=== PATIENT | male | born 1985 | race Caucasian/White ===

== ENCOUNTER → 2018-01-27 08:28 | Outpatient (CLI) | payer OTHER, MEDICAID, SELFPAY ==
[2018-01-27 10:26] LABS: Add Manual Diff / Slide Review NO; Basophils Percent Auto 0.7 % (0-2); Eosinophils Percent Auto 0.4 % (2-4); Hemoglobin 10.9 g/dL (13.5-17.5); Lymphocytes Percent Auto 7.6 % (25-40); Mean Corpuscular HGB Conc 32.2 % (30-36); Mean Corpuscular Hemoglobin 24.4 PG (26-34); Mean Corpuscular Volume 75.8 fL (80-100); Monocytes Percent Auto 12.9 % (3-14); Neutrophils Absolute Auto 9300 /uL (3000-5900); Neutrophils Percent Auto 78.4 % (50-75); Platelet Count 518 X10^3/uL (150-400); Red Blood Cell Count 4.48 X10^6/uL (4.5-5.9); Red Cell Distribution Width 17.2 % (11.6-14.8); White Blood Cell Count 11.8 X10^3/uL (4.5-11.0)
[2018-01-27 11:10] LABS: Alanine Aminotransferase 38 IU/L (21-72); Albumin 3.2 g/dL (3.5-5.0); Albumin Globulin Ratio 0.8 (1.0-2.8); Alkaline Phosphatase 138 U/L (38-126); Aspartate Aminotransferase 22 IU/L (17-59); Bilirubin Total 0.5 mg/dL (0.2-1.3); Bilirubin Unconjugated 0.2 mg/dL (0.0-1.1); Cholesterol 95 mg/dL (140-199); Globulin 3.8 g/dL (1.7-4.1); HDL Cholesterol 24 mg/dL (40-60); HEMOLYSIS < 15 (0-50); LDL Cholesterol Calculated 63 mg/dL (<100); Triglycerides 40 mg/dL (35-150)
[2018-01-27 11:19] LABS: Hemoglobin A1C% w Est Avg Glu 5.2 % (4.0-6.0)
[2018-01-27 11:27] LABS: TSH w/ Reflex to FT4 1.26 uIU/mL (0.47-4.68)
[2018-01-27 13:00] LABS: Free T3, Triiodothyronine Free 3.29 pg/mL (2.77-5.27); Free T4, Direct Thyroxine 1.69 ng/dL (0.78-2.19)
== END ==
PROVIDERS: PCP Nurse Practitioner Family; Visit Provider Nurse Practitioner Family
DX: R63.4 Abnormal weight loss (principal)
CPT/HCPCS: 36415; 80061; 80076; 83036; 84439; 84443; 84481; 85025

== ENCOUNTER → 2018-02-01 09:47 | Outpatient (CLI) | payer OTHER, MEDICAID, SELFPAY ==
--- NOTE | 2018-02-01 09:48 | DI.CT.S_ITS ---
PROCEDURE: CT SOFT TISSUE NECK WO CON INDICATIONS: enlarged lymph nodes - concerning labs. TECHNIQUE: Non-contrast 3.0 mm axial sections acquired from the sella to the aortic arch. Additional oblique axial 3.0 mm sections acquired through the pharynx. 3 mm thick coronal and sagittal reformats were generated. For radiation dose reduction, the following was used: automated exposure control. COMPARISON: None. FINDINGS: Image quality: Significantly limited by the absence of intravenous contrast. Lymph nodes: At the base of the right neck deep to the sternocleidomastoid muscle there is a large lymph node measuring up to 3.2 cm AP, 4.1 cm transverse and 6.2 cm craniocaudad. The exact boundaries of this mass are difficult to visualize given the absence of intravenous contrast, but this extends into the anterior aspect of the right supraclavicular fossa and does not appear to invade adjacent structures. A second smaller enlarged lymph node is seen at the junction of the base of the right neck and supraclavicular fossa on the right immediately deep to the skin surface measuring up to 2.1 x 2.4 x 2.5 cm. Additional smaller but enlarged lymph nodes are seen more laterally within the right supraclavicular fossa and extending into the right axilla superiorly where the largest lymph node present is rounded and measures up to 2 cm. Vessels: Non-opacified vessels appear normal in caliber. Neck spaces: The oropharynx, nasopharynx, and pharynx demonstrate no mucosal lesions. The vocal cords, false vocal cords, pyriform sinuses, epiglottis, vallecula, and tongue base all appear normal. Extramucosal spaces appear unremarkable. Glands: The parotid and submandibular glands appear normal, without stones are relatively poorly seen due to absence of intravenous contrast. Thyroid gland appears normal where well visualized. Miscellaneous: Visualized brain and orbits appear normal. Lung apices appear clear. Superficial soft tissues appear normal. The within the superior mediastinum bilaterally, right greater than left, additional enlarged nodes are seen, the largest which is present on the right compressing the trachea moderately measuring up to 6.9 x 5.5 cm, and extending inferiorly below the imaging margin further into the right mediastinum. The inferior margin of the trachea is significantly compressed as is the origin of the right mainstem bronchus, reduced to at least 50% of its normal diameter in the AP dimension. IMPRESSION: The study is significantly compromised by the absence of intravenous contrast. Malignant appearing adenopathy is present bilaterally within the upper mediastinum, and present at the right neck inferiorly and extending into the right supraclavicular fossa. This then extends into the right axilla to a mild degree. A small degree of adenopathy is also present at the inferior aspect of the left supraclavicular fossa contiguous with the definite left-sided adenopathy present within the mediastinum. Note is made of significant compression of the lower margin of the trachea and the visualized portion of the right mainstem bronchus. Surgical consultation is recommended, contrast enhanced CT scanning of the chest abdomen and pelvis is recommended. Presumed etiology is lymphoma. Findings were called to the office of the ordering health care provider with results provided to a bio medical technician who will convey the information directly to the ordering health care provider. Dictated by: Gallo Porter M.D. on 02/01/2018 at 11:50 Approved by: Gallo Porter M.D. on 02/01/2018 at 12:05
== END ==
PROVIDERS: PCP Nurse Practitioner Family; Visit Provider Nurse Practitioner Family
DX: R59.0 Localized enlarged lymph nodes (principal)
CPT/HCPCS: 70490

== ENCOUNTER → 2018-02-08 12:01 | Outpatient (CLI) | payer OTHER, MEDICAID, SELFPAY ==
--- NOTE | 2018-02-08 12:56 | DI.CT.S_ITS ---
PROCEDURE: CT CHEST ABD PEL W CON INDICATIONS: metastatic disease TECHNIQUE: After the administration of oral and intravenous contrast, 5 mm thick sections acquired from the lung apices to the symphysis. 5 mm coronal and sagittal reformats were performed, with additional 7 mm coronal MIP reformats through the lungs. For radiation dose reduction, the following was used: automated exposure control, adjustment of mA and/or kV according to patient size. COMPARISON: [facility], CT, CT SOFT TISSUE NECK WO CON, 02/01/2018, 9:47. FINDINGS: Image quality: Excellent. CHEST: Lungs and pleura: No acute airspace opacities. 4 mm nodule noted in the lateral segment of the right middle lobe (series 3, image 35). Trace right-sided pleural effusion. No pneumothorax. Central and peripheral airways appear patent and normal in caliber. Mediastinum: Heart size is normal. No pericardial effusion. Bulky mediastinal, right hilar and left hilar lymphadenopathy noted. No axillary lymphadenopathy. Thoracic aorta and central pulmonary arteries are normal in size. Esophagus is normal in caliber. No hiatal hernia. Chest wall: Bulky right bilateral level IV neck lymphadenopathy noted. Bulky right supraclavicular fossa lymphadenopathy is noted. Thyroid gland is within normal limits. ABDOMEN: Solid organs: Liver is normal in size and enhancement. 9 mm cyst noted in the right lobe of the liver. 4 mm hypoattenuating lesion noted in the lower right hepatic lobe and the lateral segment of the left hepatic lobe which may represent a small cysts, however lesions are too small to definitively characterize. Gallbladder is within normal limits. Biliary system is non dilated. Pancreas enhances normally. Spleen is normal in size and enhancement. No adrenal nodules. Kidneys demonstrate normal size and enhancement, without hydronephrosis. 2 mm nonobstructing stones noted in the lower pole of the left kidney. One of the 2 mm nonobstructing stone noted in the upper pole of the right kidney. Peritoneum and bowel: Bowel loops demonstrate normal wall thickness and caliber. No free fluid or air. Nodes and vessels: 1.1 cm aortocaval enlarged lymph node is noted in the upper retroperitoneum. No mesenteric adenopathy by size criteria. Aorta and inferior vena cava are normal in size. Miscellaneous: No ventral hernias. PELVIS: Genitourinary: Bladder wall thickness is normal. Miscellaneous: No inguinal hernias or adenopathy. Bones: No suspicious bony lesions. No vertebral body compression fractures. IMPRESSION: 1. Bulky bilateral neck base, right supraclavicular fossa, mediastinal and bilateral hilar lymphadenopathy concerning for lymphoma or metastatic disease. 2. 1.1 cm retrocaval upper retroperitoneal lymphadenopathy concerning for lymphoma versus metastatic disease. 3. 2 mm nonobstructing bilateral renal stones. 4. 4 mm right middle lobe nodule. Recommend followup imaging based on criteria outlined below. 5. Trace right-sided pleural effusion. Fleischner Society criteria for SOLID lung nodule followup. Nodule size (mm)Low-risk patientHigh-risk patient<6 (single or multiple)No routine followup.Optional CT at 12 months. 6-8 (single or multiple)CT at 6-12 months, then optional CT at 18-24 mo.CT at 6-12 months, then CT at 18-24 months. >8 (single)CT at 3 months, PET-CT, or biopsy. Same as for low-risk pts. >8 (multiple)CT at 3-6 months, then optional CT at 18-24 mo.CT at 3-6 months, then CT at 18-24 months. Recommendations do not apply to lung cancer screening, patients with immunosuppression, or patients with known primary cancer. Dictated by: Kasey Peck MD, PhD on 02/08/2018 at 14:00 Approved by: Kasey Peck MD, PhD on 02/08/2018 at 14:11
== END ==
PROVIDERS: PCP Nurse Practitioner Family; Visit Provider Nurse Practitioner Family
DX: C79.9 Secondary malignant neoplasm of unspecified site (principal); R59.1 Generalized enlarged lymph nodes; N20.0 Calculus of kidney; R91.1 Solitary pulmonary nodule
CPT/HCPCS: 71260; 74177; Q9967

== ENCOUNTER 2018-02-10 10:55 | Day surgery (SDC) | payer OTHER, MEDICAID, SELFPAY ==
[2018-02-10] VITALS (11 sets, daily range): BP systolic 97–128; BP diastolic 65–81; PULSE 115–133; RESP 8–18; TEMP 36.7–37.8; O2SAT 89–97; BMI 18.4
--- NOTE | 2018-02-10 | PATH_ITS ---
Note [facility] Accession Number: [id number] TESTS RESULT FLAG UNITS REF RANGE LAB Clinician Provided Cytology Information No. of containers..04 Previously Prepared Cytology Slide 01 CERVICAL LYMPH NODE DIAGNOSIS: [A] 01 CERVICAL LYMPH NODE, FINE NEEDLE ASPIRATION. SUSPICIOUS FOR LYMPHOMA, SEE COMMENT. COMMENT: EXAMINATION OF THE ASPIRATE SMEARS (TWO ALCOHOL-FIXED AND TWO AIR-DRIED, GIEMSA STAINED SLIDES) REVEALED SCATTERED ATYPICAL LYMPHOID CELLS WITH ENLARGED NUCLEUS, PROMINENT NUCLEOLUS, ABUNDANT CYTOPLASM, OCCASIONALLY BINUCLEATE/MULTINUCLEATED CELLS (HODGKIN-LIKE AND ANDREA-MESERET LIKE CELLS), IN A BACKGROUND OF PREDOMINANTLY SMALL LYMPHOCYTES AND NEUTROPHILS. ALTHOUGH THESE FEATURES ARE HIGHLY SUSPICIOUS FOR HODGKIN LYMPHOMA, THE POSSIBILITY OF A B- OR T-CELL NON-HODGKIN LYMPHOMA WITH HODGKIN-LIKE OR QHQA-DRIUMHHYF-PFNW CELLS CANNOT BE ENTIRELY EXCLUDED. FURTHER WORK-UP WITH EXCISIONAL BIOPSY IS RECOMMENDED TO ACCURATELY LABEL THOSE ATYPICAL LYMPHOCYTES AND OBTAIN A DEFINITE DIAGNOSIS. Pathologist ICD10: 01 R59.0 Deysi Borjas MD, Pathologist NPI- [id number] Raffy Key, Merchandise Pickup/Receiving Associate ([facility]) 01 0 /VDU FLAG LEGEND: L-Low Normal,H-High Normal,LL-Alert Low,HH-Alert High <-Panic Low,>-Panic High,A-Abnormal,AA-Critical Abnormal Performed at: 01 =Z [facility] [address] [place] [address] [address] [facility], [place] [address] Avelino Sandoval MD, Performed at: 01 [facility] [address], [place], [place] [id number] MD Avelino Sandoval MD Phone: [phone]
[2018-02-10] MEDS: LACTATED RINGERS 1,000 ML 100 ML IV (11:42)
--- NOTE | 2018-02-10 12:25 | PM.PREOP ---
Pre-operative Note Interval Note Pre-op Check: Yes History & Physical Reviewed by Physician Changes: No
[2018-02-10] MEDS: CEFAZOLIN 2 GM/100 ML FROZ.PIGGY IV (12:50)
--- NOTE | 2018-02-10 13:21 | SUR.OPER ---
Supine on padded OR bed, head on pillow, BILATERAL arms padded and tucked at side, legs uncrossed, safety belt at thigh, tape over blanket over lower legs .
[2018-02-10] MEDS: BUPIVACAINE 0.5% (PF) VIAL 30 ML INJ (13:38)
[2018-02-10] MEDS: LIDOCAINE 1% W/EPI INJ 20 ML INJ (13:39)
--- NOTE | 2018-02-10 13:51 | P.OP_ITS ---
Operative Date/Time/Diagnoses Date of procedure: 02/10/18 Time of procedure: 13:49 Pre-op diagnosis: Right neck mass Post-op diagnosis: same Procedure & Clinicians Procedure: Biopsy of Right Neck Mass Same procedure as scheduled: Yes Indications: Unexplained weight loss and enlarging right neck mass consistent with bulky adenopathy Surgeon: Marleny Calvo Click Yes if Unassisted: Yes Anesthesia Type: General (Kotlarczyk) Operative Notes Findings: White hypervascular mass with a lobular, glossy interior Closure Type: primary Implants & Drains: Portions of the mass sent for lymph node protocol Estimated Blood Loss (mL): 3 Procedure in detail: After obtaining informed consent, the patient was brought to the operating room and and placed in supine position on the operating table. Following successful induction of general endotracheal anesthesia, appropriate padding of all bony prominences and placement of appropriate monitors, the right neck was prepped and draped in the standard surgical fashion. A Time Out was held per SCOAP protocol. Following infiltration with local anesthetic to create a field block, an incision was created at the base of the neck directly over the lesion. This was carried to the platysma and the muscle over the lesion divided with cautery. The mass was exposed in the field. It was noted to be flanked and draped with distended veins. These were gently retracted. It was not possible to remove the entire mass. A 2 cm wedge was taken from the center of the lesion. The internal surface of the mass had a lobular, grayish and glossy appearance. The tissue was divided into 4 segments for pathological analysis. The wound was checked for hemostasis. The entire cut surface of the node was noted to ooze nearly constantly. I chose to place Surgicel over the open surface and pressure was held for 5 minutes. The wound was then noted to be hemostatic. The platysma was closed with vicryl suture and monocryl was placed in the skin. Exofin was applied to the skin. All sponge, needle, and instrument counts were correct at the conclusion of the case. The patient was allowed to awaken from anesthesia without difficulty and taken to the post anesthesia care unit in good condition. Complications: none Condition: stable Disposition: PACU Plan for aftercare: 1. Discharge to home after an appropriate interval of observation 2. Follow-up with me in 10 days. 3. The patient has already been referred to Oncology here at the [facility].
--- NOTE | 2018-02-10 14:40 | SUR.PHASEII ---
dr coronado to bedside to speak with pt and his dad.
--- NOTE | 2018-02-10 14:41 | SUR.PHASEII ---
pt on nasal cannula 1/l and continuous pulse ox. surgical site c/d/i.
--- NOTE | 2018-02-10 14:54 | SUR.PHASEII ---
DR KELLY IN TO SPEAK WITH PT AND HIS FATHER. PT RESTING QUIETLY WITH FATHER AT BEDSIDE, PT WITH NO C/O VOICED, ICE PACK TO NECK INCISION SITE, INCISION SITE CLEAN AND INTACT WITH NO REDNESS OR SWELLING NOTED. PT TOLERATING PO FLUIDS WELL, DENIES ANY NAUSEA OR VOMITING. WILL CONTINUE TO OBSERVE AND MONITOR.
[2018-02-10] MEDS: OXYCODONE IR 5 MG TABLET PO (16:00)
--- NOTE | 2018-02-10 16:34 | SUR.PHASEII ---
1625 pt tolerating po juice, incision site is clean and dry, medicated with po pain pill for mild discomfort, pt denies any nausea. instructions reviewed with pt and father with verbalized understanding.
--- NOTE | 2018-02-10 21:14 | PATH_ITS ---
[id number] Control ID: [id number] [facility] PATHOLOGY ONLY [id number] [address] [place] [address] Patient Details MATHIEU KOO : 1985 Age(y/m/d): Gender: M SSN: [id number] Specimen Details Date collected: 02/10/20182113 Local Date received: 02/10/2018 Date entered: 02/10/2018 Date reported: 02/17/2018 1305 ET Physician Details Ordering: Maddison Calvo Referring: ID: ESTEPHANIA NPI: Additional Information: Clinical Info: [id number] Pathology Report Tests Ordered: Clinician Provided ICD Code(s) & Clinical History: Material Submitted: () PART A: CERVICAL LYMPH NODE Microscopic Description: (01) H/E-stained sections of both Parts A and B reveal portions of an excisional biopsy of lymph node with similar histologic features. The luis architecture is essentially entirely effaced by an atypical infiltrate comprised of abundant large, atypical, discohesive cells in a mixed inflammatory background of smaller lymphocytes, histiocytes, and plasma cells, with fewer neutrophils and eosinophils. There is increased background fibrosis, and in some foci, thick fibrous bands surround nodules of the atypical infiltrate. The neoplastic cells include Hodgkin variant cells, Nam-Nguyễn cells, and scattered mummified and multinucleate cells. No discrete zones of geographic/coagulative necrosis are evident. Select immunohistochemical studies* and a chromogenic EBER1 in-situ hybridization study* were performed on block B1 for further evaluation of the neoplastic cells, with accompanying positive and negative controls. The neoplastic cells express uniform CD30, MUM1, and Pax5 (with weak to moderate intensity), at least variable CD15 (with either a Golgi-only or Golgi and membranous pattern), and variable Oct2 with very weak intensity. The neoplastic cells are negative for CD20, Bob1, CD3, CD43, and ALK1. The neoplastic cells are also negative for EBV by MIGUEL-1 in-situ hybridization. * Technical note: These tests and their performance characteristics have been determined by [facility]. They have not been cleared or approved by the U.S. Food and Drug Administration. The FDA has determined that such clearance or approval is not necessary. These tests are used for clinical purposes, and should not be regarded as investigational or for research. PART B: CERVICAL LYMPH NODE Diagnosis: (01) Parts A and B: CERVICAL LYMPH NODE, EXCISIONAL BIOPSIES: Classic Hodgkin Lymphoma (CHL; see Comments) 02/17/2018 Pathologist Provided ICD Code(s): () C81.11 CPT Codes: () 191005, 049390, T12489, M71528, J52031 Gross Description: (01) Received in formalin, labeled cervical lymph node, is a piece of marte-soriano rubbery tissue (1.3 x 1.0 x 0.5 cm). Bisected and entirely submitted in cassette A1. Received in B plus fix, labeled cervical lymph node, is a blue - stained piece of rubbery tissue (1.3 x 1.0 x 0.8 cm). Bisected and entirely submitted in cassette B1. Note: Per the requisition, tissue was also received in two tubes of RPMI to be sent to flow cytometry for analysis. Per the requisition, sterile slides in B fix and sterile slides-dry were also submitted. [id number]) [facility] Comments: (01) The architectural features of the lymphoma in these cervical lymph node biopsies favor a nodular sclerosis CHL histologic subtype. Flow cytometric evaluation was also performed on a separate sample of the patient's lymph node preserved in RPMI, which did not reveal any immunophenotypic evidence of a non- Hodgkin lymphoma ([id number]), although large Hodgkin-like cells were seen on a cytocentrifuge preparation of the specimen. Note that Hodgkin lymphoma is typically not able to be identified in routine flow cytometric analyses. ACC: [id number] PID: [id number] Electronically signed by () Mell Urbina MD, Pathologist NPI- [id number]
== END 2018-02-10 16:35 ==
LOC: OR 10:56
PROVIDERS: PCP Nurse Practitioner Family; Visit Provider Surgery
PROC: (CPT 21550; principal; 2018-02-10 14:00)
DX: R59.0 Localized enlarged lymph nodes (principal); R63.4 Abnormal weight loss
CPT/HCPCS: 21550; 88305; 88307; 88341; 88342; 88365; J0330; J0690; J1100; J2250; J2405; J2704; J3010

== ENCOUNTER → 2018-02-23 11:37 | Outpatient (CLI) | payer OTHER, MEDICAID, SELFPAY ==
--- NOTE | 2018-02-25 10:04 | PM.PFT.1 ---
Pulmonary Function Test Referral & Results Date Patient Seen: 02/23/18 Requesting provider: Dustin Conner Results: The spirometry demonstrates an FVC of 3.90 L which is 63% of predicted. The FEV1 was measured at 3.22 L which is 65% of predicted. The FEV1/FVC ratio was 83 which is 102% of predicted. Following the administration of bronchodilator there was no appreciable change. Lung volumes show an SVC of 3.8 L which is 66% of predicted. The diffusing capacity was measured at 25.2 to which is 66% of predicted. No hemoglobin value was provided, so no correction for potential anemia could be made, if appropriate. The maximum voluntary ventilation was normal Interpretation: This study demonstrates moderate obstructive lung disease based on reduction in FEV1 although patient's flow volume curve does not show the usual concave shape to suggest serious obstructive lung disease. There is also evidence of restrictive lung disease based on reduction in lung volumes. There is also a similar mild to moderate reduction in diffusing capacity suggesting element of disease at the capillary alveolar level. This is altogether consistent with a diagnosis of COPD. Clinical correlation suggested.
== END ==
PROVIDERS: Visit Provider Internal Medicine Hematology & Oncology
DX: C81.10 Nodular sclerosis Hodgkin lymphoma, unspecified site (principal)
CPT/HCPCS: 94010; 94060; 94726; 94729

== ENCOUNTER 2018-02-24 12:59 | Day surgery (SDC) | payer OTHER, MEDICAID, SELFPAY ==
[2018-02-22 08:50] VITALS: BMI 18.4
--- NOTE | 2018-02-24 | DI.RAD.S_ITS ---
PROCEDURE: XR CHEST 1V INDICATIONS: POST OP PORT A CATH INSERTION TECHNIQUE: One view of the chest was acquired. COMPARISON: [facility], CT, CT CHEST ABD PEL W CON, 02/08/2018, 13:27. [facility], CR, XR CHEST 1V, 02/24/2018, 15:09. FINDINGS: Surgical changes and devices: There is a new left chest wall subclavian Port-A-Cath with the tip projecting over the left innominate vein. Lungs and pleura: No pleural effusions or pneumothorax. No focal consolidation. Mediastinum: There is mediastinal widening and right hilar fullness consistent with lymphadenopathy seen on recent CT. Heart size is normal. Bones and chest wall: No suspicious bony lesions. Overlying soft tissues appear unremarkable. IMPRESSION: 1. No evidence of pneumothorax. 2. Mediastinal and right hilar lymphadenopathy redemonstrated. Dictated by: Avelino Vasquez M.D. on 02/24/2018 at 16:36 Approved by: Avelino Vasquez M.D. on 02/24/2018 at 16:37
--- NOTE | 2018-02-24 | DI.RAD.S_ITS ---
PROCEDURE: XR CHEST 1V INDICATIONS: PORT A CATH INSERTION TECHNIQUE: One view of the chest was acquired. COMPARISON: [facility], FRANCES, XR CHEST 1V, 02/24/2018, 15:36. [facility], , CHEST 2 VIEW, 11/13/2016, 12:18. FINDINGS: Single fluoroscopic view of the chest demonstrates a localization wire projecting over the left innominate vein extending into the superior vena cava. IMPRESSION: 1. Fluoroscopic image demonstrates localization wire extending into the expected region of the superior vena cava. Dictated by: Avelino Vasquez M.D. on 02/24/2018 at 16:33 Approved by: Avelino Vasquez M.D. on 02/24/2018 at 16:34
[2018-02-24 13:19] VITALS: BP 115/62; PULSE 130; RESP 28; TEMP 36.7; O2SAT 98; BMI 17.5
[2018-02-24] MEDS: LACTATED RINGERS 1,000 ML 42 ML IV (13:42)
[2018-02-24] MEDS: CEFAZOLIN 2 GM/100 ML FROZ.PIGGY IV (14:52)
--- NOTE | 2018-02-24 15:11 | SUR.OPER ---
Supine on padded OR bed, head on pillow, left arm padded and tucked at side, legs uncrossed, safety belt at thigh, tape over blanket over lower legs .
[2018-02-24] MEDS: BUPIVACAINE 0.5% (PF) VIAL 30 ML INJ (15:18)
[2018-02-24] MEDS: LIDOCAINE 1% W/EPI INJ 20 ML INJ (15:19)
[2018-02-24] MEDS: SODIUM CHLORIDE 0.9% FLUSH 10 ML IV (15:20)
--- NOTE | 2018-02-24 15:31 | P.OP_ITS ---
Operative Date/Time/Diagnoses Date of procedure: 02/24/18 Time of procedure: 15:29 Pre-op diagnosis: Hodgkin's lymphoma Post-op diagnosis: same Procedure & Clinicians Procedure: Left subclavian power port placement Same procedure as scheduled: Yes Indications: Facilitation of chemotherapy Surgeon: Marleny Calvo Click Yes if Unassisted: Yes Anesthesia Type: MAC +/- (Dr. Rosen) Operative Notes Findings: Power port in good position in the superior vena cava Closure Type: primary Specimen(s): none sent Implants & Drains: Low-profile PowerPort Estimated Blood Loss (mL): 5 Procedure in detail: After obtaining informed consent, the patient was brought to the operating room and placed in the supine position on the operating table. Following successful induction of general endotracheal anesthesia, appropriate padding of all bony prominences, and placement of appropriate monitors, the left chest was prepped and draped in a standard surgical fashion. A timeout was held per SCOAP protocol.A mixture of local anesthetics was infiltrated in the deltopectoral groove on the left side. The right subclavian vein was accessed via the Seldinger technique and a wire was gently placed into the vein. Fluoroscopy was used to verify position of the wire in the subclavian vein. We next created a pocket of approximately 2 cm inferior to the access site of the vein. This was checked for size and found to fit the port nicely. The included tunneling device was used to place the tubing and the pocket connecting it to the access site of the subclavian vein. The tubing was trimmed to an appropriate length and connected to the Port-A-Cath. The Port -A-Cath was sewn into place in the pocket using interrupted Prolene sutures. The pocket was closed in 2 layers. The dilator and introducer were then gently passed over the wire and into the subclavian vein. The wire and dilator were removed leaving only the introducer. The tubing was then placed in the introducer and the introducer removed per branch assistant's directions. The port was then flushed with saline solution and found to be functional and in good position. It was then hep-locked with 2000 units of heparin.The incision was closed in 2 layers with Vicryl and Monocryl sutures. Dermabond was applied to the skin. All sponge, needle, and instrument counts were correct at the conclusion of the case. Patient was allowed to awaken from anesthesia and taken to the post-anesthesia care unit in good condition. Complications: none Condition: stable Disposition: PACU Plan for aftercare: 1. Discharge to home 2. The port is ready for use
[2018-02-24 15:35] VITALS: BP 108/62; PULSE 139; RESP 18; TEMP 37.2; O2SAT 96
== END 2018-02-24 16:08 | disposition home or self-care (01) ==
PROVIDERS: PCP Nurse Practitioner Family; Visit Provider Surgery
PROC: (CPT 36561; principal; 2018-02-24 13:45)
DX: C81.90 Hodgkin lymphoma, unspecified, unspecified site (principal); Z45.2 Encounter for adjustment and management of vascular access device
CPT/HCPCS: 36561; 71045; 76000; C1788; J0690; J1644; J2250; J2704; J3010

== ENCOUNTER → 2018-03-10 09:38 | Outpatient (CLI) | payer OTHER, MEDICAID, SELFPAY ==
--- NOTE | 2018-03-10 09:41 | DI.NM.S_ITS ---
PROCEDURE: [facility] RADIOPHARM[facility]UTICAL: 24.8 mCi Tc-99m labeled autologous red cells IV. INDICATIONS: Nodular sclerosis Hodgkin lymphoma TECHNIQUE: After intravenous administration of autologous labeled WBC, [place] views of the chest were obtained. A region of interest was drawn around the left ventricle to calculate left ventricle ejection fraction. COMPARISON: None. FINDINGS: The heart and great vessels are of normal size and configuration. The left ventricle contracts normally, with left ventricle ejection fraction of 62.6%. Normal ejection fractions for this study are above 55%. A drop from baseline ejection fraction of greater than 10 percentage points or to below 45% on follow-up studies may be considered significant. IMPRESSION: Normal left ventricular ejection fraction (62.6%). Dictated by: Clarisa Duarte M.D. on 03/10/2018 at 12:02 Approved by: Clarisa Duarte M.D. on 03/10/2018 at 12:03
== END ==
PROVIDERS: PCP Nurse Practitioner Family; Visit Provider Internal Medicine Hematology & Oncology
DX: C81.10 Nodular sclerosis Hodgkin lymphoma, unspecified site (principal)
CPT/HCPCS: 78472; A9512; A9538

== ENCOUNTER → 2018-08-19 13:30 | Oncology outpatient (ONC) | payer OTHER, MEDICAID, SELFPAY ==
--- NOTE | 2018-02-19 10:06 | P.CONONC_ITS ---
History of Present Illness - Data of Consult Patient: new to practice Consult date: 02/19/18 Requesting Physician: Marleny Calvo MD Primary Care Provider: CHERELLE Breen - Consult Narrative Reason for consult: Newly diagnosed classical Hodgkin's lymphoma Narrative: [place] Shrestha II is a 32 year old male without any past medical or surgical history. Patient reported a ?massive? weight loss of about 20 lb over maybe the past 2-3 months. In addition, patient has been losing energy and feeling tired. Patient also endorsed an early fullness after eating even though feeling hungry. He denies fever or chills. Patient reports some mild night sweats. Patient thought it might be due to thyroid problems as suggested by his friends. He was also reporting some cough especially at certain positions for example leaning forward and he was not able to lie on the right side. He was initially evaluated by CHERELLE South on January 26, 2018. On physical examination, lymphadenopathy was noted to the right and supraclavicular region. CT soft tissue neck without contrast was obtained on February 01, 2018. The scan showed malignant appearing adenopathy bilaterally within the upper mediastinum, and the right neck inferiorly and extending into the right supraclavicular fossa; these then extends into the right axilla to a mild degree. A small degree of adenopathy is also present and the inferior aspect of the left supraclavicular fossa contiguous with the definite left- sided adenopathy present within the mediastinum. Note was made of significant compression of the lower margin of the trachea and the visualized portion of the right mainstream bronchus. February 08, 2018 CT scan of the chest abdomen and pelvis with contrast was performed. The results showed bilateral bulky neck base lymph nodes, right supraclavicular fossa, mediastinal and bilateral hilar lymphadenopathy concerning for lymphoma or metastatic disease, 1.1 cm retrocaval upper retroperitoneal lymphadenopathy concerning for lymphoma versus metastatic disease, 2 mm nonobstructing bilateral renal stones, 4 mm right middle lobe nodule and right sided trace pleural effusion chief. Patient thereafter was referred to Dr. Calvo for excisional biopsy. February 10, 2018, Dr. Calvo performed biopsy of right neck mass. The surgical pathology reported classic Hodgkin lymphoma. In the comment it says the architectural features of the lymphoma in these cervical lymph node biopsies favor a nodular sclerosis classical Hodgkin's lymphoma histologic subtype. Patient reports pain?: No Home Medications and Allergies Home Medications Medication Instructions Recorded Confirmed Type multivitamin tablet 1 tab PO DAILY 02/09/18 02/19/18 History ondansetron 4 mg PO QID PRN #10 tab 02/10/18 02/19/18 Rx oxycodone 5 mg PO Q4-6H PRN #20 tab 02/10/18 02/19/18 Rx Allergies Allergy/AdvReac Type Severity Reaction Status Date / Time No Known Drug Allergies Allergy Verified 02/09/18 08:58 Medical History - Medical, Surgical, Family History Medical History: Medical History (Last Updated 02/10/18 @ 07:28 by Kylee Chan RN) Cough Recent unexplained weight loss Family History: Family History (Last Reviewed 02/09/18 @ 09:30 by Marleny Calvo MD) Grandmother Diabetes mellitus Cancer - Social History Smoking Status: Never smoker Substance Use Type: former substance user (in college) Alcohol Intake Frequency: holidays/special occasions only Current Occupational Status: unemployed Review of Systems - Patient Self-Reported Symptoms SR Constitution: Weight loss/gain, Fatigue/Malaise, Night Sweats (some) SR respiratory issues: Cough (in certain posture, i.e. slumped over, can sleep on the right side) SR Gastrointestinal issues: Poor or no appetite All systems PM: reviewed and no additional remarkable complaints except as stated Exam Vital signs: Temp 99.8 F H 02/19/18 10:10 Pulse 146 H 02/19/18 10:10 Resp 20 02/19/18 10:10 BP 128/73 02/19/18 10:10 Pulse Ox 97 02/19/18 10:10 ECOG 1 Narrative: Constitutional: Well developed, thin, not in any acute respiratory distress, average body habitus, well groomed, pleasant and cooperative. Here by himself HEENT: Normocephalic atraumatic. Extraocular muscle movement intact. Pupils are round, equal and reactive to light and accommodations. Anicteric sclera. No hearing difficulty; Oral mucus membrane moist and without ulcers. Neck: Supple. A larger irregular mass noted on the right supraclavicular fossa , measuring at least 10 cm. Bx incision noted w/o erythema or swelling. Respiratory: No use of accessory muscles. Clear to auscultation, and no wheezes or rales or rubs. Cardiovascular: Regular rate and rhythm, S1 and S2 normal, no murmurs gallops or rubs. No JVD. No pitting edema of lower extremities. Abdomen: Soft, nontender, non-distended, bowel sounds normal, no palpable organomegaly, no hernia, no palpable masses. Lower extremities: No palpable pedal edema. Lymphatic: mass/lymph node of neck note (see above), no palpable lymph nodes in axillae or groins. Musculoskeletal: normal gait and station, no clubbing, no cyanosis, no pitting edema. Skin: no rashes, no ulcers, no petechiae Neurological: Awake and alert and oriented x3. CN II-XII grossly intact. No focal motor or sensory deficit. Psychiatric: Good judgment, good insight, normal affect, normal thought process , cooperative, no depression, no anxiety. Results - Labs Reviewed Assessment and Plan (1) Hodgkin lymphoma, nodular sclerosis 01/2018 presented with wt loss, anorexia, fatigue for 2-3 months; 02/10/2018 right supraclavicular lymphadenopathy biopsy confirmed nodular sclerosis Hodgkin's lymphoma; 02/08/2018 CT CAP bilateral bulky neck base lymph nodes, right supraclavicular fossa, mediastinal and bilateral hilar lymphadenopathy, 1.1 cm retrocaval upper retroperitoneal lymphadenopathy, right middle lobe nodule and right trace pleural effusion chief. Likely stage IIIB, pending complete staging study. I reviewed the history, the CT scans as well as the pathology with the patient. I explained to the patient that Hodgkin's lymphoma is a highly curable disease. The 1st step is to complete the staging. I talked with the patient that PET-CT usually is the recommended next scanning test. I would also proceed with port placement in preparation for planned chemotherapy. Plan: 1. CBC, CMP, LDH, ESR, B2M, 2. HBsAg, HBsAb,HBcAg, HepC Ab, HIV screening 3. MUGA scan 4. ECG 5. PFT 6. Port placement 7. RTC MD visit 03/04/2018, repeat CBC, CMP
[2018-02-19 10:10] VITALS: BP 128/73; PULSE 146; RESP 20; TEMP 37.7; O2SAT 97
--- NOTE | 2018-02-19 10:23 | ONC.NAV ---
Description: New Pt Intro Activity: Met with pt to introduce myself as the Pt Antonio/SCRUB NURSE, offer services card, and establish initial rapport. Pt was recently diagnosed with what is thought to be lymphoma, he is here today to establish care and have his initial consult with Dr. Conner. Pt recently moved back in with his parents as a result of this diagnosis, and states that he has a very close group of longtime friends that are supporting him at this time. SCRUB NURSE discussed the availability of resources, support, and the [facility] Medical Relief Fund. He does not identify any immediate needs at this time. Plan: Monitor for support/resource needs/assistance in adjusting to new diagnosis and impending treatment.
[2018-03-03 13:27] LABS: Add Manual Diff / Slide Review NO; Eosinophils Percent Auto 1.3 % (2-4); Hematocrit 31.9 % (41-53); Hemoglobin 10.2 g/dL (13.5-17.5); Lymphocytes Percent Auto 9.3 % (25-40); Mean Corpuscular Hemoglobin 23.7 PG (26-34); Mean Corpuscular Volume 74.2 fL (80-100); Monocytes Percent Auto 10.2 % (3-14); Neutrophils Absolute Auto 8300 /uL (3000-5900); Neutrophils Percent Auto 78.2 % (50-75); Platelet Count 530 X10^3/uL (150-400); Red Blood Cell Count 4.29 X10^6/uL (4.5-5.9); Red Cell Distribution Width 16.9 % (11.6-14.8); White Blood Cell Count 10.6 X10^3/uL (4.5-11.0)
[2018-03-03 13:55] LABS: Erythrocyte Sedimentation Rate 102 MM/HR (0-15)
[2018-03-03 14:41] LABS: Alanine Aminotransferase 44 IU/L (21-72); Albumin 3.5 g/dL (3.5-5.0); Albumin Globulin Ratio 0.8 (1.0-2.8); Alkaline Phosphatase 153 U/L (38-126); Aspartate Aminotransferase 37 IU/L (17-59); Bilirubin Total 0.3 mg/dL (0.2-1.3); Blood Urea Nitrogen 15 mg/dL (9-20); Carbon Dioxide 30 mmol/L (22-32); Chloride 99 mmol/L (98-107); Estimated Glomerular Filt Rate > 60.0 mL/min (>60); Globulin 4.3 g/dL (1.7-4.1); Glucose 88 mg/dL (70-100); HEMOLYSIS < 15 (0-50); Lactate Dehydrogenase 965 U/L (313-618); Potassium 4.1 mmol/L (3.4-5.1); Sodium 142 mmol/L (137-145); Total Protein 7.8 g/dL (6.3-8.2)
[2018-03-03 17:13] LABS: Hepatitis B Surface Antigen NEGATIVE s/c (NEGATIVE)
[2018-03-03 17:28] LABS: HIV 1 and 2 Antibody NEGATIVE (NEGATIVE); Hep C Virus Ab w/Reflex Quant NEGATIVE s/c (NEGATIVE)
[2018-03-04 15:27] LABS: Hepatitis B Core Antibody Nonreactive (Nonreactive); Hepatitis B Core IgM Nonreactive (Nonreactive)
[2018-03-04 20:08] LABS: Beta-2-Microglobulin 2.59 mg/L (< 2.52)
[2018-03-05 13:20] VITALS: BP 114/76; PULSE 121; RESP 19; TEMP 36.6; O2SAT 100
--- NOTE | 2018-03-05 13:43 | P.PNONC_ITS ---
PN -Subjective Interval history: He presents here today for scheduled follow-up. Patient said that clinically he has been doing well except that he is still losing weight. Today his weight is 62.8 kilos. His weight on February 19 was 64.5 kilos. No fever no chills. He has good appetite. No shortness of breath no chest pain. No abdominal pain no diarrhea and no constipation. Patient underwent PET scan on March 03, 2018. The PET scan showed bilateral supraclavicular, bulky mediastinal, bilateral hilar, and right axillary lymphadenopathy consistent with lymphoma. No evidence of luis disease below the diaphragm, trace right pleural effusion and pericardial effusion, right maxillary sinusitis, and some non obstructive renal calculi bilaterally. And testing for hepatitis B, hepatitis C, H IV were all nonreactive. Omer the scan is scheduled for March 10. Patient underwent port placement on February 24, [address] Calvo. Oncological History [place] Shrestha II is a 32 year old male without any past medical or surgical history. Patient reported a ?massive? weight loss of about 20 lb over maybe the past 2-3 months. In addition, patient has been losing energy and feeling tired. Patient also endorsed an early fullness after eating even though feeling hungry. He denies fever or chills. Patient reports some mild night sweats. Patient thought it might be due to thyroid problems as suggested by his friends. He was also reporting some cough especially at certain positions for example leaning forward and he was not able to lie on the right side. He was initially evaluated by [facility] on January 26, 2018. On physical examination, lymphadenopathy was noted to the right and supraclavicular region. CT soft tissue neck without contrast was obtained on February 01, 2018. The scan showed malignant appearing adenopathy bilaterally within the upper mediastinum, and the right neck inferiorly and extending into the right supraclavicular fossa; these then extends into the right axilla to a mild degree. A small degree of adenopathy is also present and the inferior aspect of the left supraclavicular fossa contiguous with the definite left- sided adenopathy present within the mediastinum. Note was made of significant compression of the lower margin of the trachea and the visualized portion of the right mainstream bronchus. February 08, 2018 CT scan of the chest abdomen and pelvis with contrast was performed. The results showed bilateral bulky neck base lymph nodes, right supraclavicular fossa, mediastinal and bilateral hilar lymphadenopathy concerning for lymphoma or metastatic disease, 1.1 cm retrocaval upper retroperitoneal lymphadenopathy concerning for lymphoma versus metastatic disease, 2 mm nonobstructing bilateral renal stones, 4 mm right middle lobe nodule and right sided trace pleural effusion chief. Patient thereafter was referred to Dr. Calvo for excisional biopsy. February 10, 2018, Dr. Calvo performed biopsy of right neck mass. The surgical pathology reported classic Hodgkin lymphoma. In the comment it says the architectural features of the lymphoma in these cervical lymph node biopsies favor a nodular sclerosis classical Hodgkin's lymphoma histologic subtype - Patient Self-Reported Symptoms SR Constitution: Weight loss/gain SR respiratory issues: Cough (in certain posture, i.e. slumped over, can sleep on the right side) SR Gastrointestinal issues: Poor or no appetite SR Hematologic issues: Swollen lymph nodes - Additional ROS All systems PM: reviewed and no additional remarkable complaints except as stated Home Medications and Allergies Home Medications Medication Instructions Recorded Confirmed Type multivitamin tablet 1 tab PO DAILY 02/09/18 03/05/18 History ondansetron 4 mg PO QID PRN #10 tab 02/10/18 03/05/18 Rx oxycodone 5 mg PO Q4-6H PRN #20 tab 02/10/18 03/05/18 Rx lidocaine-prilocaine See Label Instructions .ROUTE 02/24/18 03/05/18 Rx .COMPLEX #30 gram oxycodone 5 mg PO Q4-6H PRN #20 tab 02/24/18 03/05/18 Rx allopurinol [Zyloprim] 300 mg PO BID #60 tab 03/05/18 Rx Allergies Allergy/AdvReac Type Severity Reaction Status Date / Time No Known Drug Allergies Allergy Verified 02/26/18 08:22 Exam Vital signs: Temp 97.8 F 03/05/18 13:20 Pulse 121 H 03/05/18 13:20 Resp 19 03/05/18 13:20 BP 114/76 03/05/18 13:20 Pulse Ox 100 03/05/18 13:20 ECOG 1 Narrative: Constitutional: Well developed, thin, not in any acute respiratory distress, average body habitus, well groomed, pleasant and cooperative. Here by himself HEENT: Normocephalic atraumatic. Extraocular muscle movement intact. Pupils are round, equal and reactive to light and accommodations. Anicteric sclera. No hearing difficulty; Oral mucus membrane moist and without ulcers. Neck: Supple. A larger irregular mass noted on the right supraclavicular fossa , measuring at least 10 cm. Bx incision noted w/o erythema or swelling. Respiratory: No use of accessory muscles. Clear to auscultation, and no wheezes or rales or rubs. Cardiovascular: Regular rate and rhythm, S1 and S2 normal, no murmurs gallops or rubs. No JVD. No pitting edema of lower extremities. Abdomen: Soft, nontender, non-distended, bowel sounds normal, no palpable organomegaly, no hernia, no palpable masses. Lower extremities: No palpable pedal edema. Lymphatic: mass/lymph node of neck note (see above), no palpable lymph nodes in axillae or groins. Musculoskeletal: normal gait and station, no clubbing, no cyanosis, no pitting edema. Skin: no rashes, no ulcers, no petechiae Neurological: Awake and alert and oriented x3. CN II-XII grossly intact. No focal motor or sensory deficit. Psychiatric: Good judgment, good insight, normal affect, normal thought process , cooperative, no depression, no anxiety. Results - Labs Laboratory Last Values WBC 10.6 X10^3/uL (4.5-11.0) 03/03/18 12:29 RBC 4.29 X10^6/uL (4.5-5.9) L 03/03/18 12:29 Hgb 10.2 g/dL (13.5-17.5) L 03/03/18 12: Hct 31.9 % (41-53) L 03/03/18 12: MCV 74.2 fL (80-100) L 03/03/18 12: MCH 23.7 PG (26-34) L 03/03/18 12: MCHC 32.0 % (30-36) 03/03/18 12:29 RDW 16.9 % (11.6-14.8) H 03/03/18 12:29 Plt Count 530 X10^3/uL (150-400) H 03/03/18 12: Neut % (Auto) 78.2 % (50-75) H 03/03/18 12:29 Lymph % (Auto) 9.3 % (25-40) L 03/03/18 12:29 [place] % (Auto) 10.2 % (3-14) 03/03/18 12:29 Eos % (Auto) 1.3 % (2-4) L 03/03/18 12:29 Baso % (Auto) 1.0 % (0-2) 03/03/18 12:29 Neut # (Auto) 8300 /uL (6561-9549) H 03/03/18 12:29 ESR 102 MM/HR (0-15) H 03/03/18 12:29 Sodium 142 mmol/L (137-145) 03/03/18 12:29 Potassium 4.1 mmol/L (3.4-5.1) 03/03/18 12: Chloride 99 mmol/L (98-107) 03/03/18 12:29 Carbon Dioxide 30 mmol/L (22-32) 03/03/18 12:29 BUN 15 mg/dL (9-20) 03/03/18 12:29 Creatinine 0.50 mg/dL (0.66-1.25) L 03/03/18 12:29 Estimated GFR > 60.0 mL/min (>60) 03/03/18 12:29 BUN/Creatinine Ratio 30.0 (6-22) H 03/03/18 12:29 Glucose 88 mg/dL (70-100) 03/03/18 12:29 Calcium 9.0 mg/dL (8.4-10.2) 03/03/18 12:29 Total Bilirubin 0.3 mg/dL (0.2-1.3) 03/03/18 12:29 AST 37 IU/L (17-59) 03/03/18 12:29 ALT 44 IU/L (21-72) 03/03/18 12:29 Alkaline Phosphatase 153 U/L (38-126) H 03/03/18 12:29 Lactate Dehydrogenase 965 U/L (313-618) H 03/03/18 12:29 Total Protein 7.8 g/dL (6.3-8.2) 03/03/18 12:29 Albumin 3.5 g/dL (3.5-5.0) 03/03/18 12:29 Globulin 4.3 g/dL (1.7-4.1) H 03/03/18 12:29 Albumin/Globulin Ratio 0.8 (1.0-2.8) L 03/03/18 12:29 Rtac-4-Gierkesuiczar 2.59 mg/L (< 2.52) H 03/03/18 12:29 Hep Bs Antigen Negative s/c (NEGATIVE) 03/03/18 12:29 Hep B Core Total Ab Nonreactive (Nonreactive) 03/03/18 12:29 Hep B Core IgM Ab Nonreactive (Nonreactive) 03/03/18 12:29 Hepatitis C Antibody Negative s/c (NEGATIVE) 03/03/18 12:29 HIV 1&2 Antibody Negative (NEGATIVE) 03/03/18 12:29 - Imaging CT scan - abdomen: report reviewed, image reviewed CT scan - chest: report reviewed, image reviewed CT scan - pelvis: report reviewed, image reviewed Assessment and Plan (1) Hodgkin lymphoma, nodular sclerosis 01/2018 presented with wt loss, anorexia, fatigue for 2-3 months; 02/10/2018 right supraclavicular lymphadenopathy biopsy confirmed nodular sclerosis Hodgkin's lymphoma; 02/08/2018 CT CAP bilateral bulky neck base lymph nodes, right supraclavicular fossa, mediastinal and bilateral hilar lymphadenopathy, 1.1 cm retrocaval upper retroperitoneal lymphadenopathy, right middle lobe nodule and right trace pleural effusion chief. 03/03/[address]: hypermetabolic bilateral supraclavicular, bulky mediastinal, bilateral hilar, and right axillary lymphadenopathy consistent with lymphoma. No evidence of luis disease below the diaphragm, trace right pleural effusion and pericardial effusion. Plan: 1. ABVD C1D1 = 03/11/2018 2. Allopurinol 300 mg bid, 60# given today 3. Chemotherapy teaching with TRIP Turner next week 4. MUGA scan as scheduled on 03/10/2018 5. RTC MD visit 03/11/2018, repeat CBC, CMP, LDH, uric acid
[2018-03-06 08:49] LABS: Hepatitis B Surf Ab Qualitativ Reactive (Nonreactive)
--- NOTE | 2018-03-09 11:47 | PM.CHEMOCOU ---
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 he presents today for chemotherapy counseling. The patient had consult with Dr Conner and plan is to move forward with chemotherapy in the form of ABVD Q 14 days. - General New Chemotherapy Patient: Yes Treatment Plan Reviewed: yes - Chemotherapy Counseling Chemotherapy Counseling: Chemotherapy Education: [place] Washburn Fady ALVAREZ provided written information on all topics discussed. Written materials printed from www.[employer] and www.[employer].org. [place] was given an overview of cancer and mechanism of action of cancer cells, that cancer is caused by cells that are dividing rapidly, and out of control. Traditional chemotherapy works by targeting the fast dividing cells and killing them. Chemotherapy affecting healthy cells dividing quickly causes many of the side effects (hair follicles, bone marrow, mucus membranes). Overview of blood cell functions of white cells to fight infection, red cells to carry oxygen, and platelets to stop bleeding was discussed, and that when bone marrow is affected by chemo, there is a decrease in production of these cells. Home care of the patient following chemotherapy was discussed. Body fluids will be contaminated for 48 hours following treatment, and any body fluids handled by caregivers should be handled wearing gloves, surfaces need to be cleaned with soap and water, any soiled linens or clothing need to be washed separately in hot water, toilet lid should be closed when flushing, person cleaning the toilet should wear gloves. How chemotherapy is administered by the RN?s in the clinic, that orders are double checked by pharmacy and checked again by two RN?s prior to administration. Nurses wear protective gear to prevent exposure to them of the chemotherapy agents which can also cause cancer. Cancer center information discussed and written hand out provided listing on-call oncologist available weekends and after hours triage R.N. hours and infusion room guide. New patient binder given to [place], which includes clinic names, phone numbers, clinic information, calendar, cancer glossary, and list of resources. Handout on advanced directives Common side effects of chemotherapy were discussed with self care tips for prevention of complications. Information also provided in writing. These included: Low blood counts (anemia, thrombocytopenia, neutropenia) Hair loss (alopecia) Nausea and vomiting Decreased appetite Loss of fertility Diarrhea Mouth sores Constipation Peripheral neuropathy Chemo brain/cognitive changes Fatigue Instructions on when to call your healthcare team or on-call physician immediately: Fever of 100.4 or higher, chills, any signs of infection Shortness of breath, wheezing, difficulty breathing, closing of throat, swelling of face, hives (signs of possible allergic reaction) Chest pain, fast heart beat or feelings of a different heart rhythm Swelling of an extremity with or without pain signs of stroke Instructions on when to call your healthcare team within the next 24 hours Nausea that interferes with ability to eat and unrelieved with prescribed medication Diarrhea (4-6 episodes in 24 hour period). Unusual bleeding or bruising Black or tarry stools, or blood in your stools Blood in the urine pain or burning with urination Extreme fatigue (unable to perform self-care activities) Mouth sores or sore areas in your mouth Bad headache Dizziness or lightheadedness Large weight gain over a short period of time General self-care tips while undergoing treatment discussed were as follows. Written materials were provided covering in detail and additional self care tips. Drink at least 2-3 quarts (8-10 glasses) of no-caffeinated beverages daily unless you are instructed otherwise and empty your bladder frequently Report any concerning symptoms to your healthcare team Avoid crowds and sick people, wash your hands frequently Use a soft bristled toothbrush, rinse three times a day with 1 tsp baking soda or 1 tsp salt mixed with warm water Avoid any mouthwashes or oral and skin products containing alcohol or fragrances Use electric razors to avoid cutting yourself Avoid contact sports or activities that could cause head injury or bleeding Avoid sun exposure, wear SPF 15 or higher, wear protective clothing Get plenty of rest, meter your activities Maintain good nutrition Avoid alcoholic beverages Attend your scheduled appointments and lab draws Treatment regimen reviewed and medications were discussed with attention to specific side effects and self care for the pt?s treatment regimen which includes [ABVD]. [place] was provided with literature regarding [ABVD] and common side effects. Additionally, [place] was provided with literature regarding the diagnosis of [Hodgkin lymphoma]. [place] instructed to read literature at home. Keep a list of questions which we are happy to go over at future visits. For any urgent questions please feel free to call any time. - Response to Teaching Response to Teaching: Verbalizes Understanding - Referrals Referrals: Plumbing Installer (HUMAN RESOURCES EXECUTIVE per pt request. HUMAN RESOURCES EXECUTIVE informed)
--- NOTE | 2018-03-09 11:50 | P.CHEMO_ITS ---
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 he presents today for chemotherapy counseling. The patient had consult with Dr Conner and plan is to move forward with chemotherapy in the form of ABVD Q 14 days. - General New Chemotherapy Patient: Yes Treatment Plan Reviewed: yes - Chemotherapy Counseling Chemotherapy Counseling: Chemotherapy Education: [place] Washburn Fady ALVAREZ provided written information on all topics discussed. Written materials printed from [email or web address] and [email or web address]. [place] was given an overview of cancer and mechanism of action of cancer cells, that cancer is caused by cells that are dividing rapidly, and out of control. Traditional chemotherapy works by targeting the fast dividing cells and killing them. Chemotherapy affecting healthy cells dividing quickly causes many of the side effects (hair follicles, bone marrow, mucus membranes). Overview of blood cell functions of white cells to fight infection, red cells to carry oxygen, and platelets to stop bleeding was discussed, and that when bone marrow is affected by chemo, there is a decrease in production of these cells. Home care of the patient following chemotherapy was discussed. Body fluids will be contaminated for 48 hours following treatment, and any body fluids handled by caregivers should be handled wearing gloves, surfaces need to be cleaned with soap and water, any soiled linens or clothing need to be washed separately in hot water, toilet lid should be closed when flushing, person cleaning the toilet should wear gloves. How chemotherapy is administered by the RN?s in the clinic, that orders are double checked by pharmacy and checked again by two RN?s prior to administration. Nurses wear protective gear to prevent exposure to them of the chemotherapy agents which can also cause cancer. Cancer center information discussed and written hand out provided listing on- call oncologist available weekends and after hours triage R.N. hours and infusion room guide. New patient binder given to [place], which includes clinic names, phone numbers, clinic information, calendar, cancer glossary, and list of resources. Handout on advanced directives Common side effects of chemotherapy were discussed with self care tips for prevention of complications. Information also provided in writing. These included: Low blood counts (anemia, thrombocytopenia, neutropenia) Hair loss (alopecia) Nausea and vomiting Decreased appetite Loss of fertility Diarrhea Mouth sores Constipation Peripheral neuropathy Chemo brain/cognitive changes Fatigue Instructions on when to call your healthcare team or on-call physician immediately: Fever of 100.4 or higher, chills, any signs of infection Shortness of breath, wheezing, difficulty breathing, closing of throat, swelling of face, hives (signs of possible allergic reaction) Chest pain, fast heart beat or feelings of a different heart rhythm Swelling of an extremity with or without pain signs of stroke Instructions on when to call your healthcare team within the next 24 hours Nausea that interferes with ability to eat and unrelieved with prescribed medication Diarrhea (4-6 episodes in 24 hour period). Unusual bleeding or bruising Black or tarry stools, or blood in your stools Blood in the urine pain or burning with urination Extreme fatigue (unable to perform self-care activities) Mouth sores or sore areas in your mouth Bad headache Dizziness or lightheadedness Large weight gain over a short period of time General self-care tips while undergoing treatment discussed were as follows. Written materials were provided covering in detail and additional self care tips. Drink at least 2-3 quarts (8-10 glasses) of no-caffeinated beverages daily unless you are instructed otherwise and empty your bladder frequently Report any concerning symptoms to your healthcare team Avoid crowds and sick people, wash your hands frequently Use a soft bristled toothbrush, rinse three times a day with 1 tsp baking soda or 1 tsp salt mixed with warm water Avoid any mouthwashes or oral and skin products containing alcohol or fragrances Use electric razors to avoid cutting yourself Avoid contact sports or activities that could cause head injury or bleeding Avoid sun exposure, wear SPF 15 or higher, wear protective clothing Get plenty of rest, meter your activities Maintain good nutrition Avoid alcoholic beverages Attend your scheduled appointments and lab draws Treatment regimen reviewed and medications were discussed with attention to specific side effects and self care for the pt?s treatment regimen which includes [ABVD]. [place] was provided with literature regarding [ABVD] and common side effects. Additionally, [place] was provided with literature regarding the diagnosis of [ Hodgkin lymphoma]. [place] instructed to read literature at home. Keep a list of questions which we are happy to go over at future visits. For any urgent questions please feel free to call any time. - Response to Teaching Response to Teaching: Verbalizes Understanding - Referrals Referrals: Food Processing Plant Manager (ORTHOPEDIC TECHNICIAN per pt request. ORTHOPEDIC TECHNICIAN informed)
[2018-03-11 10:05] LABS: Add Manual Diff / Slide Review NO; Basophils Percent Auto 1.5 % (0-2); Eosinophils Percent Auto 1.6 % (2-4); Hematocrit 32.5 % (41-53); Hemoglobin 10.2 g/dL (13.5-17.5); Lymphocytes Percent Auto 9.3 % (25-40); Mean Corpuscular HGB Conc 31.4 % (30-36); Mean Corpuscular Hemoglobin 23.3 PG (26-34); Monocytes Percent Auto 12.8 % (3-14); Neutrophils Absolute Auto 6100 /uL (3000-5900); Neutrophils Percent Auto 74.8 % (50-75); Platelet Count 360 X10^3/uL (150-400); Red Cell Distribution Width 17.7 % (11.6-14.8); White Blood Cell Count 8.2 X10^3/uL (4.5-11.0)
[2018-03-11 10:23] LABS: Alanine Aminotransferase 21 IU/L (21-72); Albumin 3.2 g/dL (3.5-5.0); Albumin Globulin Ratio 0.9 (1.0-2.8); Alkaline Phosphatase 93 U/L (38-126); Aspartate Aminotransferase 18 IU/L (17-59); Bilirubin Total 0.3 mg/dL (0.2-1.3); Blood Urea Nitrogen 11 mg/dL (9-20); Carbon Dioxide 30 mmol/L (22-32); Estimated Glomerular Filt Rate > 60.0 mL/min (>60); Globulin 3.6 g/dL (1.7-4.1); Glucose 89 mg/dL (70-100); HEMOLYSIS < 15 (0-50); Total Protein 6.8 g/dL (6.3-8.2); Uric Acid 2.2 mg/dL (3.5-8.5)
--- NOTE | 2018-03-11 10:28 | P.PNONC_ITS ---
PN -Subjective Interval history: He presents here today for initiation of chemotherapy with ABVD cycle 1 day 1. Clinically patient has been doing well without any new complaints. Patient actually said that the right supraclavicular matted lymph nodes are decreasing in size for unknown reason. He denies any fever or chills. No nausea and no vomiting. Patient underwent MUGA scan which showed normal left ventricular function with ejection fraction of 62.6%. Oncological History [place] Shrestha II is a 32 year old male without any past medical or surgical history. Patient reported a ?massive? weight loss of about 20 lb over maybe the past 2-3 months. In addition, patient has been losing energy and feeling tired. Patient also endorsed an early fullness after eating even though feeling hungry. He denies fever or chills. Patient reports some mild night sweats. Patient thought it might be due to thyroid problems as suggested by his friends. He was also reporting some cough especially at certain positions for example leaning forward and he was not able to lie on the right side. He was initially evaluated by [facility] on January 26, 2018. On physical examination, lymphadenopathy was noted to the right and supraclavicular region. CT soft tissue neck without contrast was obtained on February 01, 2018. The scan showed malignant appearing adenopathy bilaterally within the upper mediastinum, and the right neck inferiorly and extending into the right supraclavicular fossa; these then extends into the right axilla to a mild degree. A small degree of adenopathy is also present and the inferior aspect of the left supraclavicular fossa contiguous with the definite left- sided adenopathy present within the mediastinum. Note was made of significant compression of the lower margin of the trachea and the visualized portion of the right mainstream bronchus. February 08, 2018 CT scan of the chest abdomen and pelvis with contrast was performed. The results showed bilateral bulky neck base lymph nodes, right supraclavicular fossa, mediastinal and bilateral hilar lymphadenopathy concerning for lymphoma or metastatic disease, 1.1 cm retrocaval upper retroperitoneal lymphadenopathy concerning for lymphoma versus metastatic disease, 2 mm nonobstructing bilateral renal stones, 4 mm right middle lobe nodule and right sided trace pleural effusion chief. Patient thereafter was referred to Dr. Calvo for excisional biopsy. February 10, 2018, Dr. Calvo performed biopsy of right neck mass. The surgical pathology reported classic Hodgkin lymphoma. In the comment it says the architectural features of the lymphoma in these cervical lymph node biopsies favor a nodular sclerosis classical Hodgkin's lymphoma histologic subtype Patient underwent PET scan on March 03, 2018. The PET scan showed bilateral supraclavicular, bulky mediastinal, bilateral hilar, and right axillary lymphadenopathy consistent with lymphoma. No evidence of luis disease below the diaphragm, trace right pleural effusion and pericardial effusion, right maxillary sinusitis, and some non obstructive renal calculi bilaterally. And testing for hepatitis B, hepatitis C, H IV were all nonreactive. Omer the scan is scheduled for March 10. Patient underwent port placement on February 24, [address] Calvo. - Patient Self-Reported Symptoms SR Constitution: Weight loss/gain SR respiratory issues: Cough (in certain posture, i.e. slumped over, can sleep on the right side) SR Gastrointestinal issues: Poor or no appetite SR Hematologic issues: Swollen lymph nodes - Additional ROS All systems PM: reviewed and no additional remarkable complaints except as stated Home Medications and Allergies Home Medications Medication Instructions Recorded Confirmed Type multivitamin tablet 1 tab PO DAILY 02/09/18 03/05/18 History ondansetron 4 mg PO QID PRN #10 tab 02/10/18 03/05/18 Rx lidocaine-prilocaine See Label Instructions .ROUTE 02/24/18 03/05/18 Rx .COMPLEX #30 gram allopurinol [Zyloprim] 300 mg PO BID #60 tab 03/05/18 Rx Allergies Allergy/AdvReac Type Severity Reaction Status Date / Time No Known Drug Allergies Allergy Verified 02/26/18 08:22 Exam Vital signs: Last Vital Signs Temp 97.8 F 03/05/18 13:20 Pulse 121 H 03/05/18 13:20 Resp 19 03/05/18 13:20 BP 114/76 03/05/18 13:20 Pulse Ox 100 03/05/18 13:20 ECOG 1 Narrative: Constitutional: Well developed, thin, not in any acute respiratory distress, average body habitus, well groomed, pleasant and cooperative. Here by himself HEENT: Normocephalic atraumatic. Extraocular muscle movement intact. Pupils are round, equal and reactive to light and accommodations. Anicteric sclera. No hearing difficulty; Oral mucus membrane moist and without ulcers. Neck: Supple. A larger irregular mass noted on the right supraclavicular fossa , measuring at least 10 cm. Bx incision noted w/o erythema or swelling. Respiratory: No use of accessory muscles. Clear to auscultation, and no wheezes or rales or rubs. Cardiovascular: Regular rate and rhythm, S1 and S2 normal, no murmurs gallops or rubs. No JVD. No pitting edema of lower extremities. Abdomen: Soft, nontender, non-distended, bowel sounds normal, no palpable organomegaly, no hernia, no palpable masses. Lower extremities: No palpable pedal edema. Lymphatic: mass/lymph node of neck note (see above), no palpable lymph nodes in axillae or groins. Musculoskeletal: normal gait and station, no clubbing, no cyanosis, no pitting edema. Skin: no rashes, no ulcers, no petechiae Neurological: Awake and alert and oriented x3. CN II-XII grossly intact. No focal motor or sensory deficit. Psychiatric: Good judgment, good insight, normal affect, normal thought process , cooperative, no depression, no anxiety. Results - Labs Laboratory Last Values WBC 8.2 X10^3/uL (4.5-11.0) 03/11/18 09:44 RBC 4.40 X10^6/uL (4.5-5.9) L 03/11/18 09:44 Hgb 10.2 g/dL (13.5-17.5) L 03/11/18 09:44 Hct 32.5 % (41-53) L 03/11/18 09:44 MCV 74.0 fL (80-100) L 03/11/18 09:44 MCH 23.3 PG (26-34) L 03/11/18 09:44 MCHC 31.4 % (30-36) 03/11/18 09:44 RDW 17.7 % (11.6-14.8) H 03/11/18 09:44 Plt Count 360 X10^3/uL (150-400) 03/11/18 09:44 Neut % (Auto) 74.8 % (50-75) 03/11/18 09:44 Lymph % (Auto) 9.3 % (25-40) L 03/11/18 09:44 [place] % (Auto) 12.8 % (3-14) 03/11/18 09:44 Eos % (Auto) 1.6 % (2-4) L 03/11/18 09:44 Baso % (Auto) 1.5 % (0-2) 03/11/18 09:44 Neut # (Auto) 6100 /uL (2139-3295) H 03/11/18 09:44 ESR 102 MM/HR (0-15) H 03/03/18 12:29 Sodium 142 mmol/L (137-145) 03/03/18 12:29 Potassium 4.1 mmol/L (3.4-5.1) 03/03/18 12:29 Chloride 99 mmol/L (98-107) 03/03/18 12:29 Carbon Dioxide 30 mmol/L (22-32) 03/03/18 12:29 BUN 15 mg/dL (9-20) 03/03/18 12:29 Creatinine 0.50 mg/dL (0.66-1.25) L 03/03/18 12:29 Estimated GFR > 60.0 mL/min (>60) 03/03/18 12:29 BUN/Creatinine Ratio 30.0 (6-22) H 03/03/18 12:29 Glucose 88 mg/dL (70-100) 03/03/18 12:29 Calcium 9.0 mg/dL (8.4-10.2) 03/03/18 12:29 Total Bilirubin 0.3 mg/dL (0.2-1.3) 03/03/18 12:29 AST 37 IU/L (17-59) 03/03/18 12:29 ALT 44 IU/L (21-72) 03/03/18 12:29 Alkaline Phosphatase 153 U/L (38-126) H 03/03/18 12:29 Lactate Dehydrogenase 965 U/L (313-618) H 03/03/18 12:29 Total Protein 7.8 g/dL (6.3-8.2) 03/03/18 12:29 Albumin 3.5 g/dL (3.5-5.0) 03/03/18 12:29 Globulin 4.3 g/dL (1.7-4.1) H 03/03/18 12:29 Albumin/Globulin Ratio 0.8 (1.0-2.8) L 03/03/18 12:29 Ludf-5-Ovswsexffxmbd 2.59 mg/L (< 2.52) H 03/03/18 12:29 Hep Bs Antigen Negative s/c (NEGATIVE) 03/03/18 12:29 Hep Bs Antibody Reactive (Nonreactive) A 03/03/18 12:29 Hep B Core Total Ab Nonreactive (Nonreactive) 03/03/18 12:29 Hep B Core IgM Ab Nonreactive (Nonreactive) 03/03/18 12:29 Hepatitis C Antibody Negative s/c (NEGATIVE) 03/03/18 12:29 HIV 1&2 Antibody Negative (NEGATIVE) 03/03/18 12:29 Assessment and Plan (1) Hodgkin lymphoma, nodular sclerosis Problem details: Presented with weight loss, weakness, and right neck and supraclavicular region enlarging masses. Biopsy of right neck mass 02/10/2018: nodular sclerosis classical Hodgkin's lymphoma. CT (02/01/2018, 02/08/2018) and PET/CT (03/03/2018 ) showed the disease confined to neck, chest above the diaphragm. Thus stage IIB with unfavorable risk factors (NCCN guideline: bulky >10cm, ESR >=50, # luis sites >3, B symptoms). MUGA 03/10/2018: EF 62.6% Assessment: Patient has a stage IIB Hodgkin's lymphoma with unfavorable risk factors. Based on NCCN guidelines, my overall plan is to proceed with chemotherapy ABVD for 2 cycles followed by restaging with PET/CT. Depending on the PET Deauville response, we will try to take the path to minimize the use of bleomycin. After completion of chemotherapy, we will discuss about the need for involved field radiation therapy. Plan: 1. Ok to proceed to ABVD C1D1 today (03/11/2018) 2. Continue Allopurinol 300 mg bid 3. CBC, CMP, uric acid weekly 4. RTC MD 2 weeks for follow up visit and C1D15 treatment
[2018-03-11 10:32] LABS: Chloride 100 mmol/L (98-107); Potassium 4.2 mmol/L (3.4-5.1); Sodium 139 mmol/L (137-145)
[2018-03-11] MEDS: ACETAMINOPHEN 325 MG TABLET 650 MG PO (10:36)
[2018-03-11] MEDS: LORazepam 0.5 MG TABLET PO (10:37)
[2018-03-11] MEDS: diphenhydrAMINE 25 MG TABLET PO (10:37)
[2018-03-11] MEDS: SODIUM CHLORIDE 0.9% 100 ML 21 ML IV (10:37)
[2018-03-11] MEDS: DEXAMETHASONE 12 MG in SODIUM CHLORIDE 0.9% 50 ML 212 ML IV (10:41)
[2018-03-11 11:00] LABS: Lactate Dehydrogenase 689 U/L (313-618)
[2018-03-11] MEDS: ONDANSETRON 16 MG in SODIUM CHLORIDE 0.9% 50 ML 232 ML IV (11:05)
[2018-03-11 11:12] VITALS: BP 117/72; PULSE 106; RESP 19; TEMP 36.7; O2SAT 100
[2018-03-11] MEDS: FOSAPREPITANT 150 MG in SODIUM CHLORIDE 0.9% 150 ML 300 ML IV (11:31)
[2018-03-11] MEDS: BLEOMYCIN IV ×2 (12:29→15:47)
[2018-03-11] MEDS: SODIUM CHLORIDE 0.9% IV ×3 (12:29→15:47)
[2018-03-11] MEDS: DOXORUBICIN HCL IV (15:08)
[2018-03-11] MEDS: ISOOSMOTIC VEHICLE IV (16:05)
[2018-03-11] MEDS: VINBLASTINE IV (16:05)
[2018-03-11] MEDS: DACARBAZINE IV (16:34)
[2018-03-11] MEDS: DEXTROSE 5% IV (16:34)
--- NOTE | 2018-03-16 13:14 | ONC.NAV ---
Description: Counseling Activity: Met with patient for counseling, per his request, in the context of adjustment to diagnosis/treatment, family coping concerns, and to discuss resource/support needs. Pt resides with his mother and father, both of whom have their own health issues. He presents as nervous, and quickly became tearful in sharing his own fears and sense of isolation in coping with his cancer diagnosis and treatment side-effects. He states that his mother is overwhelmed, and is not sharing her feelings/thoughts with him about his being in cancer treatment. His father has never been a person to share feelings, and has spent most of pt's life being distant and emotionally detached. Pt shares that he has a close group of friends, however he is finding an awkwardness around what he feels is their not knowing what to do or say. 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 VIBRATOR EQUIPMENT TESTER offered teaching re: the normalcy of his reactions to his diagnosis, and how many cancer patients struggle with how much to communicate/share with family and friends, how many people don't know what to say or do to help, even when they want to. Discussed his mother's coping as her way of managing her own fears and reactions to the fear of him having cancer, and grief in watching him go through this. Discussed some communication strategies to invite conversation and sharing between them. Offered coping and emotional support in terms of processing the complexity of feelings that he is experiencing, as well as some suggestions for moving forward. Pt requested assistance with obtaining a Medical Marijuana Authorization form, which this VIBRATOR EQUIPMENT TESTER will take care of tomorrow when Dr. Conner returns to the office. Plan: F/u with pt next week during his second infusion appt to assess coping/support needs.
[2018-03-25 08:57] LABS: Hemoglobin 11.9 g/dL (13.5-17.5); Mean Corpuscular HGB Conc 32.2 % (30-36); Mean Corpuscular Hemoglobin 24.5 PG (26-34); Mean Corpuscular Volume 76.3 fL (80-100); Platelet Count 223 X10^3/uL (150-400); Red Blood Cell Count 4.85 X10^6/uL (4.5-5.9); Red Cell Distribution Width 21.5 % (11.6-14.8); White Blood Cell Count 3.4 X10^3/uL (4.5-11.0)
--- NOTE | 2018-03-25 08:57 | P.PNONC_ITS ---
PN -Subjective Interval history: He was started on ABVD cycle 1 day 1 03/11/2018. Patient said that he has noticed that the supraclavicular lymph nodes especially on the right side have decreased in size. However he is not sure whether the decrease in size of the lymph nodes are due to the chemotherapy itself or due to normal fluctuation which he has noticed in the past. Patient also reported that the cough symptoms have resolved. Previously when he was sitting in a certain position, he was having some coughing spells. He denies any fever or chills. He denies vomiting. He does have mild 3/10 nausea on the day of the chemotherapy which quickly resolved. Patient has an improved appetite. He has gained about 5 lb. Patient has good energy. He is asking if his able to get exercise. Oncological History [place] Shrestha II is a 32 year old male without any past medical or surgical history. Patient reported a ?massive? weight loss of about 20 lb over maybe the past 2-3 months. In addition, patient has been losing energy and feeling tired. Patient also endorsed an early fullness after eating even though feeling hungry. He denies fever or chills. Patient reports some mild night sweats. Patient thought it might be due to thyroid problems as suggested by his friends. He was also reporting some cough especially at certain positions for example leaning forward and he was not able to lie on the right side. He was initially evaluated by [facility] on January 26, 2018. On physical examination, lymphadenopathy was noted to the right and supraclavicular region. CT soft tissue neck without contrast was obtained on February 01, 2018. The scan showed malignant appearing adenopathy bilaterally within the upper mediastinum, and the right neck inferiorly and extending into the right supraclavicular fossa; these then extends into the right axilla to a mild degree. A small degree of adenopathy is also present and the inferior aspect of the left supraclavicular fossa contiguous with the definite left- sided adenopathy present within the mediastinum. Note was made of significant compression of the lower margin of the trachea and the visualized portion of the right mainstream bronchus. February 08, 2018 CT scan of the chest abdomen and pelvis with contrast was performed. The results showed bilateral bulky neck base lymph nodes, right supraclavicular fossa, mediastinal and bilateral hilar lymphadenopathy concerning for lymphoma or metastatic disease, 1.1 cm retrocaval upper retroperitoneal lymphadenopathy concerning for lymphoma versus metastatic disease, 2 mm nonobstructing bilateral renal stones, 4 mm right middle lobe nodule and right sided trace pleural effusion chief. Patient thereafter was referred to Dr. Calvo for excisional biopsy. February 10, 2018, Dr. Calvo performed biopsy of right neck mass. The surgical pathology reported classic Hodgkin lymphoma. In the comment it says the architectural features of the lymphoma in these cervical lymph node biopsies favor a nodular sclerosis classical Hodgkin's lymphoma histologic subtype Patient underwent PET scan on March 03, 2018. The PET scan showed bilateral supraclavicular, bulky mediastinal, bilateral hilar, and right axillary lymphadenopathy consistent with lymphoma. No evidence of luis disease below the diaphragm, trace right pleural effusion and pericardial effusion, right maxillary sinusitis, and some non obstructive renal calculi bilaterally. And testing for hepatitis B, hepatitis C, HIV were all nonreactive. Moer the scan is scheduled for March 10. Patient underwent port placement on February 24, [address] Calvo. - Patient Self-Reported Symptoms SR ears, nose, mouth, throat issues: Swollen glands (improving) SR respiratory issues: Cough (resolved. ) SR Gastrointestinal issues: Poor or no appetite (improving.) SR Hematologic issues: Swollen lymph nodes (becoming samller) - Additional ROS All systems PM: reviewed and no additional remarkable complaints except as stated Home Medications and Allergies Home Medications Medication Instructions Recorded Confirmed Type multivitamin tablet 1 tab PO DAILY 02/09/18 03/05/18 History ondansetron 4 mg PO QID PRN #10 tab 02/10/18 03/05/18 Rx lidocaine-prilocaine See Label Instructions .ROUTE 02/24/18 03/05/18 Rx .COMPLEX #30 gram allopurinol [Zyloprim] 300 mg PO BID #60 tab 03/05/18 Rx Allergies Allergy/AdvReac Type Severity Reaction Status Date / Time No Known Drug Allergies Allergy Verified 02/26/18 08:22 Exam Vital signs: Last Vital Signs Temp 98.0 F 03/11/18 11:12 Pulse 106 H 03/11/18 11:12 Resp 19 03/11/18 11:12 BP 117/72 03/11/18 11:12 Pulse Ox 100 03/11/18 11:12 ECOG 1 - Constitutional positive no acute distress, positive average body habitus, positive cooperative - Routine HEENT Exam Head: Present: normocephalic, atraumatic Eye: Present: EOMI, PERRL, normal accommodation. Absent: conjunctival icterus ENT: Present: mucous membranes moist - Routine Neck Exam Present: supple, full ROM, lymphadenopathy Comments: Right-sided matted lymph nodes enlargement have absolutely improved compared to his previous visit. no tenderness. no erythema. - Routine Chest/Breast/Axilla Exam Chest wall exam standard: Absent: tenderness, mass Axillae: Absent: lymphadenopathy, mass - Routine Respiratory Exam Present: Clear to auscultation bilaterally. Absent: wheezes - Routine Cardiovascular Exam Present: RRR, S1, S2. Absent: murmur, gallop, rubs, S3 - Routine Abdominal Exam Present: soft, normoactive bowel sounds. Absent: tenderness, distended, organomegaly - Routine Extremities Exam Absent: edema - Routine Neurological Exam Present: alert, oriented X3, CN II-XII intact, normal reflexes, normal speech. Absent: sensory deficit, motor deficit - Routine Psychiatric Exam Present: normal affect, normal thought process, cooperative, good insight, good judgment Results - Labs Laboratory Last Values WBC 3.4 X10^3/uL (4.5-11.0) L 03/25/18 08:38 RBC 4.85 X10^6/uL (4.5-5.9) 03/25/18 08:38 Hgb 11.9 g/dL (13.5-17.5) L 03/25/18 08:38 Hct 37.0 % (41-53) L 03/25/18 08:38 MCV 76.3 fL (80-100) L 03/25/18 08:38 MCH 24.5 PG (26-34) L 03/25/18 08:38 MCHC 32.2 % (30-36) 03/25/18 08:38 RDW 21.5 % (11.6-14.8) H 03/25/18 08:38 Plt Count 223 X10^3/uL (150-400) 03/25/18 08:38 Neut % (Auto) Not Reportable 03/25/18 08:38 Lymph % (Auto) Not Reportable 03/25/18 08:38 [place] % (Auto) Not Reportable 03/25/18 08:38 Eos % (Auto) Not Reportable 03/25/18 08:38 Baso % (Auto) Not Reportable 03/25/18 08:38 Neut # (Auto) 6100 /uL (7950-4226) H 03/11/18 09:44 ESR 102 MM/HR (0-15) H 03/03/18 12:29 Sodium 141 mmol/L (137-145) 03/25/18 08:38 Potassium 3.9 mmol/L (3.4-5.1) 03/25/18 08:38 Chloride 102 mmol/L (98-107) 03/25/18 08:38 Carbon Dioxide 28 mmol/L (22-32) 03/25/18 08:38 BUN 8 mg/dL (9-20) L 03/25/18 08:38 Creatinine 0.60 mg/dL (0.66-1.25) L 03/25/18 08:38 Estimated GFR > 60.0 mL/min (>60) 03/25/18 08:38 BUN/Creatinine Ratio 13.3 (6-22) 03/25/18 08:38 Glucose 84 mg/dL (70-100) 03/25/18 08:38 Uric Acid 2.1 mg/dL (3.5-8.5) L 03/25/18 08:38 Calcium 9.1 mg/dL (8.4-10.2) 03/25/18 08:38 Total Bilirubin 0.2 mg/dL (0.2-1.3) 03/25/18 08:38 AST 23 IU/L (17-59) 03/25/18 08:38 ALT 28 IU/L (21-72) 03/25/18 08:38 Alkaline Phosphatase 80 U/L (38-126) 03/25/18 08:38 Lactate Dehydrogenase 689 U/L (313-618) H 03/11/18 09:44 Total Protein 7.5 g/dL (6.3-8.2) 03/25/18 08:38 Albumin 4.0 g/dL (3.5-5.0) 03/25/18 08:38 Globulin 3.5 g/dL (1.7-4.1) 03/25/18 08:38 Albumin/Globulin Ratio 1.1 (1.0-2.8) 03/25/18 08:38 Tjyn-5-Igchauiscxmhw 2.59 mg/L (< 2.52) H 03/03/18 12:29 Hep Bs Antigen Negative s/c (NEGATIVE) 03/03/18 12:29 Hep Bs Antibody Reactive (Nonreactive) A 03/03/18 12:29 Hep B Core Total Ab Nonreactive (Nonreactive) 03/03/18 12:29 Hep B Core IgM Ab Nonreactive (Nonreactive) 03/03/18 12:29 Hepatitis C Antibody Negative s/c (NEGATIVE) 03/03/18 12:29 HIV 1&2 Antibody Negative (NEGATIVE) 03/03/18 12:29 Assessment and Plan (1) Hodgkin lymphoma, nodular sclerosis Problem details: Presented with weight loss, weakness, and right neck and supraclavicular region enlarging masses. Biopsy of right neck mass 02/10/2018: nodular sclerosis classical Hodgkin's lymphoma. CT (02/01/2018, 02/08/2018) and PET/CT (03/03/2018 ) showed the disease confined to neck, chest above the diaphragm. Thus stage IIB with unfavorable risk factors (NCCN guideline: bulky >10cm, ESR >=50, # luis sites >3, B symptoms). MUGA 03/10/2018: EF 62.6% Assessment: Patient has a stage IIB Hodgkin's lymphoma with unfavorable risk factors. Based on NCCN guidelines, my overall plan is to proceed with chemotherapy ABVD for 2 cycles followed by restaging with PET/CT. Depending on the PET Deauville response, we will try to take the path to minimize the use of bleomycin. After completion of chemotherapy, we will discuss about the need for involved field radiation therapy. ABVD started 03/11/2018. He tolerated the first treatment of the chemotherapy extremely well. Patient clinically has been feeling better. Plan: 1. Ok to proceed to ABVD C1D15 today 2. Continue Allopurinol 300 mg bid 3. RTC MD 2 weeks for follow up visit and C2D1 treatment 4. CBC, CMP, uric acid next visit 5. Ok to do exercise as tolerable
[2018-03-25 08:59] LABS: Add Manual Diff / Slide Review YES
[2018-03-25 09:06] LABS: Alanine Aminotransferase 28 IU/L (21-72); Albumin Globulin Ratio 1.1 (1.0-2.8); Alkaline Phosphatase 80 U/L (38-126); Aspartate Aminotransferase 23 IU/L (17-59); BUN Creatinine Ratio 13.3 (6-22); Bilirubin Total 0.2 mg/dL (0.2-1.3); Blood Urea Nitrogen 8 mg/dL (9-20); Calcium 9.1 mg/dL (8.4-10.2); Carbon Dioxide 28 mmol/L (22-32); Chloride 102 mmol/L (98-107); Estimated Glomerular Filt Rate > 60.0 mL/min (>60); Globulin 3.5 g/dL (1.7-4.1); Glucose 84 mg/dL (70-100); HEMOLYSIS < 15 (0-50); Potassium 3.9 mmol/L (3.4-5.1); Sodium 141 mmol/L (137-145); Total Protein 7.5 g/dL (6.3-8.2); Uric Acid 2.1 mg/dL (3.5-8.5)
[2018-03-25] MEDS: DEXAMETHASONE 12 MG in SODIUM CHLORIDE 0.9% 50 ML 212 ML IV (09:09)
[2018-03-25] MEDS: diphenhydrAMINE 25 MG TABLET PO (09:15)
[2018-03-25] MEDS: ACETAMINOPHEN 325 MG TABLET 650 MG PO (09:15)
[2018-03-25] MEDS: LORazepam 0.5 MG TABLET PO (09:15)
[2018-03-25] MEDS: SODIUM CHLORIDE 0.9% 100 ML 21 ML IV (09:16)
[2018-03-25 09:45] LABS: Neutrophils Absolute Manual 1496 /uL (3000-5900); Total Cells Counted 100
[2018-03-25] MEDS: ONDANSETRON 16 MG in SODIUM CHLORIDE 0.9% 50 ML 232 ML IV (09:45)
[2018-03-25 09:48] LABS: Anisocytosis 2+; Hypochromasia 1+; Microcytosis 1+
[2018-03-25 10:03] VITALS: BP 120/81; PULSE 77; RESP 18; TEMP 36.7; O2SAT 100
[2018-03-25] MEDS: FOSAPREPITANT 150 MG in SODIUM CHLORIDE 0.9% 150 ML 300 ML IV (10:07)
[2018-03-25] MEDS: DOXORUBICIN HCL IV (10:50)
[2018-03-25] MEDS: SODIUM CHLORIDE 0.9% IV ×2 (10:50→11:50)
[2018-03-25] MEDS: BLEOMYCIN IV (11:50)
[2018-03-25] MEDS: VINBLASTINE IV (12:29)
[2018-03-25] MEDS: ISOOSMOTIC VEHICLE IV (12:29)
[2018-03-25] MEDS: DACARBAZINE IV (13:07)
[2018-03-25] MEDS: DEXTROSE 5% IV (13:07)
--- NOTE | 2018-04-02 12:51 | ONC.NAV ---
Description: Resources Activity: Returned pt's call re: wanting assistance with finding a counselor for day to day stuff. Provided pt the name and number of a counselor here in [place] that takes Medicaid. Requested for pt to call me back should this counselor not work out, and I will provide additional referrals.
[2018-04-08 09:16] LABS: Add Manual Diff / Slide Review NO; Basophils Percent Auto 4.4 % (0-2); Hematocrit 38.6 % (41-53); Hemoglobin 12.8 g/dL (13.5-17.5); Lymphocytes Percent Auto 37.6 % (25-40); Mean Corpuscular Hemoglobin 25.7 PG (26-34); Mean Corpuscular Volume 77.9 fL (80-100); Monocytes Percent Auto 13.3 % (3-14); Neutrophils Absolute Auto 1100 /uL (3000-5900); Neutrophils Percent Auto 40.7 % (50-75); Platelet Count 222 X10^3/uL (150-400); Red Blood Cell Count 4.96 X10^6/uL (4.5-5.9); Red Cell Distribution Width 23.8 % (11.6-14.8); White Blood Cell Count 2.8 X10^3/uL (4.5-11.0)
--- NOTE | 2018-04-08 09:17 | ONC.PN ---
PN -Subjective Interval history: 32-year-old male with newly diagnosed Hodgkin's lymphoma stage IIB. He was started on ABVD cycle 1 day 1 on 03/11/2018. He presents here today for cycle 2 day 1 treatment. Patient said that he has been feeling a whole lot better. He has better energy bed appetite. His weight continued to to increase. He denies any fever or chills. He denies any night sweats. He denies any shortness of breath or chest pain. He denies coughing symptoms. He denies any abdominal pain diarrhea or constipation. The right supraclavicular lymph nodes seem to be stable during the last 2 weeks. Nontender. However he said probably it is is still shrinking. Oncological History [place] Shrestha II is a 32 year old male without any past medical or surgical history. Patient reported a ?massive? weight loss of about 20 lb over maybe the past 2-3 months. In addition, patient has been losing energy and feeling tired. Patient also endorsed an early fullness after eating even though feeling hungry. He denies fever or chills. Patient reports some mild night sweats. Patient thought it might be due to thyroid problems as suggested by his friends. He was also reporting some cough especially at certain positions for example leaning forward and he was not able to lie on the right side. He was initially evaluated by [facility] on January 26, 2018. On physical examination, lymphadenopathy was noted to the right and supraclavicular region. CT soft tissue neck without contrast was obtained on February 01, 2018. The scan showed malignant appearing adenopathy bilaterally within the upper mediastinum, and the right neck inferiorly and extending into the right supraclavicular fossa; these then extends into the right axilla to a mild degree. A small degree of adenopathy is also present and the inferior aspect of the left supraclavicular fossa contiguous with the definite left-sided adenopathy present within the mediastinum. Note was made of significant compression of the lower margin of the trachea and the visualized portion of the right mainstream bronchus. February 08, 2018 CT scan of the chest abdomen and pelvis with contrast was performed. The results showed bilateral bulky neck base lymph nodes, right supraclavicular fossa, mediastinal and bilateral hilar lymphadenopathy concerning for lymphoma or metastatic disease, 1.1 cm retrocaval upper retroperitoneal lymphadenopathy concerning for lymphoma versus metastatic disease, 2 mm nonobstructing bilateral renal stones, 4 mm right middle lobe nodule and right sided trace pleural effusion chief. Patient thereafter was referred to Dr. Calvo for excisional biopsy. February 10, 2018, Dr. Calvo performed biopsy of right neck mass. The surgical pathology reported classic Hodgkin lymphoma. In the comment it says the architectural features of the lymphoma in these cervical lymph node biopsies favor a nodular sclerosis classical Hodgkin's lymphoma histologic subtype Patient underwent PET scan on March 03, 2018. The PET scan showed bilateral supraclavicular, bulky mediastinal, bilateral hilar, and right axillary lymphadenopathy consistent with lymphoma. No evidence of luis disease below the diaphragm, trace right pleural effusion and pericardial effusion, right maxillary sinusitis, and some non obstructive renal calculi bilaterally. And testing for hepatitis B, hepatitis C, HIV were all nonreactive. Omer the scan is scheduled for March 10. Patient underwent port placement on February 24, [address] Calvo. - Patient Self-Reported Symptoms SR Constitution: Weight loss/gain (weight gain.) SR ears, nose, mouth, throat issues: Swollen glands (shrinking right supraclavicular fossa) SR Gastrointestinal issues: Poor or no appetite (Almost normal appetite now.) SR Hematologic issues: Swollen lymph nodes (becoming samller) - Additional ROS All systems PM: reviewed and no additional remarkable complaints except as stated Home Medications and Allergies Home Medications Medication Instructions Recorded Confirmed Type multivitamin tablet 1 tab PO DAILY 02/09/18 03/05/18 History ondansetron 4 mg PO QID PRN #10 tab 02/10/18 03/05/18 Rx lidocaine-prilocaine See Label Instructions .ROUTE 02/24/18 03/05/18 Rx .COMPLEX #30 gram allopurinol [Zyloprim] 300 mg PO BID #60 tab 03/05/18 Rx Allergies Allergy/AdvReac Type Severity Reaction Status Date / Time No Known Drug Allergies Allergy Verified 02/26/18 08:22 Exam Vital signs: Last Vital Signs Temp 98.3 F 04/08/18 09:21 Pulse 69 04/08/18 09:21 Resp 18 04/08/18 09:21 BP 124/77 04/08/18 09:21 Pulse Ox 99 04/08/18 09:21 ECOG 1 Narrative: Constitutional: WDWN, NAD, average body habitus, well groomed, pleasant and cooperative. HEENT: NCAT, EOMI, PERRLA, anicteric sclera, no hearing difficulty; Oral mucus membrane moist and without ulcers. Neck: Supple, symmetrical, and tracheal midline; No palpable thyromegaly. There is a group of lymph nodes measuring about 1 cm in size each palpable in the right supraclavicular fossa. Respiratory: No use of accessory muscles. Clear to auscultation, and no wheezes or rales or rubs. Cardiovascular: Regular rate and rhythm, S1 and S2 normal, no murmurs gallops or rubs. No JVD. No pitting edema of lower extremities. Abdomen: Soft, nontender, non-distended, bowel sounds normal, no palpable organomegaly, no hernia, no palpable masses. Lower extremities: No palpable pedal edema. Lymphatic: no palpable lymph nodes in the neck, axillae, or groins. Musculoskeletal: normal gait and station, no clubbing, no cyanosis, no pitting edema. Skin: no rashes, no ulcers, no petechiae Neurological: Awake and alert and oriented x3. CN II-XII grossly intact. No focal motor or sensory deficit. Psychiatric: Good judgment, good insight, normal affect, normal thought process, cooperative, no depression, no anxiety. Results - Labs Laboratory Last Values WBC 2.8 X10^3/uL (4.5-11.0) L 04/08/18 09:00 RBC 4.96 X10^6/uL (4.5-5.9) 04/08/18 09:00 Hgb 12.8 g/dL (13.5-17.5) L 04/08/18 09:00 Hct 38.6 % (41-53) L 04/08/18 09:00 MCV 77.9 fL (80-100) L 04/08/18 09:00 MCH 25.7 PG (26-34) L 04/08/18 09:00 MCHC 33.0 % (30-36) 04/08/18 09:00 RDW 23.8 % (11.6-14.8) H 04/08/18 09:00 Plt Count 222 X10^3/uL (150-400) 04/08/18 09:00 Neut % (Auto) 40.7 % (50-75) L 04/08/18 09:00 Lymph % (Auto) 37.6 % (25-40) 04/08/18 09:00 [place] % (Auto) 13.3 % (3-14) 04/08/18 09:00 Eos % (Auto) 4.0 % (2-4) 04/08/18 09:00 Baso % (Auto) 4.4 % (0-2) H 04/08/18 09:00 Neut # (Auto) 1100 /uL (3457-8745) L 04/08/18 09:00 Total Counted 100 03/25/18 08:38 Seg Neutrophils % 43.0 % (38-70) 03/25/18 08:38 Band Neutrophils % 1.0 % (3-7) L 03/25/18 08:38 Lymphocytes % (Manual) 32.0 % (25-45) 03/25/18 08:38 Atypical Lymphs % 2.0 % (-0) H 03/25/18 08:38 Monocytes % (Manual) 12.0 % (2-11) H 03/25/18 08:38 Eosinophils % (Manual) 7.0 % (2-4) H 03/25/18 08:38 Basophils % (Manual) 3.0 % (0-1) H 03/25/18 08:38 Neutrophils # (Manual) 1496 /uL (3243-5653) L 03/25/18 08:38 RBC Morphology See below 03/25/18 08:38 Hypochromasia 1+ H 03/25/18 08:38 Anisocytosis 2+ H 03/25/18 08:38 Microcytosis 1+ H 03/25/18 08:38 ESR 102 MM/HR (0-15) H 03/03/18 12:29 Sodium 141 mmol/L (137-145) 03/25/18 08:38 Potassium 3.9 mmol/L (3.4-5.1) 03/25/18 08:38 Chloride 102 mmol/L (98-107) 03/25/18 08:38 Carbon Dioxide 28 mmol/L (22-32) 03/25/18 08:38 BUN 8 mg/dL (9-20) L 03/25/18 08:38 Creatinine 0.60 mg/dL (0.66-1.25) L 03/25/18 08:38 Estimated GFR > 60.0 mL/min (>60) 03/25/18 08:38 BUN/Creatinine Ratio 13.3 (6-22) 03/25/18 08:38 Glucose 84 mg/dL (70-100) 03/25/18 08:38 Uric Acid 2.1 mg/dL (3.5-8.5) L 03/25/18 08:38 Calcium 9.1 mg/dL (8.4-10.2) 03/25/18 08:38 Total Bilirubin 0.2 mg/dL (0.2-1.3) 03/25/18 08:38 AST 23 IU/L (17-59) 03/25/18 08:38 ALT 28 IU/L (21-72) 03/25/18 08:38 Alkaline Phosphatase 80 U/L (38-126) 03/25/18 08:38 Lactate Dehydrogenase 689 U/L (313-618) H 03/11/18 09:44 Total Protein 7.5 g/dL (6.3-8.2) 03/25/18 08:38 Albumin 4.0 g/dL (3.5-5.0) 03/25/18 08:38 Globulin 3.5 g/dL (1.7-4.1) 03/25/18 08:38 Albumin/Globulin Ratio 1.1 (1.0-2.8) 03/25/18 08:38 Fbui-2-Foruvcfsapckd 2.59 mg/L (< 2.52) H 03/03/18 12:29 Hep Bs Antigen Negative s/c (NEGATIVE) 03/03/18 12:29 Hep Bs Antibody Reactive (Nonreactive) A 03/03/18 12:29 Hep B Core Total Ab Nonreactive (Nonreactive) 03/03/18 12:29 Hep B Core IgM Ab Nonreactive (Nonreactive) 03/03/18 12:29 Hepatitis C Antibody Negative s/c (NEGATIVE) 03/03/18 12:29 HIV 1&2 Antibody Negative (NEGATIVE) 03/03/18 12:29 Assessment and Plan (1) Hodgkin lymphoma, nodular sclerosis Problem details: Presented with weight loss, weakness, and right neck and supraclavicular region enlarging masses. Biopsy of right neck mass 02/10/2018: nodular sclerosis classical Hodgkin's lymphoma. CT (02/01/2018, 02/08/2018) and PET/CT (03/03/2018) showed the disease confined to neck, chest above the diaphragm. Thus stage IIB with unfavorable risk factors (NCCN guideline: bulky >10cm, ESR >=50, #luis sites >3, B symptoms). MUGA 03/10/2018: EF 62.6% Assessment: Patient has a stage IIB Hodgkin's lymphoma with unfavorable risk factors. Based on NCCN guidelines, my overall plan was to proceed with chemotherapy ABVD for 2 cycles followed by restaging with PET/CT. Depending on the PET Deauville response, we will try to take the path to minimize the use of bleomycin. After completion of chemotherapy, we will discuss about the need for involved field radiation therapy. ABVD started 03/11/2018. He tolerated the first treatment of the chemotherapy extremely well. Patient clinically has been feeling better. Plan: 1. Ok to proceed to ABVD C2D1 today 2. Continue Allopurinol 300 mg bid 3. RTC MD 2 weeks for follow up visit and C2D15 treatment 4. CBC, CMP, uric acid next visit 5. Ok to do exercise as tolerable
[2018-04-08 09:21] VITALS: BP 124/77; PULSE 69; RESP 18; TEMP 36.8; O2SAT 99
[2018-04-08 09:24] LABS: Alanine Aminotransferase 23 IU/L (21-72); Albumin 4.3 g/dL (3.5-5.0); Albumin Globulin Ratio 1.4 (1.0-2.8); Alkaline Phosphatase 72 U/L (38-126); Aspartate Aminotransferase 22 IU/L (17-59); BUN Creatinine Ratio 18.3 (6-22); Bilirubin Total 0.3 mg/dL (0.2-1.3); Blood Urea Nitrogen 11 mg/dL (9-20); Calcium 9.2 mg/dL (8.4-10.2); Carbon Dioxide 28 mmol/L (22-32); Chloride 102 mmol/L (98-107); Estimated Glomerular Filt Rate > 60.0 mL/min (>60); Glucose 86 mg/dL (70-100); HEMOLYSIS 17 (0-50); Potassium 4.1 mmol/L (3.4-5.1); Sodium 143 mmol/L (137-145); Total Protein 7.3 g/dL (6.3-8.2)
[2018-04-08 09:34] LABS: Anisocytosis 2+; Hypochromasia 1+
[2018-04-08 09:50] LABS: Uric Acid 1.7 mg/dL (3.5-8.5)
[2018-04-08] MEDS: DEXAMETHASONE 12 MG in SODIUM CHLORIDE 0.9% 50 ML 212 ML IV (09:56)
[2018-04-08] MEDS: ACETAMINOPHEN 325 MG TABLET 650 MG PO (10:06)
[2018-04-08] MEDS: LORazepam 0.5 MG TABLET PO (10:06)
[2018-04-08] MEDS: diphenhydrAMINE 25 MG TABLET PO (10:06)
[2018-04-08] MEDS: ONDANSETRON 16 MG in SODIUM CHLORIDE 0.9% 50 ML 232 ML IV (10:21)
[2018-04-08] MEDS: SODIUM CHLORIDE 0.9% 100 ML 21 ML IV (10:21)
[2018-04-08] MEDS: FOSAPREPITANT 150 MG in SODIUM CHLORIDE 0.9% 150 ML 300 ML IV (10:55)
[2018-04-08] MEDS: DOXORUBICIN HCL IV (11:48)
[2018-04-08] MEDS: SODIUM CHLORIDE 0.9% IV ×2 (11:48→12:32)
[2018-04-08] MEDS: BLEOMYCIN IV (12:32)
[2018-04-08] MEDS: VINBLASTINE IV (12:56)
[2018-04-08] MEDS: ISOOSMOTIC VEHICLE IV (12:56)
[2018-04-08] MEDS: DEXTROSE 5% IV (13:32)
[2018-04-08] MEDS: DACARBAZINE IV (13:32)
--- NOTE | 2018-04-12 14:41 | PC.NURSE ---
Addendum entered by Airam Nix R.N. 04/13/18 12:40: Dr Conner suggest trying an over the counter antacid. If pt has fever/chills he needs to call us or go to ER. This information was communicated to pt. Verbalized understanding. Original Note: Pt called to report that he received treatment last and experienced some new abdominal pain that started this weekend on Thu, Thursday and today (to a lesser degree today). States its upper abdomen just above his umbilicus. Describes it as a dull ache and rates it currently as a 3/10 on the pain scale. States pain got up as high as a 7 on Thursday. States that it's intermittent and notices that he has it after he eats. Denies nausea. States last bowel movement was last night. [place] constipated so took laxative. Describes last bowel movement as not quite diarrhea but definitely looser than normal. Denies fever or chills associated with the pain. Will report to Dr Conner and call pt back with his input. Pt states the only medication he is currently taking is allopurinol.
--- NOTE | 2018-04-16 17:00 | PC.NURSE ---
Addendum entered by Airam Nix R.N. 05/10/18 10:25: Pt called to request a refill on his alprazolam 0.25 mg tablets. He states Dr Conner told him he can take as many as 3-4 tablets to = 1 mg at a time. He states he has been taking 2 0.25 mg tabs but this hasn't been effective. He'd like to go up to 3-4 tablets at a time. Will check with Dr Conner to see if there is a higher dosage tablet of alprazolam that he can prescribe. Will call pt back once script sent in to let him know if dosage changed. Original Note: Pt called, tearfully stating that he's feeling anxious and depressed and can't sleep. He is in [place] right now for the holidays. Asked if he was feeling like he wanted to harm himself and he denied having these thoughts. Stated I'm just feeling anxious and depressed, but not suicidal. Spoke with Dr Conner about this and per his orders, called in alprazolam 0.25 mg PO Q 8 hrs prn anxiety #30 tablets. Pt has appt with Yue on 04/22 with labs and treatment. Discussed with TJ that maybe he can talk with Yue about feeling depressed and maybe she can prescribe something for him. He was agreeable to this. Note will be placed in Yue's box.
[2018-04-22 09:24] LABS: Add Manual Diff / Slide Review NO; Eosinophils Percent Auto 1.8 % (2-4); Hematocrit 41.3 % (41-53); Hemoglobin 13.9 g/dL (13.5-17.5); Lymphocytes Percent Auto 31.8 % (25-40); Mean Corpuscular HGB Conc 33.7 % (30-36); Mean Corpuscular Hemoglobin 26.7 PG (26-34); Mean Corpuscular Volume 79.2 fL (80-100); Monocytes Percent Auto 13.2 % (3-14); Neutrophils Absolute Auto 1600 /uL (1500-7000); Neutrophils Percent Auto 52.2 % (50-75); Platelet Count 223 X10^3/uL (150-400); Red Blood Cell Count 5.22 X10^6/uL (4.5-5.9); Red Cell Distribution Width 23.7 % (11.6-14.8)
[2018-04-22 09:34] LABS: Alanine Aminotransferase 25 IU/L (21-72); Albumin 4.5 g/dL (3.5-5.0); Albumin Globulin Ratio 1.5 (1.0-2.8); Alkaline Phosphatase 66 U/L (38-126); Aspartate Aminotransferase 22 IU/L (17-59); Bilirubin Total 0.2 mg/dL (0.2-1.3); Blood Urea Nitrogen 12 mg/dL (9-20); Calcium 9.3 mg/dL (8.4-10.2); Carbon Dioxide 29 mmol/L (22-32); Chloride 102 mmol/L (98-107); Estimated Glomerular Filt Rate > 60.0 mL/min (>60); Globulin 3.1 g/dL (1.7-4.1); Glucose 83 mg/dL (70-100); HEMOLYSIS < 15 (0-50); Potassium 4.3 mmol/L (3.4-5.1); Sodium 143 mmol/L (137-145); Total Protein 7.6 g/dL (6.3-8.2); Uric Acid 1.5 mg/dL (3.5-8.5)
[2018-04-22 09:36] VITALS: BP 113/88; PULSE 82; RESP 18; TEMP 36.6; O2SAT 99
[2018-04-22 09:43] LABS: Anisocytosis 3+; Hypochromasia 1+
--- NOTE | 2018-04-22 10:14 | ONC.APRN.PN ---
PN -Subjective Interval history: 32-year-old male with newly diagnosed Hodgkin's lymphoma stage IIB. He was started on ABVD cycle 1 day 1 on 03/11/2018. He presents here today for cycle 2 day 15 treatment. Patient reports he had a ?anxiety attack? for which he was evaluated at [facility]. He was prescribed seroquel to take at night for sleep. Pt reports this has not been effective. he also has tried xanax 0.25 also with no improvement in symptoms. He does report at times feeling anxious also reports at times feeling depressed however he states at this point this all seems most related to insomnia. Patient states for the last couple of weeks he has only been getting 1-4 hours of sleep each night. He feels if he could get some good sleep he could better manage his mood. Otherwise feeling well. No cough, fever, chills. No new lumps or bumps he does think the supraclavicular mass continues to shrink. No new pain. Very mild intermittent nausea not affecting his ability to eat. Weight is stable. Activity tolerance is stable. No issue with bladder or bowels. No unexplained bleeding or bruising. he is seing a counselor in [place], he has also met with our THORACIC MEDICINE PHYSICIAN Carlee Simpson. Oncological History [place] Shrestha II is a 32 year old male without any past medical or surgical history. Patient reported a ?massive? weight loss of about 20 lb over maybe the past 2-3 months. In addition, patient has been losing energy and feeling tired. Patient also endorsed an early fullness after eating even though feeling hungry. He denies fever or chills. Patient reports some mild night sweats. Patient thought it might be due to thyroid problems as suggested by his friends. He was also reporting some cough especially at certain positions for example leaning forward and he was not able to lie on the right side. He was initially evaluated by [facility] on January 26, 2018. On physical examination, lymphadenopathy was noted to the right and supraclavicular region. CT soft tissue neck without contrast was obtained on February 01, 2018. The scan showed malignant appearing adenopathy bilaterally within the upper mediastinum, and the right neck inferiorly and extending into the right supraclavicular fossa; these then extends into the right axilla to a mild degree. A small degree of adenopathy is also present and the inferior aspect of the left supraclavicular fossa contiguous with the definite left-sided adenopathy present within the mediastinum. Note was made of significant compression of the lower margin of the trachea and the visualized portion of the right mainstream bronchus. February 08, 2018 CT scan of the chest abdomen and pelvis with contrast was performed. The results showed bilateral bulky neck base lymph nodes, right supraclavicular fossa, mediastinal and bilateral hilar lymphadenopathy concerning for lymphoma or metastatic disease, 1.1 cm retrocaval upper retroperitoneal lymphadenopathy concerning for lymphoma versus metastatic disease, 2 mm nonobstructing bilateral renal stones, 4 mm right middle lobe nodule and right sided trace pleural effusion chief. Patient thereafter was referred to Dr. Calvo for excisional biopsy. February 10, 2018, Dr. Calvo performed biopsy of right neck mass. The surgical pathology reported classic Hodgkin lymphoma. In the comment it says the architectural features of the lymphoma in these cervical lymph node biopsies favor a nodular sclerosis classical Hodgkin's lymphoma histologic subtype Patient underwent PET scan on March 03, 2018. The PET scan showed bilateral supraclavicular, bulky mediastinal, bilateral hilar, and right axillary lymphadenopathy consistent with lymphoma. No evidence of luis disease below the diaphragm, trace right pleural effusion and pericardial effusion, right maxillary sinusitis, and some non obstructive renal calculi bilaterally. And testing for hepatitis B, hepatitis C, HIV were all nonreactive. Omer the scan is scheduled for March 10. Patient underwent port placement on February 24, [address] Calvo. - Patient Self-Reported Symptoms SR Constitution: Weight loss/gain (weight gain.) SR ears, nose, mouth, throat issues: Swollen glands (shrinking right supraclavicular fossa) SR respiratory issues: Cough (resolved. ) SR Gastrointestinal issues: Poor or no appetite (Almost normal appetite now.) SR Hematologic issues: Swollen lymph nodes (becoming samller) Home Medications and Allergies Home Medications Medication Instructions Recorded Confirmed Type multivitamin tablet 1 tab PO DAILY 02/09/18 03/05/18 History ondansetron 4 mg PO QID PRN #10 tab 02/10/18 03/05/18 Rx lidocaine-prilocaine See Label Instructions .ROUTE 02/24/18 03/05/18 Rx .COMPLEX #30 gram allopurinol [Zyloprim] 300 mg PO BID #60 tab 03/05/18 04/08/18 Rx lorazepam [Ativan] 1 mg PO BEDTIME PRN #60 tab 04/22/18 Rx Allergies Allergy/AdvReac Type Severity Reaction Status Date / Time No Known Drug Allergies Allergy Verified 02/26/18 08:22 Exam - Constitutional positive no acute distress, positive thin - Routine HEENT Exam Eye: Present: conjunctivae pink. Absent: conjunctival icterus, scleral injection ENT: Present: mucous membranes moist, oropharynx clear - Routine Neck Exam Present: supple. Absent: lymphadenopathy - Routine Chest/Breast/Axilla Exam Axillae: Absent: lymphadenopathy, mass, tenderness - Routine Respiratory Exam Present: Clear to auscultation bilaterally. Absent: rales, rhonchi, wheezes - Routine Cardiovascular Exam Present: RRR, S1, S2. Absent: murmur, gallop, rubs, JVD - Routine Abdominal Exam Present: soft, normoactive bowel sounds. Absent: tenderness, distended, organomegaly - Routine Extremities Exam Absent: edema, calf tenderness - Routine Skin Exam Present: intact, normal turgor. Absent: petechiae, rash - Routine Neurological Exam Present: alert, oriented X3 - Routine Psychiatric Exam Present: normal affect. Absent: suicidal ideation, good insight, good judgment, depressed, anxious, agitated Results - Labs Laboratory Last Values WBC 3.0 X10^3/uL (4.5-11.0) L 04/22/18 09:07 RBC 5.22 X10^6/uL (4.5-5.9) 04/22/18 09:07 Hgb 13.9 g/dL (13.5-17.5) 04/22/18 09:07 Hct 41.3 % (41-53) 04/22/18 09:07 MCV 79.2 fL (80-100) L 04/22/18 09:07 MCH 26.7 PG (26-34) 04/22/18 09:07 MCHC 33.7 % (30-36) 04/22/18 09:07 RDW 23.7 % (11.6-14.8) H 04/22/18 09:07 Plt Count 223 X10^3/uL (150-400) 04/22/18 09:07 Neut % (Auto) 52.2 % (50-75) 04/22/18 09:07 Lymph % (Auto) 31.8 % (25-40) 04/22/18 09:07 [place] % (Auto) 13.2 % (3-14) 04/22/18 09:07 Eos % (Auto) 1.8 % (2-4) L 04/22/18 09:07 Baso % (Auto) 1.0 % (0-2) 04/22/18 09:07 Neut # (Auto) 1600 /uL (3117-1432) 04/22/18 09:07 Total Counted 100 03/25/18 08:38 Seg Neutrophils % 43.0 % (38-70) 03/25/18 08:38 Band Neutrophils % 1.0 % (3-7) L 03/25/18 08:38 Lymphocytes % (Manual) 32.0 % (25-45) 03/25/18 08:38 Atypical Lymphs % 2.0 % (-0) H 03/25/18 08:38 Monocytes % (Manual) 12.0 % (2-11) H 03/25/18 08:38 Eosinophils % (Manual) 7.0 % (2-4) H 03/25/18 08:38 Basophils % (Manual) 3.0 % (0-1) H 03/25/18 08:38 Neutrophils # (Manual) 1496 /uL (4044-4555) L 03/25/18 08:38 RBC Morphology Not Reportable 04/22/18 09:07 Hypochromasia 1+ H 04/22/18 09:07 Anisocytosis 3+ H 04/22/18 09:07 Microcytosis 1+ H 03/25/18 08:38 ESR 102 MM/HR (0-15) H 03/03/18 12:29 Sodium 143 mmol/L (137-145) 04/22/18 09:07 Potassium 4.3 mmol/L (3.4-5.1) 04/22/18 09:07 Chloride 102 mmol/L (98-107) 04/22/18 09:07 Carbon Dioxide 29 mmol/L (22-32) 04/22/18 09:07 BUN 12 mg/dL (9-20) 04/22/18 09:07 Creatinine 0.60 mg/dL (0.66-1.25) L 04/22/18 09:07 Estimated GFR > 60.0 mL/min (>60) 04/22/18 09:07 BUN/Creatinine Ratio 20.0 (6-22) 04/22/18 09:07 Glucose 83 mg/dL (70-100) 04/22/18 09:07 Uric Acid 1.5 mg/dL (3.5-8.5) L 04/22/18 09:07 Calcium 9.3 mg/dL (8.4-10.2) 04/22/18 09:07 Total Bilirubin 0.2 mg/dL (0.2-1.3) 04/22/18 09:07 AST 22 IU/L (17-59) 04/22/18 09:07 ALT 25 IU/L (21-72) 04/22/18 09:07 Alkaline Phosphatase 66 U/L (38-126) 04/22/18 09:07 Lactate Dehydrogenase 689 U/L (313-618) H 03/11/18 09:44 Total Protein 7.6 g/dL (6.3-8.2) 04/22/18 09:07 Albumin 4.5 g/dL (3.5-5.0) 04/22/18 09:07 Globulin 3.1 g/dL (1.7-4.1) 04/22/18 09:07 Albumin/Globulin Ratio 1.5 (1.0-2.8) 04/22/18 09:07 Gawu-8-Lhalrpeeevoss 2.59 mg/L (< 2.52) H 03/03/18 12:29 Hep Bs Antigen Negative s/c (NEGATIVE) 03/03/18 12:29 Hep Bs Antibody Reactive (Nonreactive) A 03/03/18 12:29 Hep B Core Total Ab Nonreactive (Nonreactive) 03/03/18 12:29 Hep B Core IgM Ab Nonreactive (Nonreactive) 03/03/18 12:29 Hepatitis C Antibody Negative s/c (NEGATIVE) 03/03/18 12:29 HIV 1&2 Antibody Negative (NEGATIVE) 03/03/18 12:29 Assessment and Plan (1) Hodgkin lymphoma, nodular sclerosis Problem details: Presented with weight loss, weakness, and right neck and supraclavicular region enlarging masses. Biopsy of right neck mass 02/10/2018: nodular sclerosis classical Hodgkin's lymphoma. CT (02/01/2018, 02/08/2018) and PET/CT (03/03/2018) showed the disease confined to neck, chest above the diaphragm. Thus stage IIB with unfavorable risk factors (NCCN guideline: bulky >10cm, ESR >=50, #luis sites >3, B symptoms). MUGA 03/10/2018: EF 62.6% Assessment: Patient has a stage IIB Hodgkin's lymphoma with unfavorable risk factors. Plan per Dr Conner was to proceed with chemotherapy ABVD for 2 cycles followed by restaging with PET/CT. Depending on the PET Deauville response, we will try to take the path to minimize the use of bleomycin. After completion of chemotherapy, we will discuss about the need for involved field radiation therapy. PET/CT scheduled for Apr 28 2018. CBC, CMP largely unremarkable today. White count is a bit low at 3.0 however ANC is a are within normal limits at 4:00 p.m.. CMP unremarkable aside from a low uric acid at 1.5. Renal function is completely normal. Additionally, patient has no clinical manifestations of PRES such as headache, altered consciousness, vision changes, seizures. ABVD started 03/11/2018. Plan: 1. Ok to proceed to ABVD [id number] today 2. Continue Allopurinol 300 mg bid 3. RTC MD 2 weeks for follow up visit and C3 D1 treatment 4. CBC, CMP, uric acid next visit 5. Ok to do exercise as tolerable (2) Depression Current visit: Yes Status: Acute with associated anxiety, pt was evaluated in the ER pt feels this is strongly related to insomnia. At this point in time after discussing with the pt he has elected to treat insomnia which he feels will help his mood. I agree with this aproach. (3) Insomnia Current visit: Yes Status: Acute No improvement with Seroquel. Patient has not been able to get more than 1-4 hours of sleep the last few weeks. After discussing with the patient I will prescribe lorazepam 1 mg HS. If 1 mg not affective okay to take 2 mg the next night. If 2 mg not affective patient is to call the clinic for further evaluation. Expected outcome is that patient gets at least 6 hr of quality sleep. Cont with counseling.
[2018-04-22] MEDS: LORazepam 0.5 MG TABLET PO (11:08)
[2018-04-22] MEDS: ACETAMINOPHEN 325 MG TABLET 650 MG PO (11:08)
[2018-04-22] MEDS: diphenhydrAMINE 25 MG TABLET PO (11:08)
[2018-04-22] MEDS: DEXAMETHASONE 12 MG in SODIUM CHLORIDE 0.9% 50 ML 212 ML IV (11:24)
[2018-04-22] MEDS: ONDANSETRON 16 MG in SODIUM CHLORIDE 0.9% 50 ML 232 ML IV (11:47)
[2018-04-22] MEDS: FOSAPREPITANT 150 MG in SODIUM CHLORIDE 0.9% 150 ML 300 ML IV (12:17)
[2018-04-22] MEDS: DOXORUBICIN HCL IV (13:01)
[2018-04-22] MEDS: SODIUM CHLORIDE 0.9% IV ×2 (13:01→13:42)
[2018-04-22] MEDS: BLEOMYCIN IV (13:42)
[2018-04-22] MEDS: VINBLASTINE IV (14:02)
[2018-04-22] MEDS: ISOOSMOTIC VEHICLE IV (14:02)
[2018-04-22] MEDS: DACARBAZINE IV (14:30)
[2018-04-22] MEDS: SODIUM CHLORIDE 0.9% 100 ML 21 ML IV (14:30)
[2018-04-22] MEDS: DEXTROSE 5% IV (14:30)
[2018-05-06 09:38] LABS: Alanine Aminotransferase 21 IU/L (21-72); Albumin 4.4 g/dL (3.5-5.0); Albumin Globulin Ratio 1.5 (1.0-2.8); Alkaline Phosphatase 61 U/L (38-126); Aspartate Aminotransferase 20 IU/L (17-59); BUN Creatinine Ratio 17.1 (6-22); Bilirubin Total 0.3 mg/dL (0.2-1.3); Blood Urea Nitrogen 12 mg/dL (9-20); Calcium 9.2 mg/dL (8.4-10.2); Carbon Dioxide 27 mmol/L (22-32); Chloride 102 mmol/L (98-107); Estimated Glomerular Filt Rate > 60.0 mL/min (>60); Glucose 120 mg/dL (70-100); HEMOLYSIS < 15 (0-50); Potassium 3.9 mmol/L (3.4-5.1); Sodium 139 mmol/L (137-145); Total Protein 7.4 g/dL (6.3-8.2)
[2018-05-06 09:42] VITALS: BP 115/70; PULSE 87; RESP 18; TEMP 36.8; O2SAT 99
[2018-05-06 09:45] LABS: Add Manual Diff / Slide Review NO; Basophils Percent Auto 3.4 % (0-2); Eosinophils Percent Auto 1.6 % (2-4); Hemoglobin 14.1 g/dL (13.5-17.5); Lymphocytes Percent Auto 38.1 % (25-40); Mean Corpuscular HGB Conc 33.5 % (30-36); Mean Corpuscular Hemoglobin 27.1 PG (26-34); Mean Corpuscular Volume 80.9 fL (80-100); Monocytes Percent Auto 15.2 % (3-14); Neutrophils Absolute Auto 900 /uL (1500-7000); Neutrophils Percent Auto 41.7 % (50-75); Platelet Count 217 X10^3/uL (150-400); Red Blood Cell Count 5.19 X10^6/uL (4.5-5.9); Red Cell Distribution Width 23.7 % (11.6-14.8); White Blood Cell Count 2.3 X10^3/uL (4.5-11.0)
[2018-05-06 10:03] LABS: Anisocytosis 2+
--- NOTE | 2018-05-06 10:24 | P.PNONC_ITS ---
PN -Subjective Interval history: 32-year-old male with newly diagnosed Hodgkin's lymphoma stage IIB. He was started on ABVD cycle 1 day 1 on 03/11/2018. He presents here today for cycle 2 day 15 treatment. Patient reports he had a ?anxiety attack? for which he was evaluated at [facility]. He was prescribed seroquel to take at night for sleep. Pt reports this has not been effective. he also has tried xanax 0.25 also with no improvement in symptoms. He does report at times feeling anxious also reports at times feeling depressed however he states at this point this all seems most related to insomnia. Patient states for the last couple of weeks he has only been getting 1-4 hours of sleep each night. He feels if he could get some good sleep he could better manage his mood. Otherwise feeling well. No cough, fever, chills. No new lumps or bumps he does think the supraclavicular mass continues to shrink. No new pain. Very mild intermittent nausea not affecting his ability to eat. Weight is stable. Activity tolerance is stable. No issue with bladder or bowels. No unexplained bleeding or bruising. he is seing a counselor in [place], he has also met with our S[employer]OL SPECIALIST Carlee Simpson. Patient completed 2 cycles of treatment with ABVD. Patient underwent PET scan on 04/28/2018. And the results showed marked response to treatment with mildly enlarged residual lymph nodes demonstrating FDG uptake below or similar to background activity (Deauville 1-2). Patient reports no fever no chills. No sore throat. No nausea no vomiting. No chest pain. No cough. No abdominal pain. No diarrhea and no constipation. However, patient reports significant depression during the day. And also having problems going to sleep. Patient currently is only taking Ativan 1.5 mg before going to bed. He said that the medication is not strong enough. He woke up at night between 1-2 o'clock sometimes he is able to go back to speak sleep and sometimes he could not. Previously, when he called reporting depression, we prescribed Xanax. However patient used only for couple of days and the dosage was 0.25 mg 3 times a day. Patient said that it was not working and he has stopped taking the medication. Oncological History [place] Shrestha II is a 32 year old male without any past medical or surgical history. Patient reported a ?massive? weight loss of about 20 lb over maybe the past 2-3 months. In addition, patient has been losing energy and feeling tired. Patient also endorsed an early fullness after eating even though feeling hungry. He denies fever or chills. Patient reports some mild night sweats. Patient thought it might be due to thyroid problems as suggested by his friends. He was also reporting some cough especially at certain positions for example leaning forward and he was not able to lie on the right side. He was initially evaluated by [facility] on January 26, 2018. On physical examination, lymphadenopathy was noted to the right and supraclavicular region. CT soft tissue neck without contrast was obtained on February 01, 2018. The scan showed malignant appearing adenopathy bilaterally within the upper mediastinum, and the right neck inferiorly and extending into the right supraclavicular fossa; these then extends into the right axilla to a mild degree. A small degree of adenopathy is also present and the inferior aspect of the left supraclavicular fossa contiguous with the definite left- sided adenopathy present within the mediastinum. Note was made of significant compression of the lower margin of the trachea and the visualized portion of the right mainstream bronchus. February 08, 2018 CT scan of the chest abdomen and pelvis with contrast was performed. The results showed bilateral bulky neck base lymph nodes, right supraclavicular fossa, mediastinal and bilateral hilar lymphadenopathy concerning for lymphoma or metastatic disease, 1.1 cm retrocaval upper retroperitoneal lymphadenopathy concerning for lymphoma versus metastatic disease, 2 mm nonobstructing bilateral renal stones, 4 mm right middle lobe nodule and right sided trace pleural effusion chief. Patient thereafter was referred to Dr. Calvo for excisional biopsy. February 10, 2018, Dr. Calvo performed biopsy of right neck mass. The surgical pathology reported classic Hodgkin lymphoma. In the comment it says the architectural features of the lymphoma in these cervical lymph node biopsies favor a nodular sclerosis classical Hodgkin's lymphoma histologic subtype Patient underwent PET scan on March 03, 2018. The PET scan showed bilateral supraclavicular, bulky mediastinal, bilateral hilar, and right axillary lymphadenopathy consistent with lymphoma. No evidence of luis disease below the diaphragm, trace right pleural effusion and pericardial effusion, right maxillary sinusitis, and some non obstructive renal calculi bilaterally. And testing for hepatitis B, hepatitis C, HIV were all nonreactive. Omer the scan is scheduled for March 10. Patient underwent port placement on February 24, [address] Calvo. - Patient Self-Reported Symptoms SR Constitution: Weight loss/gain (weight gain.) SR ears, nose, mouth, throat issues: Swollen glands (shrinking right supraclavicular fossa) SR respiratory issues: Cough (resolved. ) SR Gastrointestinal issues: Poor or no appetite (Almost normal appetite now.) SR Hematologic issues: Swollen lymph nodes (becoming samller) Home Medications and Allergies Home Medications Medication Instructions Recorded Confirmed Type multivitamin tablet 1 tab PO DAILY 02/09/18 05/06/18 History ondansetron 4 mg PO QID PRN #10 tab 02/10/18 05/06/18 Rx lidocaine-prilocaine See Label Instructions .ROUTE 02/24/18 05/06/18 Rx .COMPLEX #30 gram lorazepam [Ativan] 1 mg PO BEDTIME PRN #60 tab 04/22/18 05/06/18 Rx allopurinol [Zyloprim] 300 mg PO BID #60 tab 04/30/18 05/06/18 Rx Allergies Allergy/AdvReac Type Severity Reaction Status Date / Time No Known Drug Allergies Allergy Verified 02/26/18 08:22 Exam Vital signs: Last Vital Signs Temp 98.3 F 05/06/18 09:42 Pulse 87 05/06/18 09:42 Resp 18 05/06/18 09:42 BP 115/70 05/06/18 09:42 Pulse Ox 99 05/06/18 09:42 ECOG 1 Narrative: Constitutional: WDWN, NAD, average body habitus, well groomed, pleasant and cooperative. HEENT: NCAT, EOMI, PERRLA, anicteric sclera, no hearing difficulty; Oral mucus membrane moist and without ulcers. Neck: Supple, symmetrical, and tracheal midline; No palpable thyromegaly. There is NO palpable lymph nodes in the neck anymore. Respiratory: No use of accessory muscles. Clear to auscultation, and no wheezes or rales or rubs. Cardiovascular: Regular rate and rhythm, S1 and S2 normal, no murmurs gallops or rubs. No JVD. No pitting edema of lower extremities. Abdomen: Soft, nontender, non-distended, bowel sounds normal, no palpable organomegaly, no hernia, no palpable masses. Lower extremities: No palpable pedal edema. Lymphatic: no palpable lymph nodes in the neck, axillae, or groins. Musculoskeletal: normal gait and station, no clubbing, no cyanosis, no pitting edema. Skin: no rashes, no ulcers, no petechiae Neurological: Awake and alert and oriented x3. CN II-XII grossly intact. No focal motor or sensory deficit. Psychiatric: Good judgment, good insight, normal affect, normal thought process , cooperative, no depression, no anxiety. Results - Labs Laboratory Last Values WBC 2.3 X10^3/uL (4.5-11.0) L 05/06/18 09:10 RBC 5.19 X10^6/uL (4.5-5.9) 05/06/18 09:10 Hgb 14.1 g/dL (13.5-17.5) 05/06/18 09:10 Hct 42.0 % (41-53) 05/06/18 09:10 MCV 80.9 fL (80-100) 05/06/18 09:10 MCH 27.1 PG (26-34) 05/06/18 09:10 MCHC 33.5 % (30-36) 05/06/18 09:10 RDW 23.7 % (11.6-14.8) H 05/06/18 09:10 Plt Count 217 X10^3/uL (150-400) 05/06/18 09:10 Neut % (Auto) 41.7 % (50-75) L 05/06/18 09:10 Lymph % (Auto) 38.1 % (25-40) 05/06/18 09:10 [place] % (Auto) 15.2 % (3-14) H 05/06/18 09:10 Eos % (Auto) 1.6 % (2-4) L 05/06/18 09:10 Baso % (Auto) 3.4 % (0-2) H 05/06/18 09:10 Neut # (Auto) 900 /uL (4669-4289) L 05/06/18 09:10 Total Counted 100 03/25/18 08:38 Seg Neutrophils % 43.0 % (38-70) 03/25/18 08:38 Band Neutrophils % 1.0 % (3-7) L 03/25/18 08:38 Lymphocytes % (Manual) 32.0 % (25-45) 03/25/18 08:38 Atypical Lymphs % 2.0 % (-0) H 03/25/18 08:38 Monocytes % (Manual) 12.0 % (2-11) H 03/25/18 08:38 Eosinophils % (Manual) 7.0 % (2-4) H 03/25/18 08:38 Basophils % (Manual) 3.0 % (0-1) H 03/25/18 08:38 Metamyelocytes % Cancelled 05/06/18 09:10 Myelocytes % Cancelled 05/06/18 09:10 Promyelocytes % Cancelled 05/06/18 09:10 Blast Cells % Cancelled 05/06/18 09:10 Neutrophils # (Manual) 1496 /uL (0312-0053) L 03/25/18 08:38 Nucleated RBCs Cancelled 05/06/18 09:10 Differential Comment Cancelled 05/06/18 09:10 Hypersegmented Neuts Cancelled 05/06/18 09:10 Hypogranular Neuts Cancelled 05/06/18 09:10 Reactive Lymphocytes Cancelled 05/06/18 09:10 Plasma Cells Cancelled 05/06/18 09:10 Smudge Cells Cancelled 05/06/18 09:10 Other Cell Type Cancelled 05/06/18 09:10 Toxic Granulation Cancelled 05/06/18 09:10 Toxic Vacuolation Cancelled 05/06/18 09:10 Dohle Bodies Cancelled 05/06/18 09:10 Cyrus Rods Cancelled 05/06/18 09:10 WBC Morphology Comment Cancelled 05/06/18 09:10 Platelet Estimate Cancelled 05/06/18 09:10 Clumped Platelets Cancelled 05/06/18 09:10 Plt Morphology Comment Cancelled 05/06/18 09:10 RBC Morphology Not Reportable 05/06/18 09:10 Dimorphic RBCs Cancelled 05/06/18 09:10 Polychromasia Cancelled 05/06/18 09:10 Hypochromasia 1+ H 04/22/18 09:07 Poikilocytosis Cancelled 05/06/18 09:10 Basophilic Stippling Cancelled 05/06/18 09:10 Anisocytosis 2+ H 05/06/18 09:10 Microcytosis 1+ H 03/25/18 08:38 Macrocytosis Cancelled 05/06/18 09:10 Spherocytes Cancelled 05/06/18 09:10 Pappenheimer Bodies Cancelled 05/06/18 09:10 Sickle Cells Cancelled 05/06/18 09:10 Target Cells Cancelled 05/06/18 09:10 Tear Drop Cells Cancelled 05/06/18 09:10 Ovalocytes Cancelled 05/06/18 09:10 Stomatocytes Cancelled 05/06/18 09:10 Helmet Cells Cancelled 05/06/18 09:10 [place] Bodies Cancelled 05/06/18 09:10 [place] Rings Cancelled 05/06/18 09:10 Ramone Cells Cancelled 05/06/18 09:10 Acanthocytes (Spur) Cancelled 05/06/18 09:10 Rouleaux Cancelled 05/06/18 09:10 Schistocytes Cancelled 05/06/18 09:10 ESR 102 MM/HR (0-15) H 03/03/18 12:29 Sodium 139 mmol/L (137-145) 05/06/18 09:10 Potassium 3.9 mmol/L (3.4-5.1) 05/06/18 09:10 Chloride 102 mmol/L (98-107) 05/06/18 09:10 Carbon Dioxide 27 mmol/L (22-32) 05/06/18 09:10 BUN 12 mg/dL (9-20) 05/06/18 09:10 Creatinine 0.70 mg/dL (0.66-1.25) 05/06/18 09:10 Estimated GFR > 60.0 mL/min (>60) 05/06/18 09:10 BUN/Creatinine Ratio 17.1 (6-22) 05/06/18 09:10 Glucose 120 mg/dL (70-100) H 05/06/18 09:10 Uric Acid 2.0 mg/dL (3.5-8.5) L 05/06/18 09:10 Calcium 9.2 mg/dL (8.4-10.2) 05/06/18 09:10 Total Bilirubin 0.3 mg/dL (0.2-1.3) 05/06/18 09:10 AST 20 IU/L (17-59) 05/06/18 09:10 ALT 21 IU/L (21-72) 05/06/18 09:10 Alkaline Phosphatase 61 U/L (38-126) 05/06/18 09:10 Lactate Dehydrogenase 689 U/L (313-618) H 03/11/18 09:44 Total Protein 7.4 g/dL (6.3-8.2) 05/06/18 09:10 Albumin 4.4 g/dL (3.5-5.0) 05/06/18 09:10 Globulin 3.0 g/dL (1.7-4.1) 05/06/18 09:10 Albumin/Globulin Ratio 1.5 (1.0-2.8) 05/06/18 09:10 Rarf-8-[id number] 2.59 mg/L (< 2.52) H 03/03/18 12:29 Hep Bs Antigen Negative s/c (NEGATIVE) 03/03/18 12:29 Hep Bs Antibody Reactive (Nonreactive) A 03/03/18 12:29 Hep B Core Total Ab Nonreactive (Nonreactive) 03/03/18 12:29 Hep B Core IgM Ab Nonreactive (Nonreactive) 03/03/18 12:29 Hepatitis C Antibody Negative s/c (NEGATIVE) 03/03/18 12:29 HIV 1&2 Antibody Negative (NEGATIVE) 03/03/18 12:29 Assessment and Plan (1) Hodgkin lymphoma, nodular sclerosis Problem details: Presented with weight loss, weakness, and right neck and supraclavicular region enlarging masses. Biopsy of right neck mass 02/10/2018: nodular sclerosis classical Hodgkin's lymphoma. CT (02/01/2018, 02/08/2018) and PET/CT (03/03/2018) showed the disease confined to neck, chest above the diaphragm. Thus stage IIB with unfavorable risk factors (NCCN guideline: bulky > 10cm, ESR >=50, #luis sites >3, B symptoms). MUGA 03/10/2018: EF 62.6% Assessment: Patient has a stage IIB Hodgkin's lymphoma with unfavorable risk factors. Plan per Dr Conner was to proceed with chemotherapy ABVD for 2 cycles followed by restaging with PET/CT. Depending on the PET Deauville response, we will try to take the path to minimize the use of bleomycin. After completion of chemotherapy, we will discuss about the need for involved field radiation therapy. PET/CT scheduled for Apr 28 2018. CBC, CMP largely unremarkable today. White count is a bit low at 3.0 however ANC is a are within normal limits at 4:00 p.m.. CMP unremarkable aside from a low uric acid at 1.5. Renal function is completely normal. Additionally, patient has no clinical manifestations of PRES such as headache, altered consciousness, vision changes, seizures. ABVD started 03/11/2018. Today, I reviewed the laboratory tests with the patient. I also reviewed the PET scan with the patient. Apparently patient has a negative PET scan after 2 rounds of chemotherapy. Based on Rathle regimen, I will stop the bleomycin and continue the remaining treatment. Plan: 1. Stop Bleomycin 2. Ok to proceed to AVD C3 today 2. Continue Allopurinol 300 mg bid 3. RTC MD 2 weeks for follow up visit and C3 D15 treatment 4. CBC, CMP, LDH, B2M next visit (2) Depression The depression most likely is related to the chemotherapy. However it is difficult to pinpoint which chemotherapy component is responsible. I talked with the patient that the dosage of the Xanax can be increased to 0.5 mg 3 times a day. In addition I would recommend continue the Ativan 1.5-2 mg before going to bed. Patient said that he is willing to try and see if it can be of some help in terms of depression and sleeplessness.. (3) Insomnia No improvement with Seroquel. Patient has not been able to get more than 1-4 hours of sleep the last few weeks. After discussing with the patient I will prescribe lorazepam 1 mg HS. If 1 mg not affective okay to take 2 mg the next night. If 2 mg not affective patient is to call the clinic for further evaluation. Expected outcome is that patient gets at least 6 hr of quality sleep. Cont with counseling.
[2018-05-06] MEDS: DEXAMETHASONE 12 MG in SODIUM CHLORIDE 0.9% 50 ML 212 ML IV (10:44)
[2018-05-06] MEDS: SODIUM CHLORIDE 0.9% 100 ML 21 ML IV (10:46)
[2018-05-06] MEDS: ACETAMINOPHEN 325 MG TABLET 650 MG PO (10:48)
[2018-05-06] MEDS: LORazepam 0.5 MG TABLET PO (10:48)
[2018-05-06] MEDS: diphenhydrAMINE 25 MG TABLET PO (10:48)
[2018-05-06] MEDS: FOSAPREPITANT 150 MG in SODIUM CHLORIDE 0.9% 150 ML 300 ML IV (11:04)
[2018-05-06] MEDS: ONDANSETRON 16 MG in SODIUM CHLORIDE 0.9% 50 ML 232 ML IV (11:49)
[2018-05-06] MEDS: DOXORUBICIN HCL IV (12:41)
[2018-05-06] MEDS: SODIUM CHLORIDE 0.9% IV (12:41)
[2018-05-06] MEDS: ISOOSMOTIC VEHICLE IV (13:25)
[2018-05-06] MEDS: VINBLASTINE IV (13:25)
[2018-05-06] MEDS: DACARBAZINE IV (14:06)
[2018-05-06] MEDS: DEXTROSE 5% IV (14:06)
[2018-05-13 13:06] VITALS: BP 101/75; PULSE 81; RESP 18; TEMP 36.7; O2SAT 100
--- NOTE | 2018-05-13 13:51 | P.PNONC_ITS ---
PN -Subjective Interval history: 33-year-old male with newly diagnosed Hodgkin's lymphoma stage IIB. He was started on ABVD cycle 1 day 1 on 03/11/2018. April 28, 2018 patient underwent nuclear medicine PET CT scan for restaging. Overall impression market response to treatment with significant regression of disease throughout. Patient then moved on, 05/06/2018 he completed C3D1. Patient presents today for urgent visit to evaluate ongoing anxiety and depression. Patient is seeing a therapist weekly through [facility] which patient reports is quite helpful. Patient is taking lorazepam sounds like approximately 1-2 mg at night for sleep taking alprazolam during the day. Generally only taking 1 alprazolam at 0.5 mg during the day. He has significant life stressors including this cancer diagnosis, relationship issues , issues at home with parents. Patient demonstrates excellent insight excellent judgment. He has appropriate plans in place. However he still feels as though he is not getting adequate sleep and understandably this is contributing to ongoing issues during the day. Otherwise feeling well. No reports of cough, fever, chills. No nausea. Appetite is stable. Activity tolerance is stable. No issues with bladder or bowels. Patient gets out daily for walks. He will do some exercise in his home. He has also met with our [employer] Carlee Simpson. Oncological History [place] Shrestha II is a 32 year old male without any past medical or surgical history. Patient reported a ?massive? weight loss of about 20 lb over maybe the past 2-3 months. In addition, patient has been losing energy and feeling tired. Patient also endorsed an early fullness after eating even though feeling hungry. He denies fever or chills. Patient reports some mild night sweats. Patient thought it might be due to thyroid problems as suggested by his friends. He was also reporting some cough especially at certain positions for example leaning forward and he was not able to lie on the right side. He was initially evaluated by [facility] on January 26, 2018. On physical examination, lymphadenopathy was noted to the right and supraclavicular region. CT soft tissue neck without contrast was obtained on February 01, 2018. The scan showed malignant appearing adenopathy bilaterally within the upper mediastinum, and the right neck inferiorly and extending into the right supraclavicular fossa; these then extends into the right axilla to a mild degree. A small degree of adenopathy is also present and the inferior aspect of the left supraclavicular fossa contiguous with the definite left- sided adenopathy present within the mediastinum. Note was made of significant compression of the lower margin of the trachea and the visualized portion of the right mainstream bronchus. February 08, 2018 CT scan of the chest abdomen and pelvis with contrast was performed. The results showed bilateral bulky neck base lymph nodes, right supraclavicular fossa, mediastinal and bilateral hilar lymphadenopathy concerning for lymphoma or metastatic disease, 1.1 cm retrocaval upper retroperitoneal lymphadenopathy concerning for lymphoma versus metastatic disease, 2 mm nonobstructing bilateral renal stones, 4 mm right middle lobe nodule and right sided trace pleural effusion chief. Patient thereafter was referred to Dr. Calvo for excisional biopsy. February 10, 2018, Dr. Calvo performed biopsy of right neck mass. The surgical pathology reported classic Hodgkin lymphoma. In the comment it says the architectural features of the lymphoma in these cervical lymph node biopsies favor a nodular sclerosis classical Hodgkin's lymphoma histologic subtype Patient underwent PET scan on March 03, 2018. The PET scan showed bilateral supraclavicular, bulky mediastinal, bilateral hilar, and right axillary lymphadenopathy consistent with lymphoma. No evidence of luis disease below the diaphragm, trace right pleural effusion and pericardial effusion, right maxillary sinusitis, and some non obstructive renal calculi bilaterally. And testing for hepatitis B, hepatitis C, HIV were all nonreactive. Omer the scan is scheduled for March 10. Patient underwent port placement on February 24, [address] Calvo. - Patient Self-Reported Symptoms SR Constitution: Weight loss/gain (weight gain.) SR ears, nose, mouth, throat issues: Swollen glands (shrinking right supraclavicular fossa) SR respiratory issues: Cough (resolved. ) SR Gastrointestinal issues: Poor or no appetite (Almost normal appetite now.) SR Hematologic issues: Swollen lymph nodes (becoming samller) Home Medications and Allergies Home Medications Medication Instructions Recorded Confirmed Type multivitamin tablet 1 tab PO DAILY 02/09/18 05/06/18 History ondansetron 4 mg PO QID PRN #10 tab 02/10/18 05/06/18 Rx lidocaine-prilocaine See Label Instructions .ROUTE 02/24/18 05/06/18 Rx .COMPLEX #30 gram lorazepam [Ativan] 1 mg PO BEDTIME PRN #60 tab 04/22/18 05/06/18 Rx allopurinol [Zyloprim] 300 mg PO BID #60 tab 04/30/18 05/06/18 Rx alprazolam 1 mg PO BID-TID PRN #60 tab 05/10/18 Rx Allergies Allergy/AdvReac Type Severity Reaction Status Date / Time No Known Drug Allergies Allergy Verified 02/26/18 08:22 Exam - Constitutional positive no acute distress, positive thin - Routine Neurological Exam Present: alert, oriented X3 - Routine Psychiatric Exam Present: normal affect, normal thought process, cooperative, good insight, good judgment. Absent: suicidal ideation, homicidal ideation Results - Labs Laboratory Last Values WBC 2.3 X10^3/uL (4.5-11.0) L 05/06/18 09:10 RBC 5.19 X10^6/uL (4.5-5.9) 05/06/18 09:10 Hgb 14.1 g/dL (13.5-17.5) 05/06/18 09:10 Hct 42.0 % (41-53) 05/06/18 09:10 MCV 80.9 fL (80-100) 05/06/18 09:10 MCH 27.1 PG (26-34) 05/06/18 09:10 MCHC 33.5 % (30-36) 05/06/18 09:10 RDW 23.7 % (11.6-14.8) H 05/06/18 09:10 Plt Count 217 X10^3/uL (150-400) 05/06/18 09:10 Neut % (Auto) 41.7 % (50-75) L 05/06/18 09:10 Lymph % (Auto) 38.1 % (25-40) 05/06/18 09:10 [place] % (Auto) 15.2 % (3-14) H 05/06/18 09:10 Eos % (Auto) 1.6 % (2-4) L 05/06/18 09:10 Baso % (Auto) 3.4 % (0-2) H 05/06/18 09:10 Neut # (Auto) 900 /uL (4281-1074) L 05/06/18 09:10 Total Counted 100 03/25/18 08:38 Seg Neutrophils % 43.0 % (38-70) 03/25/18 08:38 Band Neutrophils % 1.0 % (3-7) L 03/25/18 08:38 Lymphocytes % (Manual) 32.0 % (25-45) 03/25/18 08:38 Atypical Lymphs % 2.0 % (-0) H 03/25/18 08:38 Monocytes % (Manual) 12.0 % (2-11) H 03/25/18 08:38 Eosinophils % (Manual) 7.0 % (2-4) H 03/25/18 08:38 Basophils % (Manual) 3.0 % (0-1) H 03/25/18 08:38 Metamyelocytes % Cancelled 05/06/18 09:10 Myelocytes % Cancelled 05/06/18 09:10 Promyelocytes % Cancelled 05/06/18 09:10 Blast Cells % Cancelled 05/06/18 09:10 Neutrophils # (Manual) 1496 /uL (4862-6439) L 03/25/18 08:38 Nucleated RBCs Cancelled 05/06/18 09:10 Differential Comment Cancelled 05/06/18 09:10 Hypersegmented Neuts Cancelled 05/06/18 09:10 Hypogranular Neuts Cancelled 05/06/18 09:10 Reactive Lymphocytes Cancelled 05/06/18 09:10 Plasma Cells Cancelled 05/06/18 09:10 Smudge Cells Cancelled 05/06/18 09:10 Other Cell Type Cancelled 05/06/18 09:10 Toxic Granulation Cancelled 05/06/18 09:10 Toxic Vacuolation Cancelled 05/06/18 09:10 Dohle Bodies Cancelled 05/06/18 09:10 Cyrus Rods Cancelled 05/06/18 09:10 WBC Morphology Comment Cancelled 05/06/18 09:10 Platelet Estimate Cancelled 05/06/18 09:10 Clumped Platelets Cancelled 05/06/18 09:10 Plt Morphology Comment Cancelled 05/06/18 09:10 RBC Morphology Not Reportable 05/06/18 09:10 Dimorphic RBCs Cancelled 05/06/18 09:10 Polychromasia Cancelled 05/06/18 09:10 Hypochromasia 1+ H 04/22/18 09:07 Poikilocytosis Cancelled 05/06/18 09:10 Basophilic Stippling Cancelled 05/06/18 09:10 Anisocytosis 2+ H 05/06/18 09:10 Microcytosis 1+ H 03/25/18 08:38 Macrocytosis Cancelled 05/06/18 09:10 Spherocytes Cancelled 05/06/18 09:10 Pappenheimer Bodies Cancelled 05/06/18 09:10 Sickle Cells Cancelled 05/06/18 09:10 Target Cells Cancelled 05/06/18 09:10 Tear Drop Cells Cancelled 05/06/18 09:10 Ovalocytes Cancelled 05/06/18 09:10 Stomatocytes Cancelled 05/06/18 09:10 Helmet Cells Cancelled 05/06/18 09:10 [place] Bodies Cancelled 05/06/18 09:10 Busby Rings Cancelled 05/06/18 09:10 [place] Cells Cancelled 05/06/18 09:10 Acanthocytes (Spur) Cancelled 05/06/18 09:10 Rouleaux Cancelled 05/06/18 09:10 Schistocytes Cancelled 05/06/18 09:10 ESR 102 MM/HR (0-15) H 03/03/18 12:29 Sodium 139 mmol/L (137-145) 05/06/18 09:10 Potassium 3.9 mmol/L (3.4-5.1) 05/06/18 09:10 Chloride 102 mmol/L (98-107) 05/06/18 09:10 Carbon Dioxide 27 mmol/L (22-32) 05/06/18 09:10 BUN 12 mg/dL (9-20) 05/06/18 09:10 Creatinine 0.70 mg/dL (0.66-1.25) 05/06/18 09:10 Estimated GFR > 60.0 mL/min (>60) 05/06/18 09:10 BUN/Creatinine Ratio 17.1 (6-22) 05/06/18 09:10 Glucose 120 mg/dL (70-100) H 05/06/18 09:10 Uric Acid 2.0 mg/dL (3.5-8.5) L 05/06/18 09:10 Calcium 9.2 mg/dL (8.4-10.2) 05/06/18 09:10 Total Bilirubin 0.3 mg/dL (0.2-1.3) 05/06/18 09:10 AST 20 IU/L (17-59) 05/06/18 09:10 ALT 21 IU/L (21-72) 05/06/18 09:10 Alkaline Phosphatase 61 U/L (38-126) 05/06/18 09:10 Lactate Dehydrogenase 689 U/L (313-618) H 03/11/18 09:44 Total Protein 7.4 g/dL (6.3-8.2) 05/06/18 09:10 Albumin 4.4 g/dL (3.5-5.0) 05/06/18 09:10 Globulin 3.0 g/dL (1.7-4.1) 05/06/18 09:10 Albumin/Globulin Ratio 1.5 (1.0-2.8) 05/06/18 09:10 [id number] 2.59 mg/L (< 2.52) H 03/03/18 12:29 Hep Bs Antigen Negative s/c (NEGATIVE) 03/03/18 12:29 Hep Bs Antibody Reactive (Nonreactive) A 03/03/18 12:29 Hep B Core Total Ab Nonreactive (Nonreactive) 03/03/18 12:29 Hep B Core IgM Ab Nonreactive (Nonreactive) 03/03/18 12:29 Hepatitis C Antibody Negative s/c (NEGATIVE) 03/03/18 12:29 HIV 1&2 Antibody Negative (NEGATIVE) 03/03/18 12:29 Assessment and Plan (1) Hodgkin lymphoma, nodular sclerosis Problem details: Presented with weight loss, weakness, and right neck and supraclavicular region enlarging masses. Biopsy of right neck mass 02/10/2018: nodular sclerosis classical Hodgkin's lymphoma. CT (02/01/2018, 02/08/2018) and PET/CT (03/03/2018) showed the disease confined to neck, chest above the diaphragm. Thus stage IIB with unfavorable risk factors (NCCN guideline: bulky > 10cm, ESR >=50, #luis sites >3, B symptoms). MUGA 03/10/2018: EF 62.6% Assessment: Patient has a stage IIB Hodgkin's lymphoma with unfavorable risk factors. ABVD treatment initiated March 11, 2018. Nuclear medicine PET-CT scan April 28 demonstrated excellent response thus far to treatment with significant regression of disease. Patient has appointment next week May 20 to continue with therapy. Plan: 1. Bleomycin has been discontinued. 2. Keep appointment May 20 as previously scheduled for cycle 4. 3. Continue Allopurinol 300 mg bid 4. CBC, CMP, LDH, B2M next visit (2) Depression Current visit: Yes Status: Acute Depression also generalized anxiety disorder. The depression most likely is related to the chemotherapy. However patient also reports outside factors which are contributing. He is seeing a counselor weekly. He is taking lorazepam at night for sleep alprazolam occasionally during the day however he is taking most days. Patient today demonstrates excellent judgement, excellent insight. He has a good plan moving forward. I discussed with the patient I would very much prefer for him to start a long-term medication such as an SSRI (sertraline noting low side effect profile also fewest contraindications with chemotherapy) noting the benzodiazepines are temporary in for acute issues only. Patient verbalizes today he would rather wait and see how he is doing next week. He will be meeting with his counselor next week. He is concerned about the side effects of longer term medication I described to the patient the goal of longer term medication such as daily SSRI is to decrease the frequency and severity of labile moods also add some mood stability. Benzodiazepines are indicated only for short-term use in her known to be habit forming and patients can quite quickly build a tolerance requiring more medication. Patient verbalizes understanding. Again, he has very good insight and judgment. (3) Insomnia Current visit: Yes Status: Acute Cont lorazepam. Pt asked specifically about sleep medications I would prefer he continue lorazepam as opposed to hypnotics noting increased risk of labile moods and dependency with these medications. A more safe route would definitely be SSRI such as sertraline. - Time Spent with Patient 45 mins direct face to face counseling and discussion.
[2018-05-20 09:36] LABS: Add Manual Diff / Slide Review NO; Basophils Absolute Auto 0 /uL (0-100); Basophils Percent Auto 1.8 % (0-2); Eosinophils Absolute Auto 0 /uL (0-450); Eosinophils Percent Auto 1.5 % (2-4); Hematocrit 41.5 % (41-53); Hemoglobin 13.8 g/dL (13.5-17.5); Lymphocytes Absolute Auto 800 /uL (1100-4500); Lymphocytes Percent Auto 37.5 % (25-40); Mean Corpuscular HGB Conc 33.3 % (30-36); Mean Corpuscular Hemoglobin 27.7 PG (26-34); Mean Corpuscular Volume 83.4 fL (80-100); Monocytes Absolute Auto 300 /uL (0-900); Monocytes Percent Auto 16.4 % (3-14); Neutrophils Absolute Auto 900 /uL (1500-7000); Neutrophils Percent Auto 42.8 % (50-75); Platelet Count 236 X10^3/uL (150-400); Red Blood Cell Count 4.98 X10^6/uL (4.5-5.9); Red Cell Distribution Width 22.7 % (11.6-14.8)
[2018-05-20 09:48] LABS: Alanine Aminotransferase 22 IU/L (21-72); Albumin 4.4 g/dL (3.5-5.0); Albumin Globulin Ratio 1.5 (1.0-2.8); Alkaline Phosphatase 61 U/L (38-126); Aspartate Aminotransferase 21 IU/L (17-59); BUN Creatinine Ratio 15.7 (6-22); Bilirubin Total 0.2 mg/dL (0.2-1.3); Blood Urea Nitrogen 11 mg/dL (9-20); Calcium 9.4 mg/dL (8.4-10.2); Carbon Dioxide 30 mmol/L (22-32); Chloride 101 mmol/L (98-107); Estimated Glomerular Filt Rate > 60.0 mL/min (>60); Globulin 2.9 g/dL (1.7-4.1); Glucose 90 mg/dL (70-100); HEMOLYSIS < 15 (0-50); Lactate Dehydrogenase 289 U/L (313-618); Potassium 4.4 mmol/L (3.4-5.1); Sodium 141 mmol/L (137-145); Total Protein 7.3 g/dL (6.3-8.2)
[2018-05-20 09:52] LABS: Anisocytosis 2+
--- NOTE | 2018-05-20 10:09 | ONC.PN ---
PN -Subjective Interval history: Today (05/20/2018), he presents for C3D15 therapy including dacarbazine, doxorubicin, and vinblastine. Bleomycin has been stopped starting from cycle 3. His major clinical complaint has been depression and anxiety. Our [employer]SULTANT Carlee has been working very closely with him. Patient is also getting counselor visit every week. The patient himself reported that lorazepam 2 mg Lorazempam 2 mg taken at night has been helpful initiating sleep but not helpful in maintaining sleep. He usually woke up at 4-5 am. He admits that he is more depressed than anxious. He admits to issue with relationship. He said he is going to have a talk this weekend likely regarding break-off. He said the closer the Thursday gets, the more anxiety he feels. He is now also taking alprazolam 4 mg 1-2 times a day Oncological History [place] Shrestha II is a 32 year old male without any past medical or surgical history. Patient reported a ?massive? weight loss of about 20 lb over maybe the past 2-3 months. In addition, patient has been losing energy and feeling tired. Patient also endorsed an early fullness after eating even though feeling hungry. He denies fever or chills. Patient reports some mild night sweats. Patient thought it might be due to thyroid problems as suggested by his friends. He was also reporting some cough especially at certain positions for example leaning forward and he was not able to lie on the right side. He was initially evaluated by [facility] on January 26, 2018. On physical examination, lymphadenopathy was noted to the right and supraclavicular region. CT soft tissue neck without contrast was obtained on February 01, 2018. The scan showed malignant appearing adenopathy bilaterally within the upper mediastinum, and the right neck inferiorly and extending into the right supraclavicular fossa; these then extends into the right axilla to a mild degree. A small degree of adenopathy is also present and the inferior aspect of the left supraclavicular fossa contiguous with the definite left-sided adenopathy present within the mediastinum. Note was made of significant compression of the lower margin of the trachea and the visualized portion of the right mainstream bronchus. February 08, 2018 CT scan of the chest abdomen and pelvis with contrast was performed. The results showed bilateral bulky neck base lymph nodes, right supraclavicular fossa, mediastinal and bilateral hilar lymphadenopathy concerning for lymphoma or metastatic disease, 1.1 cm retrocaval upper retroperitoneal lymphadenopathy concerning for lymphoma versus metastatic disease, 2 mm nonobstructing bilateral renal stones, 4 mm right middle lobe nodule and right sided trace pleural effusion chief. Patient thereafter was referred to Dr. Calvo for excisional biopsy. February 10, 2018, Dr. Calvo performed biopsy of right neck mass. The surgical pathology reported classic Hodgkin lymphoma. In the comment it says the architectural features of the lymphoma in these cervical lymph node biopsies favor a nodular sclerosis classical Hodgkin's lymphoma histologic subtype Patient underwent PET scan on March 03, 2018. The PET scan showed bilateral supraclavicular, bulky mediastinal, bilateral hilar, and right axillary lymphadenopathy consistent with lymphoma. No evidence of luis disease below the diaphragm, trace right pleural effusion and pericardial effusion, right maxillary sinusitis, and some non obstructive renal calculi bilaterally. And testing for hepatitis B, hepatitis C, HIV were all nonreactive. Omer the scan is scheduled for March 10. Patient underwent port placement on February 24, [address] Calvo. He was started on ABVD cycle 1 day 1 on 03/11/2018. April 28, 2018 patient underwent nuclear medicine PET CT scan for restaging. Overall impression market response to treatment with significant regression of disease throughout. From cycle 3 (05/06/2018), bleomycin was stopped. He continued on AVD. - Patient Self-Reported Symptoms SR Constitution: Weight loss/gain (weight gain.) SR ears, nose, mouth, throat issues: Swollen glands (shrinking right supraclavicular fossa) SR respiratory issues: Cough (resolved. ) SR Gastrointestinal issues: Poor or no appetite (Almost normal appetite now.) SR Hematologic issues: Swollen lymph nodes (becoming samller) - Additional ROS All systems PM: reviewed and no additional remarkable complaints except as stated Home Medications and Allergies Home Medications Medication Instructions Recorded Confirmed Type multivitamin tablet 1 tab PO DAILY 02/09/18 05/20/18 History ondansetron 4 mg PO QID PRN #10 tab 02/10/18 05/20/18 Rx lidocaine-prilocaine See Label Instructions .ROUTE 02/24/18 05/20/18 Rx .COMPLEX #30 gram allopurinol [Zyloprim] 300 mg PO BID #60 tab 04/30/18 05/20/18 Rx alprazolam 1 mg PO BID-TID PRN #60 tab 05/10/18 05/20/18 Rx lorazepam [Ativan] 1 mg PO BEDTIME PRN #60 tab 05/13/18 05/20/18 Rx levofloxacin [Levaquin] 500 mg PO DAILY #10 tab 05/20/18 05/20/18 Rx venlafaxine [Effexor XR] 37.5 mg PO DAILY #14 cap 05/20/18 Rx Allergies Allergy/AdvReac Type Severity Reaction Status Date / Time No Known Drug Allergies Allergy Verified 02/26/18 08:22 Exam Vital signs: Last Vital Signs Temp 98.6 F 05/20/18 10:29 Pulse 74 05/20/18 10:29 Resp 18 05/20/18 10:29 BP 108/64 05/20/18 10:29 Pulse Ox 100 05/20/18 10:29 ECOG 1 Narrative: Constitutional: WDWN, NAD, average body habitus, well groomed, pleasant and cooperative. HEENT: NCAT, EOMI, PERRLA, anicteric sclera, no hearing difficulty; Oral mucus membrane moist and without ulcers. Neck: Supple, symmetrical, and tracheal midline; No palpable thyromegaly. There is NO palpable lymph nodes in the neck anymore. Respiratory: No use of accessory muscles. Clear to auscultation, and no wheezes or rales or rubs. Cardiovascular: Regular rate and rhythm, S1 and S2 normal, no murmurs gallops or rubs. No JVD. No pitting edema of lower extremities. Abdomen: Soft, nontender, non-distended, bowel sounds normal, no palpable organomegaly, no hernia, no palpable masses. Lower extremities: No palpable pedal edema. Lymphatic: no palpable lymph nodes in the neck, axillae, or groins. Musculoskeletal: normal gait and station, no clubbing, no cyanosis, no pitting edema. Skin: no rashes, no ulcers, no petechiae Neurological: Awake and alert and oriented x3. CN II-XII grossly intact. No focal motor or sensory deficit. Psychiatric: Good judgment, good insight, normal affect, normal thought process, cooperative, no depression, no anxiety. Results - Labs Laboratory Last Values WBC 2.0 X10^3/uL (4.5-11.0) L 05/20/18 09:16 RBC 4.98 X10^6/uL (4.5-5.9) 05/20/18 09:16 Hgb 13.8 g/dL (13.5-17.5) 05/20/18 09:16 Hct 41.5 % (41-53) 05/20/18 09:16 MCV 83.4 fL (80-100) 05/20/18 09:16 MCH 27.7 PG (26-34) 05/20/18 09:16 MCHC 33.3 % (30-36) 05/20/18 09:16 RDW 22.7 % (11.6-14.8) H 05/20/18 09:16 Plt Count 236 X10^3/uL (150-400) 05/20/18 09:16 Neut % (Auto) 42.8 % (50-75) L 05/20/18 09:16 Lymph % (Auto) 37.5 % (25-40) 05/20/18 09:16 Hayes % (Auto) 16.4 % (3-14) H 05/20/18 09:16 Eos % (Auto) 1.5 % (2-4) L 05/20/18 09:16 Baso % (Auto) 1.8 % (0-2) 05/20/18 09:16 Neut # (Auto) 900 /uL (7713-8961) L 05/20/18 09:16 Lymph # (Auto) 800 /uL (7609-0841) L 05/20/18 09:16 Hayes # (Auto) 300 /uL (0-900) 05/20/18 09:16 Eos # (Auto) 0 /uL (0-450) 05/20/18 09:16 Baso # (Auto) 0 /uL (0-100) 05/20/18 09:16 Total Counted 100 03/25/18 08:38 Seg Neutrophils % 43.0 % (38-70) 03/25/18 08:38 Band Neutrophils % 1.0 % (3-7) L 03/25/18 08:38 Lymphocytes % (Manual) 32.0 % (25-45) 03/25/18 08:38 Atypical Lymphs % 2.0 % (-0) H 03/25/18 08:38 Monocytes % (Manual) 12.0 % (2-11) H 03/25/18 08:38 Eosinophils % (Manual) 7.0 % (2-4) H 03/25/18 08:38 Basophils % (Manual) 3.0 % (0-1) H 03/25/18 08:38 Metamyelocytes % Cancelled 05/06/18 09:10 Myelocytes % Cancelled 05/06/18 09:10 Promyelocytes % Cancelled 05/06/18 09:10 Blast Cells % Cancelled 05/06/18 09:10 Neutrophils # (Manual) 1496 /uL (3960-8997) L 03/25/18 08:38 Nucleated RBCs Cancelled 05/06/18 09:10 Differential Comment Cancelled 05/06/18 09:10 Hypersegmented Neuts Cancelled 05/06/18 09:10 Hypogranular Neuts Cancelled 05/06/18 09:10 Reactive Lymphocytes Cancelled 05/06/18 09:10 Plasma Cells Cancelled 05/06/18 09:10 Smudge Cells Cancelled 05/06/18 09:10 Other Cell Type Cancelled 05/06/18 09:10 Toxic Granulation Cancelled 05/06/18 09:10 Toxic Vacuolation Cancelled 05/06/18 09:10 Dohle Bodies Cancelled 05/06/18 09:10 Cyrus Rods Cancelled 05/06/18 09:10 WBC Morphology Comment Cancelled 05/06/18 09:10 Platelet Estimate Cancelled 05/06/18 09:10 Clumped Platelets Cancelled 05/06/18 09:10 Plt Morphology Comment Cancelled 05/06/18 09:10 RBC Morphology Not Reportable 05/20/18 09:16 Dimorphic RBCs Cancelled 05/06/18 09:10 Polychromasia Cancelled 05/06/18 09:10 Hypochromasia 1+ H 04/22/18 09:07 Poikilocytosis Cancelled 05/06/18 09:10 Basophilic Stippling Cancelled 05/06/18 09:10 Anisocytosis 2+ H 05/20/18 09:16 Microcytosis 1+ H 03/25/18 08:38 Macrocytosis Cancelled 05/06/18 09:10 Spherocytes Cancelled 05/06/18 09:10 Pappenheimer Bodies Cancelled 05/06/18 09:10 Sickle Cells Cancelled 05/06/18 09:10 Target Cells Cancelled 05/06/18 09:10 Tear Drop Cells Cancelled 05/06/18 09:10 Ovalocytes Cancelled 05/06/18 09:10 Stomatocytes Cancelled 05/06/18 09:10 Helmet Cells Cancelled 05/06/18 09:10 [place] Bodies Cancelled 05/06/18 09:10 [place] Rings Cancelled 05/06/18 09:10 [place] Cells Cancelled 05/06/18 09:10 Acanthocytes (Spur) Cancelled 05/06/18 09:10 Rouleaux Cancelled 05/06/18 09:10 Schistocytes Cancelled 05/06/18 09:10 ESR 102 MM/HR (0-15) H 03/03/18 12:29 Sodium 141 mmol/L (137-145) 05/20/18 09:16 Potassium 4.4 mmol/L (3.4-5.1) 05/20/18 09:16 Chloride 101 mmol/L (98-107) 05/20/18 09:16 Carbon Dioxide 30 mmol/L (22-32) 05/20/18 09:16 BUN 11 mg/dL (9-20) 05/20/18 09:16 Creatinine 0.70 mg/dL (0.66-1.25) 05/20/18 09:16 Estimated GFR > 60.0 mL/min (>60) 05/20/18 09:16 BUN/Creatinine Ratio 15.7 (6-22) 05/20/18 09:16 Glucose 90 mg/dL (70-100) 05/20/18 09:16 Uric Acid 2.0 mg/dL (3.5-8.5) L 05/06/18 09:10 Calcium 9.4 mg/dL (8.4-10.2) 05/20/18 09:16 Total Bilirubin 0.2 mg/dL (0.2-1.3) 05/20/18 09:16 AST 21 IU/L (17-59) 05/20/18 09:16 ALT 22 IU/L (21-72) 05/20/18 09:16 Alkaline Phosphatase 61 U/L (38-126) 05/20/18 09:16 Lactate Dehydrogenase 289 U/L (313-618) L 05/20/18 09:16 Total Protein 7.3 g/dL (6.3-8.2) 05/20/18 09:16 Albumin 4.4 g/dL (3.5-5.0) 05/20/18 09:16 Globulin 2.9 g/dL (1.7-4.1) 05/20/18 09:16 Albumin/Globulin Ratio 1.5 (1.0-2.8) 05/20/18 09:16 [id number] 2.59 mg/L (< 2.52) H 03/03/18 12:29 Hep Bs Antigen Negative s/c (NEGATIVE) 03/03/18 12:29 Hep Bs Antibody Reactive (Nonreactive) A 03/03/18 12:29 Hep B Core Total Ab Nonreactive (Nonreactive) 03/03/18 12:29 Hep B Core IgM Ab Nonreactive (Nonreactive) 03/03/18 12:29 Hepatitis C Antibody Negative s/c (NEGATIVE) 03/03/18 12:29 HIV 1&2 Antibody Negative (NEGATIVE) 03/03/18 12:29 Assessment and Plan (1) Hodgkin lymphoma, nodular sclerosis Problem details: Presented with weight loss, weakness, and right neck and supraclavicular region enlarging masses. Biopsy of right neck mass 02/10/2018: nodular sclerosis classical Hodgkin's lymphoma. CT (02/01/2018, 02/08/2018) and PET/CT (03/03/2018) showed the disease confined to neck, chest above the diaphragm. Thus stage IIB with unfavorable risk factors (NCCN guideline: bulky >10cm, ESR >=50, #luis sites >3, B symptoms). MUGA 03/10/2018: EF 62.6% Assessment: Patient has a stage IIB Hodgkin's lymphoma with unfavorable risk factors. ABVD treatment initiated March 11, 2018. PET-CT scan 04/28/2018 showed negative scan indicative of excellent response. Therefore, bleomycin has been discontinued starting from cycle 3. His ANC is 900 and is trending down. I will start prophylactic levaquin. Plan: 1. Ok to proceed to cycle 3 day 15 2. Continue Allopurinol 300 mg bid 3. Levaquin 500 mg x 10#, 1# daily 4. RTC in 2 weeks for C4D1 treatment, CBC, CMP, LDH (2) Depression Depression also generalized anxiety disorder. The depression most likely is related to the chemotherapy. However patient also reports outside factors which are contributing. He is seeing a counselor weekly. He is taking lorazepam at night for sleep alprazolam occasionally during the day however he is taking most days. Patient is very much concerned about the possible addiction to benzos or Xanax. As a result patient is taking Xanax only once a day. But he reports that Xanax is clearly helpful in terms of depression and anxiety. Plan: Patient is now with therapist every week Add effexor ER 37.5 mg daily Continue Xanax 4 mg daily Continue Ativan before going to bed. (3) Insomnia Cont lorazepam. I added Efexor ER today. Hopefully, it will be of some help. I have encourage him to talk with our [employer]ANT Carlee.
--- NOTE | 2018-05-20 10:15 | P.PNONC_ITS ---
PN -Subjective Interval history: Today (05/20/2018), he presents for C3D15 therapy including dacarbazine, doxorubicin, and vinblastine. Bleomycin has been stopped starting from cycle 3. His major clinical complaint has been depression and anxiety. Our [facility] has been working very closely with him. Patient is also getting counselor visit every week. The patient himself reported that lorazepam 2 mg Lorazempam 2 mg taken at night has been helpful initiating sleep but not helpful in maintaining sleep. He usually woke up at 4-5 am. He admits that he is more depressed than anxious. He admits to issue with relationship. He said he is going to have a talk this weekend likely regarding break-off. He said the closer the Thursday gets , the more anxiety he feels. He is now also taking alprazolam 4 mg 1-2 times a day Oncological History [place] Shrestha II is a 32 year old male without any past medical or surgical history. Patient reported a ?massive? weight loss of about 20 lb over maybe the past 2-3 months. In addition, patient has been losing energy and feeling tired. Patient also endorsed an early fullness after eating even though feeling hungry. He denies fever or chills. Patient reports some mild night sweats. Patient thought it might be due to thyroid problems as suggested by his friends. He was also reporting some cough especially at certain positions for example leaning forward and he was not able to lie on the right side. He was initially evaluated by [facility] on January 26, 2018. On physical examination, lymphadenopathy was noted to the right and supraclavicular region. CT soft tissue neck without contrast was obtained on February 01, 2018. The scan showed malignant appearing adenopathy bilaterally within the upper mediastinum, and the right neck inferiorly and extending into the right supraclavicular fossa; these then extends into the right axilla to a mild degree. A small degree of adenopathy is also present and the inferior aspect of the left supraclavicular fossa contiguous with the definite left- sided adenopathy present within the mediastinum. Note was made of significant compression of the lower margin of the trachea and the visualized portion of the right mainstream bronchus. February 08, 2018 CT scan of the chest abdomen and pelvis with contrast was performed. The results showed bilateral bulky neck base lymph nodes, right supraclavicular fossa, mediastinal and bilateral hilar lymphadenopathy concerning for lymphoma or metastatic disease, 1.1 cm retrocaval upper retroperitoneal lymphadenopathy concerning for lymphoma versus metastatic disease, 2 mm nonobstructing bilateral renal stones, 4 mm right middle lobe nodule and right sided trace pleural effusion chief. Patient thereafter was referred to Dr. Calvo for excisional biopsy. February 10, 2018, Dr. Calvo performed biopsy of right neck mass. The surgical pathology reported classic Hodgkin lymphoma. In the comment it says the architectural features of the lymphoma in these cervical lymph node biopsies favor a nodular sclerosis classical Hodgkin's lymphoma histologic subtype Patient underwent PET scan on March 03, 2018. The PET scan showed bilateral supraclavicular, bulky mediastinal, bilateral hilar, and right axillary lymphadenopathy consistent with lymphoma. No evidence of luis disease below the diaphragm, trace right pleural effusion and pericardial effusion, right maxillary sinusitis, and some non obstructive renal calculi bilaterally. And testing for hepatitis B, hepatitis C, HIV were all nonreactive. Omer the scan is scheduled for March 10. Patient underwent port placement on February 24, [address] Calvo. He was started on ABVD cycle 1 day 1 on 03/11/2018. April 28, 2018 patient underwent nuclear medicine PET CT scan for restaging. Overall impression market response to treatment with significant regression of disease throughout. From cycle 3 (05/06/2018), bleomycin was stopped. He continued on AVD. - Patient Self-Reported Symptoms SR Constitution: Weight loss/gain (weight gain.) SR ears, nose, mouth, throat issues: Swollen glands (shrinking right supraclavicular fossa) SR respiratory issues: Cough (resolved. ) SR Gastrointestinal issues: Poor or no appetite (Almost normal appetite now.) SR Hematologic issues: Swollen lymph nodes (becoming samller) - Additional ROS All systems PM: reviewed and no additional remarkable complaints except as stated Home Medications and Allergies Home Medications Medication Instructions Recorded Confirmed Type multivitamin tablet 1 tab PO DAILY 02/09/18 05/20/18 History ondansetron 4 mg PO QID PRN #10 tab 02/10/18 05/20/18 Rx lidocaine-prilocaine See Label Instructions .ROUTE 02/24/18 05/20/18 Rx .COMPLEX #30 gram allopurinol [Zyloprim] 300 mg PO BID #60 tab 04/30/18 05/20/18 Rx alprazolam 1 mg PO BID-TID PRN #60 tab 05/10/18 05/20/18 Rx lorazepam [Ativan] 1 mg PO BEDTIME PRN #60 tab 05/13/18 05/20/18 Rx levofloxacin [Levaquin] 500 mg PO DAILY #10 tab 05/20/18 05/20/18 Rx venlafaxine [Effexor XR] 37.5 mg PO DAILY #14 cap 05/20/18 Rx Allergies Allergy/AdvReac Type Severity Reaction Status Date / Time No Known Drug Allergies Allergy Verified 02/26/18 08:22 Exam Vital signs: Last Vital Signs Temp 98.6 F 05/20/18 10:29 Pulse 74 05/20/18 10:29 Resp 18 05/20/18 10:29 BP 108/64 05/20/18 10:29 Pulse Ox 100 05/20/18 10:29 ECOG 1 Narrative: Constitutional: WDWN, NAD, average body habitus, well groomed, pleasant and cooperative. HEENT: NCAT, EOMI, PERRLA, anicteric sclera, no hearing difficulty; Oral mucus membrane moist and without ulcers. Neck: Supple, symmetrical, and tracheal midline; No palpable thyromegaly. There is NO palpable lymph nodes in the neck anymore. Respiratory: No use of accessory muscles. Clear to auscultation, and no wheezes or rales or rubs. Cardiovascular: Regular rate and rhythm, S1 and S2 normal, no murmurs gallops or rubs. No JVD. No pitting edema of lower extremities. Abdomen: Soft, nontender, non-distended, bowel sounds normal, no palpable organomegaly, no hernia, no palpable masses. Lower extremities: No palpable pedal edema. Lymphatic: no palpable lymph nodes in the neck, axillae, or groins. Musculoskeletal: normal gait and station, no clubbing, no cyanosis, no pitting edema. Skin: no rashes, no ulcers, no petechiae Neurological: Awake and alert and oriented x3. CN II-XII grossly intact. No focal motor or sensory deficit. Psychiatric: Good judgment, good insight, normal affect, normal thought process , cooperative, no depression, no anxiety. Results - Labs Laboratory Last Values WBC 2.0 X10^3/uL (4.5-11.0) L 05/20/18 09:16 RBC 4.98 X10^6/uL (4.5-5.9) 05/20/18 09:16 Hgb 13.8 g/dL (13.5-17.5) 05/20/18 09:16 Hct 41.5 % (41-53) 05/20/18 09:16 MCV 83.4 fL (80-100) 05/20/18 09:16 MCH 27.7 PG (26-34) 05/20/18 09:16 MCHC 33.3 % (30-36) 05/20/18 09:16 RDW 22.7 % (11.6-14.8) H 05/20/18 09:16 Plt Count 236 X10^3/uL (150-400) 05/20/18 09:16 Neut % (Auto) 42.8 % (50-75) L 05/20/18 09:16 Lymph % (Auto) 37.5 % (25-40) 05/20/18 09:16 [place] % (Auto) 16.4 % (3-14) H 05/20/18 09:16 Eos % (Auto) 1.5 % (2-4) L 05/20/18 09:16 Baso % (Auto) 1.8 % (0-2) 05/20/18 09:16 Neut # (Auto) 900 /uL (2412-8010) L 05/20/18 09:16 Lymph # (Auto) 800 /uL (8402-3641) L 05/20/18 09:16 [place]son # (Auto) 300 /uL (0-900) 05/20/18 09:16 Eos # (Auto) 0 /uL (0-450) 05/20/18 09:16 Baso # (Auto) 0 /uL (0-100) 05/20/18 09:16 Total Counted 100 03/25/18 08:38 Seg Neutrophils % 43.0 % (38-70) 03/25/18 08:38 Band Neutrophils % 1.0 % (3-7) L 03/25/18 08:38 Lymphocytes % (Manual) 32.0 % (25-45) 03/25/18 08:38 Atypical Lymphs % 2.0 % (-0) H 03/25/18 08:38 Monocytes % (Manual) 12.0 % (2-11) H 03/25/18 08:38 Eosinophils % (Manual) 7.0 % (2-4) H 03/25/18 08:38 Basophils % (Manual) 3.0 % (0-1) H 03/25/18 08:38 Metamyelocytes % Cancelled 05/06/18 09:10 Myelocytes % Cancelled 05/06/18 09:10 Promyelocytes % Cancelled 05/06/18 09:10 Blast Cells % Cancelled 05/06/18 09:10 Neutrophils # (Manual) 1496 /uL (8736-9689) L 03/25/18 08:38 Nucleated RBCs Cancelled 05/06/18 09:10 Differential Comment Cancelled 05/06/18 09:10 Hypersegmented Neuts Cancelled 05/06/18 09:10 Hypogranular Neuts Cancelled 05/06/18 09:10 Reactive Lymphocytes Cancelled 05/06/18 09:10 Plasma Cells Cancelled 05/06/18 09:10 Smudge Cells Cancelled 05/06/18 09:10 Other Cell Type Cancelled 05/06/18 09:10 Toxic Granulation Cancelled 05/06/18 09:10 Toxic Vacuolation Cancelled 05/06/18 09:10 Dohle Bodies Cancelled 05/06/18 09:10 Cyrus Rods Cancelled 05/06/18 09:10 WBC Morphology Comment Cancelled 05/06/18 09:10 Platelet Estimate Cancelled 05/06/18 09:10 Clumped Platelets Cancelled 05/06/18 09:10 Plt Morphology Comment Cancelled 05/06/18 09:10 RBC Morphology Not Reportable 05/20/18 09:16 Dimorphic RBCs Cancelled 05/06/18 09:10 Polychromasia Cancelled 05/06/18 09:10 Hypochromasia 1+ H 04/22/18 09:07 Poikilocytosis Cancelled 05/06/18 09:10 Basophilic Stippling Cancelled 05/06/18 09:10 Anisocytosis 2+ H 05/20/18 09:16 Microcytosis 1+ H 03/25/18 08:38 Macrocytosis Cancelled 05/06/18 09:10 Spherocytes Cancelled 05/06/18 09:10 Pappenheimer Bodies Cancelled 05/06/18 09:10 Sickle Cells Cancelled 05/06/18 09:10 Target Cells Cancelled 05/06/18 09:10 Tear Drop Cells Cancelled 05/06/18 09:10 Ovalocytes Cancelled 05/06/18 09:10 Stomatocytes Cancelled 05/06/18 09:10 Helmet Cells Cancelled 05/06/18 09:10 [place] Bodies Cancelled 05/06/18 09:10 [place] Rings Cancelled 05/06/18 09:10 [place] Cells Cancelled 05/06/18 09:10 Acanthocytes (Spur) Cancelled 05/06/18 09:10 Rouleaux Cancelled 05/06/18 09:10 Schistocytes Cancelled 05/06/18 09:10 ESR 102 MM/HR (0-15) H 03/03/18 12:29 Sodium 141 mmol/L (137-145) 05/20/18 09:16 Potassium 4.4 mmol/L (3.4-5.1) 05/20/18 09:16 Chloride 101 mmol/L (98-107) 05/20/18 09:16 Carbon Dioxide 30 mmol/L (22-32) 05/20/18 09:16 BUN 11 mg/dL (9-20) 05/20/18 09:16 Creatinine 0.70 mg/dL (0.66-1.25) 05/20/18 09:16 Estimated GFR > 60.0 mL/min (>60) 05/20/18 09:16 BUN/Creatinine Ratio 15.7 (6-22) 05/20/18 09:16 Glucose 90 mg/dL (70-100) 05/20/18 09:16 Uric Acid 2.0 mg/dL (3.5-8.5) L 05/06/18 09:10 Calcium 9.4 mg/dL (8.4-10.2) 05/20/18 09:16 Total Bilirubin 0.2 mg/dL (0.2-1.3) 05/20/18 09:16 AST 21 IU/L (17-59) 05/20/18 09:16 ALT 22 IU/L (21-72) 05/20/18 09:16 Alkaline Phosphatase 61 U/L (38-126) 05/20/18 09:16 Lactate Dehydrogenase 289 U/L (313-618) L 05/20/18 09:16 Total Protein 7.3 g/dL (6.3-8.2) 05/20/18 09:16 Albumin 4.4 g/dL (3.5-5.0) 05/20/18 09:16 Globulin 2.9 g/dL (1.7-4.1) 05/20/18 09:16 Albumin/Globulin Ratio 1.5 (1.0-2.8) 05/20/18 09:16 Qqxi-3-Vjjzkpleseklx 2.59 mg/L (< 2.52) H 03/03/18 12:29 Hep Bs Antigen Negative s/c (NEGATIVE) 03/03/18 12:29 Hep Bs Antibody Reactive (Nonreactive) A 03/03/18 12:29 Hep B Core Total Ab Nonreactive (Nonreactive) 03/03/18 12:29 Hep B Core IgM Ab Nonreactive (Nonreactive) 03/03/18 12:29 Hepatitis C Antibody Negative s/c (NEGATIVE) 03/03/18 12:29 HIV 1&2 Antibody Negative (NEGATIVE) 03/03/18 12:29 Assessment and Plan (1) Hodgkin lymphoma, nodular sclerosis Problem details: Presented with weight loss, weakness, and right neck and supraclavicular region enlarging masses. Biopsy of right neck mass 02/10/2018: nodular sclerosis classical Hodgkin's lymphoma. CT (02/01/2018, 02/08/2018) and PET/CT (03/03/2018) showed the disease confined to neck, chest above the diaphragm. Thus stage IIB with unfavorable risk factors (NCCN guideline: bulky > 10cm, ESR >=50, #luis sites >3, B symptoms). MUGA 03/10/2018: EF 62.6% Assessment: Patient has a stage IIB Hodgkin's lymphoma with unfavorable risk factors. ABVD treatment initiated March 11, 2018. PET-CT scan 04/28/2018 showed negative scan indicative of excellent response. Therefore, bleomycin has been discontinued starting from cycle 3. His ANC is 900 and is trending down. I will start prophylactic levaquin. Plan: 1. Ok to proceed to cycle 3 day 15 2. Continue Allopurinol 300 mg bid 3. Levaquin 500 mg x 10#, 1# daily 4. RTC in 2 weeks for C4D1 treatment, CBC, CMP, LDH (2) Depression Depression also generalized anxiety disorder. The depression most likely is related to the chemotherapy. However patient also reports outside factors which are contributing. He is seeing a counselor weekly. He is taking lorazepam at night for sleep alprazolam occasionally during the day however he is taking most days. Patient is very much concerned about the possible addiction to benzos or Xanax. As a result patient is taking Xanax only once a day. But he reports that Xanax is clearly helpful in terms of depression and anxiety. Plan: Patient is now with therapist every week Add effexor ER 37.5 mg daily Continue Xanax 4 mg daily Continue Ativan before going to bed. (3) Insomnia Cont lorazepam. I added Efexor ER today. Hopefully, it will be of some help. I have encourage him to talk with our [facility].
[2018-05-20 10:29] VITALS: BP 108/64; PULSE 74; RESP 18; TEMP 37; O2SAT 100
[2018-05-20] MEDS: DEXAMETHASONE 12 MG in SODIUM CHLORIDE 0.9% 50 ML 212 ML IV (11:15)
[2018-05-20] MEDS: SODIUM CHLORIDE 0.9% 100 ML 21 ML IV (11:15)
[2018-05-20] MEDS: ACETAMINOPHEN 325 MG TABLET 650 MG PO (11:19)
[2018-05-20] MEDS: LORazepam 0.5 MG TABLET PO (11:19)
[2018-05-20] MEDS: ONDANSETRON 16 MG in SODIUM CHLORIDE 0.9% 50 ML 232 ML IV (11:40)
[2018-05-20] MEDS: diphenhydrAMINE 25 MG TABLET PO (11:42)
[2018-05-20] MEDS: FOSAPREPITANT 150 MG in SODIUM CHLORIDE 0.9% 150 ML 300 ML IV (12:12)
[2018-05-20] MEDS: SODIUM CHLORIDE 0.9% IV (13:15)
[2018-05-20] MEDS: DOXORUBICIN HCL IV (13:15)
[2018-05-20] MEDS: VINBLASTINE IV (14:09)
[2018-05-20] MEDS: ISOOSMOTIC VEHICLE IV (14:09)
[2018-05-20] MEDS: DEXTROSE 5% IV (14:46)
[2018-05-20] MEDS: DACARBAZINE IV (14:46)
[2018-05-22 07:52] LABS: Beta-2-Microglobulin 1.54 mg/L (< 2.52)
--- NOTE | 2018-05-24 09:36 | ONC.NAV ---
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 Sent pt information on Cancer and Careers, as well as Department of Vocational Rehabilitation. Plan: Encouraged him to contact me should he have any additional questions or assistance needs.
--- NOTE | 2018-06-01 11:39 | PC.NURSE ---
Addendum entered by Lucero Urrutia R.N. 06/01/18 16:17: Escribed to [facility] per pts request Original Note: allopurinol refill request submitted to [employer] [employer] [facility].
--- NOTE | 2018-06-03 09:18 | P.PNONC_ITS ---
PN -Subjective Interval history: The patient presents for C4D1 therapy including dacarbazine, doxorubicin, and vinblastine. Bleomycin has been stopped starting from cycle 3. His major clinical complaint has been depression and anxiety. Our S[employer] LANG[employer]AGE INTERPRETER Carlee has been working very closely with him. Patient is also getting counselor visit every week. On exam today the patient reports he is feeling ?well?. No cough, fever, chills. States he has been sleeping better the last few weeks. Also having less anxiety. He does have some mild occasional nausea which he states is ?about a 2? however this does not impact his ability to eat. He feels as though his appetite is good, weight is stable. No new pain, no new lumps or bumps. No unexplained bleeding or bruising. No night sweats. Oncological History [place] Shrestha II is a 32 year old male without any past medical or surgical history. Patient reported a ?massive? weight loss of about 20 lb over maybe the past 2-3 months. In addition, patient has been losing energy and feeling tired. Patient also endorsed an early fullness after eating even though feeling hungry. He denies fever or chills. Patient reports some mild night sweats. Patient thought it might be due to thyroid problems as suggested by his friends. He was also reporting some cough especially at certain positions for example leaning forward and he was not able to lie on the right side. He was initially evaluated by [facility] on January 26, 2018. On physical examination, lymphadenopathy was noted to the right and supraclavicular region. CT soft tissue neck without contrast was obtained on February 01, 2018. The scan showed malignant appearing adenopathy bilaterally within the upper mediastinum, and the right neck inferiorly and extending into the right supraclavicular fossa; these then extends into the right axilla to a mild degree. A small degree of adenopathy is also present and the inferior aspect of the left supraclavicular fossa contiguous with the definite left-sided adenopathy present within the mediastinum. Note was made of significant compression of the lower margin of the trachea and the visualized portion of the right mainstream bronchus. February 08, 2018 CT scan of the chest abdomen and pelvis with contrast was performed. The results showed bilateral bulky neck base lymph nodes, right supraclavicular fossa, mediastinal and bilateral hilar lymphadenopathy concerning for lymphoma or metastatic disease, 1.1 cm retrocaval upper retroperitoneal lymphadenopathy concerning for lymphoma versus metastatic disease, 2 mm nonobstructing bilateral renal stones, 4 mm right middle lobe nodule and right sided trace pleural effusion chief. Patient thereafter was ref erred to Dr. Calvo for excisional biopsy. February 10, 2018, Dr. Calvo performed biopsy of right neck mass. The surgical pathology reported classic Hodgkin lymphoma. In the comment it says the architectural features of the lymphoma in these cervical lymph node biopsies favor a nodular sclerosis classical Hodgkin's lymphoma histologic subtype Patient underwent PET scan on March 03, 2018. The PET scan showed bilateral supraclavicular, bulky mediastinal, bilateral hilar, and right axillary lymphadenopathy consistent with lymphoma. No evidence of luis disease below the diaphragm, trace right pleural effusion and pericardial effusion, right maxillary sinusitis, and some non obstructive renal calculi bilaterally. And testing for hepatitis B, hepatitis C, HIV were all nonreactive. Omer the scan is scheduled for March 10. Patient underwent port placement on February 24, [address] Calvo. He was started on ABVD cycle 1 day 1 on 03/11/2018. April 28, 2018 patient underwent nuclear medicine PET CT scan for restaging. Overall impression market response to treatment with significant regression of disease throughout. From cycle 3 (05/06/2018), bleomycin was stopped. He continued on AVD. - Patient Self-Reported Symptoms SR Constitution: Weight loss/gain (weight gain.) SR ears, nose, mouth, throat issues: Swollen glands (shrinking right supraclavicular fossa) SR respiratory issues: Cough (resolved. ) SR Gastrointestinal issues: Poor or no appetite (Almost normal appetite now.) SR Hematologic issues: Swollen lymph nodes (becoming samller) Home Medications and Allergies Home Medications Medication Instructions Recorded Confirmed Type multivitamin tablet 1 tab PO DAILY 02/09/18 06/03/18 History ondansetron 4 mg PO QID PRN #10 tab 02/10/18 06/03/18 Rx lidocaine-prilocaine See Rx Instructions .ROUTE 02/24/18 06/03/18 Rx .COMPLEX #30 gram alprazolam 1 mg PO BID-TID PRN #60 tab 05/10/18 06/03/18 Rx lorazepam [Ativan] 1 mg PO BEDTIME PRN #60 tab 05/13/18 06/03/18 Rx levofloxacin [Levaquin] 500 mg PO DAILY #10 tab 05/20/18 06/03/18 Rx venlafaxine [Effexor XR] 37.5 mg PO DAILY #14 cap 05/20/18 06/03/18 Rx allopurinol [Zyloprim] 300 mg PO BID #60 tab 06/01/18 06/03/18 Rx Allergies Allergy/AdvReac Type Severity Reaction Status Date / Time No Known Drug Allergies Allergy Verified 02/26/18 08:22 Exam - Constitutional positive no acute distress - Routine Neck Exam Present: supple. Absent: lymphadenopathy - Routine Chest/Breast/Axilla Exam Axillae: Absent: lymphadenopathy, mass, tenderness - Routine Respiratory Exam Present: Clear to auscultation bilaterally. Absent: rales, rhonchi, wheezes - Routine Cardiovascular Exam Present: RRR, S1, S2. Absent: murmur, gallop, rubs, JVD - Routine Abdominal Exam Present: soft, normoactive bowel sounds. Absent: tenderness, distended, organomegaly - Routine Extremities Exam Absent: edema, calf tenderness - Routine Skin Exam Present: intact, normal turgor. Absent: petechiae, rash - Routine Neurological Exam Present: alert, oriented X3 - Routine Psychiatric Exam Present: normal affect Results - Labs Laboratory Last Values WBC 2.0 X10^3/uL (4.5-11.0) L 05/20/18 09:16 RBC 4.98 X10^6/uL (4.5-5.9) 05/20/18 09:16 Hgb 13.8 g/dL (13.5-17.5) 05/20/18 09:16 Hct 41.5 % (41-53) 05/20/18 09:16 MCV 83.4 fL (80-100) 05/20/18 09:16 MCH 27.7 PG (26-34) 05/20/18 09:16 MCHC 33.3 % (30-36) 05/20/18 09:16 RDW 22.7 % (11.6-14.8) H 05/20/18 09:16 Plt Count 236 X10^3/uL (150-400) 05/20/18 09:16 Neut % (Auto) 42.8 % (50-75) L 05/20/18 09:16 Lymph % (Auto) 37.5 % (25-40) 05/20/18 09:16 [place] % (Auto) 16.4 % (3-14) H 05/20/18 09:16 Eos % (Auto) 1.5 % (2-4) L 05/20/18 09:16 Baso % (Auto) 1.8 % (0-2) 05/20/18 09:16 Neut # (Auto) 900 /uL (0707-2890) L 05/20/18 09:16 Lymph # (Auto) 800 /uL (0985-6120) L 05/20/18 09:16 [place] # (Auto) 300 /uL (0-900) 05/20/18 09:16 Eos # (Auto) 0 /uL (0-450) 05/20/18 09:16 Baso # (Auto) 0 /uL (0-100) 05/20/18 09:16 Total Counted 100 03/25/18 08:38 Seg Neutrophils % 43.0 % (38-70) 03/25/18 08:38 Band Neutrophils % 1.0 % (3-7) L 03/25/18 08:38 Lymphocytes % (Manual) 32.0 % (25-45) 03/25/18 08:38 Atypical Lymphs % 2.0 % (-0) H 03/25/18 08:38 Monocytes % (Manual) 12.0 % (2-11) H 03/25/18 08:38 Eosinophils % (Manual) 7.0 % (2-4) H 03/25/18 08:38 Basophils % (Manual) 3.0 % (0-1) H 03/25/18 08:38 Metamyelocytes % Cancelled 05/06/18 09:10 Myelocytes % Cancelled 05/06/18 09:10 Promyelocytes % Cancelled 05/06/18 09:10 Blast Cells % Cancelled 05/06/18 09:10 Neutrophils # (Manual) 1496 /uL (0298-5533) L 03/25/18 08:38 Nucleated RBCs Cancelled 05/06/18 09:10 Differential Comment Cancelled 05/06/18 09:10 Hypersegmented Neuts Cancelled 05/06/18 09:10 Hypogranular Neuts Cancelled 05/06/18 09:10 Reactive Lymphocytes Cancelled 05/06/18 09:10 Plasma Cells Cancelled 05/06/18 09:10 Smudge Cells Cancelled 05/06/18 09:10 Other Cell Type Cancelled 05/06/18 09:10 Toxic Granulation Cancelled 05/06/18 09:10 Toxic Vacuolation Cancelled 05/06/18 09:10 Dohle Bodies Cancelled 05/06/18 09:10 Cyrus Rods Cancelled 05/06/18 09:10 WBC Morphology Comment Cancelled 05/06/18 09:10 Platelet Estimate Cancelled 05/06/18 09:10 Clumped Platelets Cancelled 05/06/18 09:10 Plt Morphology Comment Cancelled 05/06/18 09:10 RBC Morphology Not Reportable 05/20/18 09:16 Dimorphic RBCs Cancelled 05/06/18 09:10 Polychromasia Cancelled 05/06/18 09:10 Hypochromasia 1+ H 04/22/18 09:07 Poikilocytosis Cancelled 05/06/18 09:10 Basophilic Stippling Cancelled 05/06/18 09:10 Anisocytosis 2+ H 05/20/18 09:16 Microcytosis 1+ H 03/25/18 08:38 Macrocytosis Cancelled 05/06/18 09:10 Spherocytes Cancelled 05/06/18 09:10 Pappenheimer Bodies Cancelled 05/06/18 09:10 Sickle Cells Cancelled 05/06/18 09:10 Target Cells Cancelled 05/06/18 09:10 Tear Drop Cells Cancelled 05/06/18 09:10 Ovalocytes Cancelled 05/06/18 09:10 Stomatocytes Cancelled 05/06/18 09:10 Helmet Cells Cancelled 05/06/18 09:10 [place] Bodies Cancelled 05/06/18 09:10 [place] Rings Cancelled 05/06/18 09:10 Ramone Cells Cancelled 05/06/18 09:10 Acanthocytes (Spur) Cancelled 05/06/18 09:10 Rouleaux Cancelled 05/06/18 09:10 Schistocytes Cancelled 05/06/18 09:10 ESR 102 MM/HR (0-15) H 03/03/18 12:29 Sodium 141 mmol/L (137-145) 05/20/18 09:16 Potassium 4.4 mmol/L (3.4-5.1) 05/20/18 09:16 Chloride 101 mmol/L (98-107) 05/20/18 09:16 Carbon Dioxide 30 mmol/L (22-32) 05/20/18 09:16 BUN 11 mg/dL (9-20) 05/20/18 09:16 Creatinine 0.70 mg/dL (0.66-1.25) 05/20/18 09:16 Estimated GFR > 60.0 mL/min (>60) 05/20/18 09:16 BUN/Creatinine Ratio 15.7 (6-22) 05/20/18 09:16 Glucose 90 mg/dL (70-100) 05/20/18 09:16 Uric Acid 2.0 mg/dL (3.5-8.5) L 05/06/18 09:10 Calcium 9.4 mg/dL (8.4-10.2) 05/20/18 09:16 Total Bilirubin 0.2 mg/dL (0.2-1.3) 05/20/18 09:16 AST 21 IU/L (17-59) 05/20/18 09:16 ALT 22 IU/L (21-72) 05/20/18 09:16 Alkaline Phosphatase 61 U/L (38-126) 05/20/18 09:16 Lactate Dehydrogenase 289 U/L (313-618) L 05/20/18 09:16 Total Protein 7.3 g/dL (6.3-8.2) 05/20/18 09:16 Albumin 4.4 g/dL (3.5-5.0) 05/20/18 09:16 Globulin 2.9 g/dL (1.7-4.1) 05/20/18 09:16 Albumin/Globulin Ratio 1.5 (1.0-2.8) 05/20/18 09:16 Ccbj-2-[id number] 1.54 mg/L (< 2.52) 05/20/18 09:16 Hep Bs Antigen Negative s/c (NEGATIVE) 03/03/18 12:29 Hep Bs Antibody Reactive (Nonreactive) A 03/03/18 12:29 Hep B Core Total Ab Nonreactive (Nonreactive) 03/03/18 12:29 Hep B Core IgM Ab Nonreactive (Nonreactive) 03/03/18 12:29 Hepatitis C Antibody Negative s/c (NEGATIVE) 03/03/18 12:29 HIV 1&2 Antibody Negative (NEGATIVE) 03/03/18 12:29 Assessment and Plan (1) Hodgkin lymphoma, nodular sclerosis Problem details: Presented with weight loss, weakness, and right neck and supraclavicular region enlarging masses. Biopsy of right neck mass 02/10/2018: nodular sclerosis classical Hodgkin's lymphoma. CT (02/01/2018, 02/08/2018) and PET/CT (03/03/2018) showed the disease confined to neck, chest above the diaphragm. Thus stage IIB with unfavorable risk factors (NCCN guideline: bulky >10cm, ESR >=50, #luis sites >3, B symptoms). MUGA 03/10/2018: EF 62.6% Assessment: Patient has a stage IIB Hodgkin's lymphoma with unfavorable risk factors. ABVD treatment initiated March 11, 2018. PET-CT scan 04/28/2018 showed negative scan indicative of excellent response. Therefore, bleomycin has been discontinued starting from cycle 3. No red flags on exam today overall the patient is feeling well without significant adverse effects. CBC demonstrates a white count of 2.1 ANC 900 hemoglobin 14.3 hematocrit 42.3 platelets 226. We will move forward with cycle 4 day 1 today. Previous cycle it is noted patient did become neutropenic he was placed on prophylactic antibiotics, I expect once again prior to next cycle he will require prophalytic antibiotic coverage. Plan: 1. Ok to proceed to cycle 4 day 1 2. Continue Allopurinol 300 mg bid 3. Levaquin 500 mg x 10#, 1# daily 4. RTC in 2 weeks for C4D15 treatment, CBC, CMP, LDH (2) Depression Depression also generalized anxiety disorder. The depression most likely is related to the chemotherapy. However patient also reports outside factors which are contributing. He is seeing a counselor weekly. He is taking lorazepam at night for sleep alprazolam occasionally during the day however he is taking most days. Patient is very much concerned about the possible addiction to benzos or Xanax. As a result patient is taking Xanax only once a day. But he reports that Xanax is clearly helpful in terms of depression and anxiety. On exam today pt reports his mood is much better and his anxiety is not as bed. Also sleeping better. Plan: Patient is now with therapist every week Add effexor ER 37.5 mg daily Continue Xanax 4 mg daily, pt has been instructed to slowly beging to wean off Continue Ativan before going to bed, pt has been instructed to slowly wean off. (3) Insomnia Improved. Cont meeting with counselor, cont daily effexor and as needed xanax during the day, ativan as needed at night for sleep
[2018-06-03 09:42] VITALS: BP 134/98; PULSE 88; RESP 18; TEMP 36.8; O2SAT 100
[2018-06-03 09:44] LABS: Add Manual Diff / Slide Review NO; Basophils Absolute Auto 100 /uL (0-100); Basophils Percent Auto 2.9 % (0-2); Eosinophils Absolute Auto 0 /uL (0-450); Eosinophils Percent Auto 1.9 % (2-4); Hematocrit 42.3 % (41-53); Hemoglobin 14.3 g/dL (13.5-17.5); Lymphocytes Absolute Auto 900 /uL (1100-4500); Lymphocytes Percent Auto 43.2 % (25-40); Mean Corpuscular HGB Conc 33.8 % (30-36); Mean Corpuscular Hemoglobin 28.3 PG (26-34); Mean Corpuscular Volume 83.6 fL (80-100); Monocytes Absolute Auto 300 /uL (0-900); Monocytes Percent Auto 16.3 % (3-14); Neutrophils Absolute Auto 700 /uL (1500-7000); Neutrophils Percent Auto 35.7 % (50-75); Platelet Count 226 X10^3/uL (150-400); Red Blood Cell Count 5.06 X10^6/uL (4.5-5.9); White Blood Cell Count 2.1 X10^3/uL (4.5-11.0)
[2018-06-03 09:57] LABS: Alanine Aminotransferase 30 IU/L (21-72); Albumin 4.4 g/dL (3.5-5.0); Albumin Globulin Ratio 1.5 (1.0-2.8); Alkaline Phosphatase 58 U/L (38-126); Aspartate Aminotransferase 23 IU/L (17-59); BUN Creatinine Ratio 16.7 (6-22); Bilirubin Total 0.3 mg/dL (0.2-1.3); Blood Urea Nitrogen 10 mg/dL (9-20); Calcium 9.2 mg/dL (8.4-10.2); Carbon Dioxide 28 mmol/L (22-32); Chloride 101 mmol/L (98-107); Estimated Glomerular Filt Rate > 60.0 mL/min (>60); Globulin 2.9 g/dL (1.7-4.1); Glucose 94 mg/dL (70-100); HEMOLYSIS < 15 (0-50); Lactate Dehydrogenase 286 U/L (313-618); Potassium 3.8 mmol/L (3.4-5.1); Sodium 138 mmol/L (137-145); Total Protein 7.3 g/dL (6.3-8.2)
[2018-06-03] MEDS: ACETAMINOPHEN 325 MG TABLET 650 MG PO (10:25)
[2018-06-03 10:26] LABS: Anisocytosis 2+; Poikilocytosis 1+
[2018-06-03] MEDS: SODIUM CHLORIDE 0.9% 100 ML 21 ML IV (10:26)
[2018-06-03] MEDS: diphenhydrAMINE 25 MG TABLET PO (10:26)
[2018-06-03] MEDS: LORazepam 0.5 MG TABLET PO (10:26)
[2018-06-03] MEDS: DEXAMETHASONE 12 MG in SODIUM CHLORIDE 0.9% 50 ML 212 ML IV (10:26)
[2018-06-03] MEDS: ONDANSETRON 16 MG in SODIUM CHLORIDE 0.9% 50 ML 232 ML IV (10:54)
[2018-06-03] MEDS: FOSAPREPITANT 150 MG in SODIUM CHLORIDE 0.9% 150 ML 300 ML IV (11:15)
[2018-06-03] MEDS: DOXORUBICIN HCL IV (12:16)
[2018-06-03] MEDS: SODIUM CHLORIDE 0.9% IV (12:16)
[2018-06-03] MEDS: VINBLASTINE IV (13:07)
[2018-06-03] MEDS: ISOOSMOTIC VEHICLE IV (13:07)
[2018-06-03] MEDS: DEXTROSE 5% IV (13:46)
[2018-06-03] MEDS: DACARBAZINE IV (13:46)
[2018-06-10 11:05] LABS: Add Manual Diff / Slide Review NO; Basophils Absolute Auto 100 /uL (0-100); Eosinophils Absolute Auto 0 /uL (0-450); Eosinophils Percent Auto 1.5 % (2-4); Hematocrit 41.6 % (41-53); Hemoglobin 14.2 g/dL (13.5-17.5); Lymphocytes Absolute Auto 800 /uL (1100-4500); Mean Corpuscular HGB Conc 34.1 % (30-36); Mean Corpuscular Hemoglobin 28.4 PG (26-34); Mean Corpuscular Volume 83.2 fL (80-100); Monocytes Absolute Auto 100 /uL (0-900); Monocytes Percent Auto 3.9 % (3-14); Neutrophils Absolute Auto 1800 /uL (1500-7000); Neutrophils Percent Auto 63.6 % (50-75); Platelet Count 200 X10^3/uL (150-400); Red Cell Distribution Width 20.3 % (11.6-14.8); White Blood Cell Count 2.8 X10^3/uL (4.5-11.0)
[2018-06-10 11:27] LABS: Anisocytosis 2+; Poikilocytosis 1+
--- NOTE | 2018-06-11 08:23 | PC.NURSE ---
labs for 06/10 are stable when compared to 06/03. WBC/ANC are 2.11/1799. Provider visit on 06/17 with labs prior to tx
--- NOTE | 2018-06-17 09:09 | P.PNONC_ITS ---
PN -Subjective Interval history: Diagnosis: Nodular sclerosis classical Hodgkin's lymphoma, IIB. ABVD treatment initiated March 11, 2018. PET-CT April 28, 2018 demonstrated excellent response therefore bleomycin was discontinued. The patient presents for C4D15 of treatment which currently includes dacarbazine, doxorubicin, and vinblastine. Since previous visit patient states ?I am feeling better?. Specifically he notes increased appetite, increased energy. He is still having difficulty sleeping however slept quite good last night. He is taking lorazepam infrequently. Denies cough, fever, chills. No nausea. No chest pain. No shortness of breath. No new pain, no new lumps or bumps. No unexplained bleeding or bruising. No issues with bladder or bowels. Mood is stable, pt continues to meet with a therapist/counselor. Anxiety is better. Oncological History [place] Shrestha II is a 32 year old male without any past medical or surgical history. Patient reported a ?massive? weight loss of about 20 lb over maybe the past 2-3 months. In addition, patient has been losing energy and feeling tired. Patient also endorsed an early fullness after eating even though feeling hungry. He denies fever or chills. Patient reports some mild night sweats. Patient thought it might be due to thyroid problems as suggested by his friends. He was also reporting some cough especially at certain positions for example leaning forward and he was not able to lie on the right side. He was initially evaluated by [facility] on January 26, 2018. On physical examination, lymphadenopathy was noted to the right and supraclavicular region. CT soft tissue neck without contrast was obtained on February 01, 2018. The scan showed malignant appearing adenopathy bilaterally within the upper mediastinum, and the right neck inferiorly and extending into the right supraclavicular fossa; these then extends into the right axilla to a mild degree. A small degree of adenopathy is also present and the inferior aspect of the left supraclavicular fossa contiguous with the definite left-sided adenopathy present within the mediastinum. Note was made of significant compression of the lower margin of the trachea and the visualized portion of the right mainstream bronchus. February 08, 2018 CT scan of the chest abdomen and pelvis with contrast was performed. The results showed bilateral bulky neck base lymph nodes, right supraclavicular fossa, mediastinal and bilateral hilar lymphadenopathy concerning for lymphoma or metastatic disease, 1.1 cm retrocaval upper retroperitoneal lymphadenopathy concerning for lymphoma versus metastatic disease, 2 mm nonobstructing bilateral renal stones, 4 mm right middle lobe nodule and right sided trace pleural effusion chief. Patient thereafter was referred to Dr. Calvo for excisional biopsy. February 10, 2018, Dr. Calvo performed biopsy of right neck mass. The surgical pathology reported classic Hodgkin lymphoma. In the comment it says the architectural features of the lymphoma in these cervical lymph node biopsies favor a nodular sclerosis classical Hodgkin's lymphoma histologic subtype Patient underwent PET scan on March 03, 2018. The PET scan showed bilateral supraclavicular, bulky mediastinal, bilateral hilar, and right axillary lymphadenopathy consistent with lymphoma. No evidence of luis disease below the diaphragm, trace right pleural effusion and pericardial effusion, right maxillary sinusitis, and some non obstructive renal calculi bilaterally. And testing for hepatitis B, hepatitis C, HIV were all nonreactive. Omer the scan is scheduled for March 10. Patient underwent port placement on February 24, [address] Calvo. He was started on ABVD cycle 1 day 1 on 03/11/2018. April 28, 2018 patient underwent nuclear medicine PET CT scan for restaging. Overall impression market response to treatment with significant regression of disease throughout. From cycle 3 (05/06/2018), bleomycin was stopped. He continued on AVD. - Patient Self-Reported Symptoms SR Constitution: Weight loss/gain (weight gain.) SR ears, nose, mouth, throat issues: Swollen glands (shrinking right supraclavicular fossa) SR respiratory issues: Cough (resolved. ) SR Gastrointestinal issues: Poor or no appetite (Almost normal appetite now.) SR Hematologic issues: Swollen lymph nodes (becoming samller) Home Medications and Allergies Home Medications Medication Instructions Recorded Confirmed Type multivitamin tablet 1 tab PO DAILY 02/09/18 06/03/18 History lidocaine-prilocaine See Rx Instructions .ROUTE 02/24/18 06/03/18 Rx .COMPLEX #30 gram alprazolam 1 mg PO BID-TID PRN #60 tab 05/10/18 06/03/18 Rx allopurinol [Zyloprim] 300 mg PO BID #60 tab 06/01/18 06/03/18 Rx levofloxacin 500 mg PO DAILY #10 tab 02/21/19 Rx lorazepam 1 mg PO BEDTIME PRN #30 tab 06/17/18 Rx Allergies Allergy/AdvReac Type Severity Reaction Status Date / Time No Known Drug Allergies Allergy Verified 02/26/18 08:22 Exam - Constitutional positive no acute distress, positive thin - Routine HEENT Exam Eye: Present: conjunctivae pink. Absent: conjunctival icterus, scleral injection ENT: Present: mucous membranes moist, oropharynx clear - Routine Neck Exam Present: supple. Absent: lymphadenopathy - Routine Respiratory Exam Present: Clear to auscultation bilaterally. Absent: rales, rhonchi, wheezes - Routine Cardiovascular Exam Present: RRR, S1, S2. Absent: murmur, gallop, rubs, JVD - Routine Abdominal Exam Present: soft, normoactive bowel sounds. Absent: tenderness, distended, organomegaly - Routine Extremities Exam Absent: edema, calf tenderness - Routine Skin Exam Present: intact, normal turgor. Absent: petechiae, rash - Routine Neurological Exam Present: alert, oriented X3 - Routine Psychiatric Exam Present: normal affect Results - Labs Laboratory Last Values WBC 2.8 X10^3/uL (4.5-11.0) L 06/10/18 10:53 RBC 5.00 X10^6/uL (4.5-5.9) 06/10/18 10:53 Hgb 14.2 g/dL (13.5-17.5) 06/10/18 10:53 Hct 41.6 % (41-53) 06/10/18 10:53 MCV 83.2 fL (80-100) 06/10/18 10:53 MCH 28.4 PG (26-34) 06/10/18 10:53 MCHC 34.1 % (30-36) 06/10/18 10:53 RDW 20.3 % (11.6-14.8) H 06/10/18 10:53 Plt Count 200 X10^3/uL (150-400) 06/10/18 10:53 Neut % (Auto) 63.6 % (50-75) 06/10/18 10:53 Lymph % (Auto) 29.0 % (25-40) 06/10/18 10:53 [place] % (Auto) 3.9 % (3-14) 06/10/18 10:53 Eos % (Auto) 1.5 % (2-4) L 06/10/18 10:53 Baso % (Auto) 2.0 % (0-2) 06/10/18 10:53 Neut # (Auto) 1800 /uL (1075-2823) 06/10/18 10:53 Lymph # (Auto) 800 /uL (5944-7601) L 06/10/18 10:53 [place] # (Auto) 100 /uL (0-900) 06/10/18 10:53 Eos # (Auto) 0 /uL (0-450) 06/10/18 10:53 Baso # (Auto) 100 /uL (0-100) 06/10/18 10:53 Total Counted 100 03/25/18 08:38 Seg Neutrophils % 43.0 % (38-70) 03/25/18 08:38 Band Neutrophils % 1.0 % (3-7) L 03/25/18 08:38 Lymphocytes % (Manual) 32.0 % (25-45) 03/25/18 08:38 Atypical Lymphs % 2.0 % (-0) H 03/25/18 08:38 Monocytes % (Manual) 12.0 % (2-11) H 03/25/18 08:38 Eosinophils % (Manual) 7.0 % (2-4) H 03/25/18 08:38 Basophils % (Manual) 3.0 % (0-1) H 03/25/18 08:38 Metamyelocytes % Cancelled 05/06/18 09:10 Myelocytes % Cancelled 05/06/18 09:10 Promyelocytes % Cancelled 05/06/18 09:10 Blast Cells % Cancelled 05/06/18 09:10 Neutrophils # (Manual) 1496 /uL (0361-3749) L 03/25/18 08:38 Nucleated RBCs Cancelled 05/06/18 09:10 Differential Comment Cancelled 05/06/18 09:10 Hypersegmented Neuts Cancelled 05/06/18 09:10 Hypogranular Neuts Cancelled 05/06/18 09:10 Reactive Lymphocytes Cancelled 05/06/18 09:10 Plasma Cells Cancelled 05/06/18 09:10 Smudge Cells Cancelled 05/06/18 09:10 Other Cell Type Cancelled 05/06/18 09:10 Toxic Granulation Cancelled 05/06/18 09:10 Toxic Vacuolation Cancelled 05/06/18 09:10 Dohle Bodies Cancelled 05/06/18 09:10 Cyrus Rods Cancelled 05/06/18 09:10 WBC Morphology Comment Cancelled 05/06/18 09:10 Platelet Estimate Cancelled 05/06/18 09:10 Clumped Platelets Cancelled 05/06/18 09:10 Plt Morphology Comment Cancelled 05/06/18 09:10 RBC Morphology Not Reportable 06/10/18 10:53 Dimorphic RBCs Cancelled 05/06/18 09:10 Polychromasia Cancelled 05/06/18 09:10 Hypochromasia 1+ H 04/22/18 09:07 Poikilocytosis 1+ H 06/10/18 10:53 Basophilic Stippling Cancelled 05/06/18 09:10 Anisocytosis 2+ H 06/10/18 10:53 Microcytosis 1+ H 03/25/18 08:38 Macrocytosis Cancelled 05/06/18 09:10 Spherocytes Cancelled 05/06/18 09:10 Pappenheimer Bodies Cancelled 05/06/18 09:10 Sickle Cells Cancelled 05/06/18 09:10 Target Cells Cancelled 05/06/18 09:10 Tear Drop Cells Cancelled 05/06/18 09:10 Ovalocytes Cancelled 05/06/18 09:10 Stomatocytes Cancelled 05/06/18 09:10 Helmet Cells Cancelled 05/06/18 09:10 [place] Bodies Cancelled 05/06/18 09:10 [place] Rings Cancelled 05/06/18 09:10 [place]one Cells Cancelled 05/06/18 09:10 Acanthocytes (Spur) Cancelled 05/06/18 09:10 Rouleaux Cancelled 05/06/18 09:10 Schistocytes Cancelled 05/06/18 09:10 ESR 102 MM/HR (0-15) H 03/03/18 12:29 Sodium 138 mmol/L (137-145) 06/03/18 09:20 Potassium 3.8 mmol/L (3.4-5.1) 06/03/18 09:20 Chloride 101 mmol/L (98-107) 06/03/18 09:20 Carbon Dioxide 28 mmol/L (22-32) 06/03/18 09:20 BUN 10 mg/dL (9-20) 06/03/18 09:20 Creatinine 0.60 mg/dL (0.66-1.25) L 06/03/18 09:20 Estimated GFR > 60.0 mL/min (>60) 06/03/18 09:20 BUN/Creatinine Ratio 16.7 (6-22) 06/03/18 09:20 Glucose 94 mg/dL (70-100) 06/03/18 09:20 Uric Acid 2.0 mg/dL (3.5-8.5) L 05/06/18 09:10 Calcium 9.2 mg/dL (8.4-10.2) 06/03/18 09:20 Total Bilirubin 0.3 mg/dL (0.2-1.3) 06/03/18 09:20 AST 23 IU/L (17-59) 06/03/18 09:20 ALT 30 IU/L (21-72) 06/03/18 09:20 Alkaline Phosphatase 58 U/L (38-126) 06/03/18 09:20 Lactate Dehydrogenase 286 U/L (313-618) L 06/03/18 09:20 Total Protein 7.3 g/dL (6.3-8.2) 06/03/18 09:20 Albumin 4.4 g/dL (3.5-5.0) 06/03/18 09:20 Globulin 2.9 g/dL (1.7-4.1) 06/03/18 09:20 Albumin/Globulin Ratio 1.5 (1.0-2.8) 06/03/18 09:20 Jnvk-[id number] 1.54 mg/L (< 2.52) 05/20/18 09:16 Hep Bs Antigen Negative s/c (NEGATIVE) 03/03/18 12:29 Hep Bs Antibody Reactive (Nonreactive) A 03/03/18 12:29 Hep B Core Total Ab Nonreactive (Nonreactive) 03/03/18 12:29 Hep B Core IgM Ab Nonreactive (Nonreactive) 03/03/18 12:29 Hepatitis C Antibody Negative s/c (NEGATIVE) 03/03/18 12:29 HIV 1&2 Antibody Negative (NEGATIVE) 03/03/18 12:29 Assessment and Plan (1) Hodgkin lymphoma, nodular sclerosis Problem details: Presented with weight loss, weakness, and right neck and supraclavicular region enlarging masses. Biopsy of right neck mass 02/10/2018: nodular sclerosis classical Hodgkin's lymphoma. CT (02/01/2018, 02/08/2018) and PET/CT (03/03/2018) showed the disease confined to neck, chest above the diaphragm. Thus stage IIB with unfavorable risk factors (NCCN guideline: bulky >10cm, ESR >=50, #luis sites >3, B symptoms). MUGA 03/10/2018: EF 62.6% Assessment: Patient has a stage IIB Hodgkin's lymphoma with unfavorable risk factors. ABVD treatment initiated March 11, 2018. PET-CT scan 04/28/2018 showed negative scan indicative of excellent response. Therefore, bleomycin has been discontinued starting from cycle 3. Pt presents today for C4D15. He is feeling quite well, tolerating chemotherapy at this point without significant adverse effects. In fact he is beginning to feel better with improved energy and appetite CBC today demonstrates neutropenia with white count 2.2 ANC 600. This was discussed with Dr. Conner also reviewed on NCCN, recommendation is without fever or S&S of acute illness cont with treatment. Therefore we will proceed with treatment today, no dose reductions indicated. However I will start the patient on prophylactic levofloxacin 500 mg once daily. I will also have him come back in 1 week for a brief evaluation as well as CBC. Patient understands he is to stay way from large crowds, sick people. He is to call the clinic or go directly to emergency department for any fever, chills, acute change in condition. Plan: 1. Ok to proceed to cycle 4 day 15 2. Continue Allopurinol 300 mg bid 3. Levaquin 500 mg x 10#, 1# daily 4. RTC in 1 week for eval, CBC 5. Return to clinic in 2 weeks for C5D1, provider visit, cbc, cmp, uric acid, LDH (2) Depression Depression also generalized anxiety disorder. The depression most likely is related to the chemotherapy. However patient also reports outside factors which are contributing. He is seeing a counselor weekly. He is taking lorazepam at night for sleep alprazolam occasionally during the day however he is taking most days. Patient is very much concerned about the possible addiction to benzos or Xanax. As a result patient is taking Xanax only once a day. But he reports that Xanax is clearly helpful in terms of depression and anxiety. On exam today pt reports his mood is much better and his anxiety is not as bad. Also sleeping better. On previous visits x 2 we discussed SSRI/SSNI, both of which he has declined. Plan: Cont with therapist every week Continue Xanax PRN, pt has been instructed to slowly wean off and he has been compliant with this request. Continue Ativan before going to bed, pt has been instructed to slowly wean off also compliant with this as well. (3) Insomnia Improved. Cont meeting with counselor, cont daily effexor and as needed xanax during the day, ativan as needed at night for sleep. Pt is weaning off both
[2018-06-17 09:30] VITALS: BP 120/73; PULSE 113; RESP 18; TEMP 36.7; O2SAT 99
[2018-06-17 09:34] LABS: Add Manual Diff / Slide Review NO; Basophils Absolute Auto 100 /uL (0-100); Eosinophils Absolute Auto 100 /uL (0-450); Eosinophils Percent Auto 3.3 % (2-4); Hematocrit 43.7 % (41-53); Hemoglobin 14.7 g/dL (13.5-17.5); Lymphocytes Absolute Auto 1000 /uL (1100-4500); Lymphocytes Percent Auto 46.5 % (25-40); Mean Corpuscular HGB Conc 33.5 % (30-36); Mean Corpuscular Hemoglobin 28.8 PG (26-34); Mean Corpuscular Volume 85.8 fL (80-100); Monocytes Absolute Auto 400 /uL (0-900); Monocytes Percent Auto 19.8 % (3-14); Neutrophils Absolute Auto 600 /uL (1500-7000); Neutrophils Percent Auto 27.4 % (50-75); Platelet Count 227 X10^3/uL (150-400); Red Blood Cell Count 5.09 X10^6/uL (4.5-5.9); White Blood Cell Count 2.2 X10^3/uL (4.5-11.0)
[2018-06-17 09:43] LABS: Alanine Aminotransferase 28 IU/L (21-72); Albumin 4.5 g/dL (3.5-5.0); Albumin Globulin Ratio 1.5 (1.0-2.8); Alkaline Phosphatase 57 U/L (38-126); Aspartate Aminotransferase 24 IU/L (17-59); BUN Creatinine Ratio 17.5 (6-22); Bilirubin Total 0.3 mg/dL (0.2-1.3); Blood Urea Nitrogen 14 mg/dL (9-20); Calcium 9.3 mg/dL (8.4-10.2); Carbon Dioxide 29 mmol/L (22-32); Chloride 102 mmol/L (98-107); Estimated Glomerular Filt Rate > 60.0 mL/min (>60); Glucose 89 mg/dL (70-100); HEMOLYSIS < 15 (0-50); Potassium 4.1 mmol/L (3.4-5.1); Sodium 139 mmol/L (137-145); Total Protein 7.5 g/dL (6.3-8.2); Uric Acid 2.3 mg/dL (3.5-8.5)
[2018-06-17] MEDS: diphenhydrAMINE 25 MG TABLET PO (10:32)
[2018-06-17] MEDS: LORazepam 0.5 MG TABLET PO (10:32)
[2018-06-17] MEDS: ACETAMINOPHEN 325 MG TABLET 650 MG PO (10:32)
[2018-06-17] MEDS: DEXAMETHASONE 12 MG in SODIUM CHLORIDE 0.9% 50 ML 212 ML IV (10:36)
[2018-06-17] MEDS: FOSAPREPITANT 150 MG in SODIUM CHLORIDE 0.9% 150 ML 300 ML IV (11:08)
[2018-06-17] MEDS: ONDANSETRON 16 MG in SODIUM CHLORIDE 0.9% 50 ML 232 ML IV (11:52)
[2018-06-17] MEDS: SODIUM CHLORIDE 0.9% 100 ML 21 ML IV (12:17)
[2018-06-17] MEDS: DOXORUBICIN HCL IV (12:30)
[2018-06-17] MEDS: SODIUM CHLORIDE 0.9% IV (12:30)
[2018-06-17] MEDS: VINBLASTINE IV (13:21)
[2018-06-17] MEDS: ISOOSMOTIC VEHICLE IV (13:21)
[2018-06-17] MEDS: DEXTROSE 5% IV (13:43)
[2018-06-17] MEDS: DACARBAZINE IV (13:43)
[2018-06-22 09:04] LABS: Add Manual Diff / Slide Review NO; Basophils Absolute Auto 0 /uL (0-100); Basophils Percent Auto 1.7 % (0-2); Eosinophils Absolute Auto 0 /uL (0-450); Eosinophils Percent Auto 2.2 % (2-4); Hematocrit 41.9 % (41-53); Hemoglobin 14.3 g/dL (13.5-17.5); Lymphocytes Absolute Auto 800 /uL (1100-4500); Lymphocytes Percent Auto 33.4 % (25-40); Mean Corpuscular Hemoglobin 28.8 PG (26-34); Mean Corpuscular Volume 84.7 fL (80-100); Monocytes Absolute Auto 200 /uL (0-900); Monocytes Percent Auto 6.8 % (3-14); Neutrophils Absolute Auto 1300 /uL (1500-7000); Neutrophils Percent Auto 55.9 % (50-75); Platelet Count 166 X10^3/uL (150-400); Red Blood Cell Count 4.95 X10^6/uL (4.5-5.9); Red Cell Distribution Width 19.5 % (11.6-14.8); White Blood Cell Count 2.3 X10^3/uL (4.5-11.0)
--- NOTE | 2018-06-22 14:20 | ONC.SCHED ---
Levofloxacin- script approved MA#[id number]
[2018-07-01 08:05] LABS: Add Manual Diff / Slide Review NO; Basophils Absolute Auto 100 /uL (0-100); Basophils Percent Auto 2.5 % (0-2); Eosinophils Absolute Auto 100 /uL (0-450); Eosinophils Percent Auto 2.4 % (2-4); Hematocrit 42.6 % (41-53); Hemoglobin 14.2 g/dL (13.5-17.5); Lymphocytes Absolute Auto 1000 /uL (1100-4500); Lymphocytes Percent Auto 38.8 % (25-40); Mean Corpuscular HGB Conc 33.4 % (30-36); Mean Corpuscular Volume 86.7 fL (80-100); Monocytes Absolute Auto 500 /uL (0-900); Monocytes Percent Auto 18.2 % (3-14); Neutrophils Absolute Auto 1000 /uL (1500-7000); Neutrophils Percent Auto 38.1 % (50-75); Platelet Count 238 X10^3/uL (150-400); Red Blood Cell Count 4.91 X10^6/uL (4.5-5.9); Red Cell Distribution Width 18.9 % (11.6-14.8); White Blood Cell Count 2.6 X10^3/uL (4.5-11.0)
--- NOTE | 2018-07-01 08:05 | P.PNONC_ITS ---
PN -Subjective Interval history: 33 year old male with nodular sclerosis classical Hodgkin's lymphoma, IIB. ABVD treatment initiated March 11, 2018. PET-CT April 28, 2018 demonstrated excellent response; therefore bleomycin was discontinued.starting from cycle 3. Patient presents here today for cycle 5 day 1 treatment with AVD. For the past 2 weeks, patient said that he is feeling somewhat tired. And now it has already recovered. His mood has been a lot more stable than before. He denies any fever or chills. He denies any nausea or vomiting. He denies any diarrhea or constipation. Oncological History [place] Shrestha II is a 33 year old male without any past medical or surgical history. Patient presented with ?massive? weight loss of about 20 lb over 2-3 months and progressive loss of energy, as well as early fullness after eating even though feeling hungry. He was initially evaluated by [facility] on January 26, 2018. On physical examination, lymphadenopathy was noted in the right neck and supraclavicular region. CT soft tissue neck without contrast was obtained on February 01, 2018 that showed malignant appearing adenopathy bilaterally within the upper mediastinum, and the right neck inferiorly and extending into the right supraclavicular fossa; these then extends into the right axilla to a mild degree. A small degree of adenopathy was present at the inferior aspect of the left supraclavicular fossa contiguous with the definite left-sided adenopathy present within the mediastinum. Note was made of significant compression of the lower margin of the trachea and the visualized portion of the right mainstream bronchus. February 08, 2018 CT scan of the chest abdomen and pelvis with contrast was performed. The results showed bilateral bulky neck base lymph nodes, right supraclavicular fossa, mediastinal and bilateral hilar lymphadenopathy concerning for lymphoma or metastatic disease, 1.1 cm retrocaval upper retroperitoneal lymphadenopathy concerning for lymphoma versus metastatic disease, 2 mm nonobstructing bilateral renal stones, 4 mm right middle lobe nodule and right sided trace pleural effusion chief. Patient thereafter was referred to Dr. Calvo for excisional biopsy. February 10, 2018, Dr. Clavo performed biopsy of right neck mass. The surgical pathology reported classic Hodgkin lymphoma. In the comment it says the architectural features of the lymphoma in these cervical lymph node biopsies favor a nodular sclerosis classical Hodgkin's lymphoma histologic subtype Patient underwent PET scan on March 03, 2018. The PET scan showed bilateral supraclavicular, bulky mediastinal, bilateral hilar, and right axillary lymphadenopathy consistent with lymphoma. No evidence of luis disease below the diaphragm, trace right pleural effusion and pericardial effusion, right maxillary sinusitis, and some non obstructive renal calculi bilaterally. Testing for hepatitis B, hepatitis C, and HIV were all nonreactive. Patient underwent port placement on February 24, [address] Calvo. He was started on ABVD cycle 1 day 1 on 03/11/2018. April 28, 2018 patient und erwent nuclear medicine PET CT scan for restaging. Overall impression marked response to treatment with significant regression of disease throughout. From cycle 3 (05/06/2018), bleomycin was stopped. He continued on AVD. - Patient Self-Reported Symptoms SR Constitution: Weight loss/gain (weight gain.) SR ears, nose, mouth, throat issues: Swollen glands (shrinking right supraclavicular fossa) SR respiratory issues: Cough (resolved. ) SR Gastrointestinal issues: Poor or no appetite (Almost normal appetite now.) SR Hematologic issues: Swollen lymph nodes (becoming samller) - Additional ROS All systems PM: reviewed and no additional remarkable complaints except as stated Home Medications and Allergies Home Medications Medication Instructions Recorded Confirmed Type multivitamin tablet 1 tab PO DAILY 02/09/18 06/03/18 History lidocaine-prilocaine See Rx Instructions .ROUTE 02/24/18 06/03/18 Rx .COMPLEX #30 gram alprazolam 1 mg PO BID-TID PRN #60 tab 05/10/18 06/03/18 Rx levofloxacin 500 mg PO DAILY #10 tab 06/17/18 Rx lorazepam 1 mg PO BEDTIME PRN #30 tab 06/17/18 Rx allopurinol [Zyloprim] 300 mg PO BID #60 tab 07/01/18 Rx Allergies Allergy/AdvReac Type Severity Reaction Status Date / Time No Known Drug Allergies Allergy Verified 02/26/18 08:22 Exam Vital signs: Last Vital Signs Temp 97.3 F L 07/01/18 08:15 Pulse 113 H 07/01/18 08:15 Resp 18 07/01/18 08:15 BP 114/74 07/01/18 08:15 Pulse Ox 99 07/01/18 08:15 ECOG 1 Narrative: Constitutional: WDWN, NAD, average body habitus, well groomed, pleasant and cooperative. HEENT: NCAT, EOMI, PERRLA, anicteric sclera, no hearing difficulty; Oral mucus membrane moist and without ulcers. Neck: Supple, symmetrical, and tracheal midline; No palpable thyromegaly. There is ONE 1 cm palpalbe lymph node in the right supraclavicular fossa. Respiratory: No use of accessory muscles. Clear to auscultation, and no wheezes or rales or rubs. Cardiovascular: Regular rate and rhythm, S1 and S2 normal, no murmurs gallops or rubs. No JVD. No pitting edema of lower extremities. Abdomen: Soft, nontender, non-distended, bowel sounds normal, no palpable organomegaly, no hernia, no palpable masses. Lower extremities: No palpable pedal edema. Lymphatic: no palpable lymph nodes in the neck, axillae, or groins. Musculoskeletal: normal gait and station, no clubbing, no cyanosis, no pitting edema. Skin: no rashes, no ulcers, no petechiae Neurological: Awake and alert and oriented x3. CN II-XII grossly intact. No focal motor or sensory deficit. Psychiatric: Good judgment, good insight, normal affect, normal thought process, cooperative, no depression, no anxiety. Results - Labs Laboratory Last Values WBC 2.6 X10^3/uL (4.5-11.0) L 07/01/18 07:41 RBC 4.91 X10^6/uL (4.5-5.9) 07/01/18 07:41 Hgb 14.2 g/dL (13.5-17.5) 07/01/18 07:41 Hct 42.6 % (41-53) 07/01/18 07:41 MCV 86.7 fL (80-100) 07/01/18 07:41 MCH 29.0 PG (26-34) 07/01/18 07:41 MCHC 33.4 % (30-36) 07/01/18 07:41 RDW 18.9 % (11.6-14.8) H 07/01/18 07:41 Plt Count 238 X10^3/uL (150-400) 07/01/18 07:41 Neut % (Auto) 38.1 % (50-75) L 07/01/18 07:41 Lymph % (Auto) 38.8 % (25-40) 07/01/18 07:41 [place] % (Auto) 18.2 % (3-14) H 07/01/18 07:41 Eos % (Auto) 2.4 % (2-4) 07/01/18 07:41 Baso % (Auto) 2.5 % (0-2) H 07/01/18 07:41 Neut # (Auto) 1000 /uL (1790-2316) L 07/01/18 07:41 Lymph # (Auto) 1000 /uL (9444-7939) L 07/01/18 07:41 [place] # (Auto) 500 /uL (0-900) 07/01/18 07:41 Eos # (Auto) 100 /uL (0-450) 07/01/18 07:41 Baso # (Auto) 100 /uL (0-100) 07/01/18 07:41 Total Counted 100 03/25/18 08:38 Seg Neutrophils % 43.0 % (38-70) 03/25/18 08:38 Band Neutrophils % 1.0 % (3-7) L 03/25/18 08:38 Lymphocytes % (Manual) 32.0 % (25-45) 03/25/18 08:38 Atypical Lymphs % 2.0 % (-0) H 03/25/18 08:38 Monocytes % (Manual) 12.0 % (2-11) H 03/25/18 08:38 Eosinophils % (Manual) 7.0 % (2-4) H 03/25/18 08:38 Basophils % (Manual) 3.0 % (0-1) H 03/25/18 08:38 Metamyelocytes % Cancelled 05/06/18 09:10 Myelocytes % Cancelled 05/06/18 09:10 Promyelocytes % Cancelled 05/06/18 09:10 Blast Cells % Cancelled 05/06/18 09:10 Neutrophils # (Manual) 1496 /uL (7444-1823) L 03/25/18 08:38 Nucleated RBCs Cancelled 05/06/18 09:10 Differential Comment Cancelled 05/06/18 09:10 Hypersegmented Neuts Cancelled 05/06/18 09:10 Hypogranular Neuts Cancelled 05/06/18 09:10 Reactive Lymphocytes Cancelled 05/06/18 09:10 Plasma Cells Cancelled 05/06/18 09:10 Smudge Cells Cancelled 05/06/18 09:10 Other Cell Type Cancelled 05/06/18 09:10 Toxic Granulation Cancelled 05/06/18 09:10 Toxic Vacuolation Cancelled 05/06/18 09:10 Dohle Bodies Cancelled 05/06/18 09:10 Cyrus Rods Cancelled 05/06/18 09:10 WBC Morphology Comment Cancelled 05/06/18 09:10 Platelet Estimate Cancelled 05/06/18 09:10 Clumped Platelets Cancelled 05/06/18 09:10 Plt Morphology Comment Cancelled 05/06/18 09:10 RBC Morphology Not Reportable 06/10/18 10:53 Dimorphic RBCs Cancelled 05/06/18 09:10 Polychromasia Cancelled 05/06/18 09:10 Hypochromasia 1+ H 04/22/18 09:07 Poikilocytosis 1+ H 06/10/18 10:53 Basophilic Stippling Cancelled 05/06/18 09:10 Anisocytosis 2+ H 06/10/18 10:53 Microcytosis 1+ H 03/25/18 08:38 Macrocytosis Cancelled 05/06/18 09:10 Spherocytes Cancelled 05/06/18 09:10 Pappenheimer Bodies Cancelled 05/06/18 09:10 Sickle Cells Cancelled 05/06/18 09:10 Target Cells Cancelled 05/06/18 09:10 Tear Drop Cells Cancelled 05/06/18 09:10 Ovalocytes Cancelled 05/06/18 09:10 Stomatocytes Cancelled 05/06/18 09:10 Helmet Cells Cancelled 05/06/18 09:10 [place] Bodies Cancelled 05/06/18 09:10 [place] Rings Cancelled 05/06/18 09:10 Roper Cells Cancelled 05/06/18 09:10 Acanthocytes (Spur) Cancelled 05/06/18 09:10 Rouleaux Cancelled 05/06/18 09:10 Schistocytes Cancelled 05/06/18 09:10 ESR 102 MM/HR (0-15) H 03/03/18 12:29 Sodium 138 mmol/L (137-145) 07/01/18 07:41 Potassium 4.1 mmol/L (3.4-5.1) 07/01/18 07:41 Chloride 100 mmol/L (98-107) 07/01/18 07:41 Carbon Dioxide 29 mmol/L (22-32) 07/01/18 07:41 BUN 12 mg/dL (9-20) 07/01/18 07:41 Creatinine 0.70 mg/dL (0.66-1.25) 07/01/18 07:41 Estimated GFR > 60.0 mL/min (>60) 07/01/18 07:41 BUN/Creatinine Ratio 17.1 (6-22) 07/01/18 07:41 Glucose 83 mg/dL (70-100) 07/01/18 07:41 Uric Acid 2.3 mg/dL (3.5-8.5) L 06/17/18 09:18 Calcium 9.2 mg/dL (8.4-10.2) 07/01/18 07:41 Total Bilirubin 0.3 mg/dL (0.2-1.3) 07/01/18 07:41 AST 22 IU/L (17-59) 07/01/18 07:41 ALT 32 IU/L (21-72) 07/01/18 07:41 Alkaline Phosphatase 60 U/L (38-126) 07/01/18 07:41 Lactate Dehydrogenase 291 U/L (313-618) L 07/01/18 07:41 Total Protein 7.4 g/dL (6.3-8.2) 07/01/18 07:41 Albumin 4.4 g/dL (3.5-5.0) 07/01/18 07:41 Globulin 3.0 g/dL (1.7-4.1) 07/01/18 07:41 Albumin/Globulin Ratio 1.5 (1.0-2.8) 07/01/18 07:41 Yuzd-3-[id number] 1.54 mg/L (< 2.52) 05/20/18 09:16 Hep Bs Antigen Negative s/c (NEGATIVE) 03/03/18 12:29 Hep Bs Antibody Reactive (Nonreactive) A 03/03/18 12:29 Hep B Core Total Ab Nonreactive (Nonreactive) 03/03/18 12:29 Hep B Core IgM Ab Nonreactive (Nonreactive) 03/03/18 12:29 Hepatitis C Antibody Negative s/c (NEGATIVE) 03/03/18 12:29 HIV 1&2 Antibody Negative (NEGATIVE) 03/03/18 12:29 Assessment and Plan (1) Hodgkin lymphoma, nodular sclerosis Problem details: Presented with weight loss, weakness, and right neck and supraclavicular region enlarging masses. Biopsy of right neck mass 02/10/2018: nodular sclerosis classical Hodgkin's lymphoma. CT (02/01/2018, 02/08/2018) and PET/CT (03/03/2018) showed the disease confined to neck, chest above the diaphragm. Thus stage IIB with unfavorable risk factors (NCCN guideline: bulky >10cm, ESR >=50, #luis sites >3, B symptoms). MUGA 03/10/2018: EF 62.6% Assessment: Patient has a stage IIB Hodgkin's lymphoma with unfavorable risk factors. ABVD treatment initiated March 11, 2018. PET-CT scan 04/28/2018 showed negative scan indicative of excellent response. Therefore, bleomycin has been discontinued starting since cycle 3. He presents here for cycle 5 day 1 AVD. I reviewed the laboratory tests with the patient. Patient has an ANC of 1.0. I explained to the patient that there are studies that have linked the use of G-CSF with risk of pulmonary fibrosis in patients with Hodgkin's lymphoma treated with the current regimen. The guidelines recommend not using growth factors. However there are also some anecdotal report arguing against this thought. I talked with the patient that more importantly he needs to call us any time when he does not feel comfortable or is having fever or chills. Patient voiced understanding. Plan: 1. Ok to proceed to cycle 5 day 1 2. Continue Allopurinol 300 mg bid 3. RTC in 1 week for eval, CBC 5. Return to clinic in 2 weeks for C5D15, provider visit, cbc, cmp, uric acid, LDH (2) Depression Depression also generalized anxiety disorder. The depression most likely is related to the chemotherapy. However patient also reports outside factors which are contributing. He is seeing a counselor weekly. He is taking lorazepam at night for sleep alprazolam occasionally during the day however he is taking most days. Patient is very much concerned about the possible addiction to benzos or Xanax. As a result patient is taking Xanax only once a day. But he reports that Xanax is clearly helpful in terms of depression and anxiety. On exam today pt reports his mood is much better and his anxiety is not as bad. Also sleeping better. On previous visits x 2 we discussed SSRI/SSNI, both of which he has declined. Plan: Cont with therapist every week Continue Xanax PRN, pt has been instructed to slowly wean off and he has been compliant with this request. Continue Ativan before going to bed, pt has been instructed to slowly wean off also compliant with this as well. (3) Insomnia Improved. Cont meeting with counselor, cont daily effexor and as needed xanax during the day, ativan as needed at night for sleep. Pt is weaning off both
[2018-07-01 08:15] VITALS: BP 114/74; PULSE 113; RESP 18; TEMP 36.3; O2SAT 99
[2018-07-01 08:15] LABS: Alanine Aminotransferase 32 IU/L (21-72); Albumin 4.4 g/dL (3.5-5.0); Albumin Globulin Ratio 1.5 (1.0-2.8); Alkaline Phosphatase 60 U/L (38-126); Aspartate Aminotransferase 22 IU/L (17-59); BUN Creatinine Ratio 17.1 (6-22); Bilirubin Total 0.3 mg/dL (0.2-1.3); Blood Urea Nitrogen 12 mg/dL (9-20); Calcium 9.2 mg/dL (8.4-10.2); Carbon Dioxide 29 mmol/L (22-32); Chloride 100 mmol/L (98-107); Estimated Glomerular Filt Rate > 60.0 mL/min (>60); Glucose 83 mg/dL (70-100); HEMOLYSIS < 15 (0-50); Lactate Dehydrogenase 291 U/L (313-618); Potassium 4.1 mmol/L (3.4-5.1); Sodium 138 mmol/L (137-145); Total Protein 7.4 g/dL (6.3-8.2)
[2018-07-01] MEDS: DEXAMETHASONE 12 MG in SODIUM CHLORIDE 0.9% 50 ML 212 ML IV (08:51)
[2018-07-01] MEDS: ACETAMINOPHEN 325 MG TABLET 650 MG PO (08:57)
[2018-07-01] MEDS: diphenhydrAMINE 25 MG TABLET PO (08:57)
[2018-07-01] MEDS: LORazepam 0.5 MG TABLET PO (08:57)
[2018-07-01] MEDS: SODIUM CHLORIDE 0.9% 100 ML 21 ML IV (08:58)
[2018-07-01] MEDS: FOSAPREPITANT 150 MG in SODIUM CHLORIDE 0.9% 150 ML 300 ML IV (09:15)
[2018-07-01] MEDS: ONDANSETRON 16 MG in SODIUM CHLORIDE 0.9% 50 ML 232 ML IV (10:01)
[2018-07-01] MEDS: SODIUM CHLORIDE 0.9% IV (10:30)
[2018-07-01] MEDS: DOXORUBICIN HCL IV (10:30)
[2018-07-01] MEDS: ISOOSMOTIC VEHICLE IV (11:50)
[2018-07-01] MEDS: VINBLASTINE IV (11:50)
[2018-07-01] MEDS: DEXTROSE 5% IV (12:12)
[2018-07-01] MEDS: DACARBAZINE IV (12:12)
[2018-07-08 11:32] LABS: Add Manual Diff / Slide Review NO; Basophils Absolute Auto 0 /uL (0-100); Basophils Percent Auto 1.5 % (0-2); Eosinophils Absolute Auto 100 /uL (0-450); Eosinophils Percent Auto 2.3 % (2-4); Hematocrit 40.9 % (41-53); Hemoglobin 13.8 g/dL (13.5-17.5); Lymphocytes Absolute Auto 1000 /uL (1100-4500); Lymphocytes Percent Auto 33.5 % (25-40); Mean Corpuscular HGB Conc 33.8 % (30-36); Mean Corpuscular Hemoglobin 29.3 PG (26-34); Mean Corpuscular Volume 86.7 fL (80-100); Monocytes Absolute Auto 100 /uL (0-900); Monocytes Percent Auto 4.2 % (3-14); Neutrophils Absolute Auto 1700 /uL (1500-7000); Neutrophils Percent Auto 58.5 % (50-75); Platelet Count 229 X10^3/uL (150-400); Red Blood Cell Count 4.72 X10^6/uL (4.5-5.9); Red Cell Distribution Width 18.4 % (11.6-14.8)
--- NOTE | 2018-07-15 08:23 | P.PNONC_ITS ---
PN -Subjective Interval history: 33 year old male with nodular sclerosis classical Hodgkin's lymphoma, IIB. ABVD treatment initiated March 11, 2018. PET-CT April 28, 2018 demonstrated excellent response; therefore bleomycin was discontinued.starting from cycle 3. Patient came here today for cycle 5 day 15 AVD. Patient reported that for the past 1 cycle or so, patient has noticed exquisite sensitivity to tastes and smells. Patient said that he is able to taste the saline when it is infused to him. At least partially because of the super sensitive taste, patient has some problems with nausea. But no vomiting. Patient is using Zofran with excellent control. Patient is complaining mild fatigue. He denies nausea or vomiting. He denies night sweats. Patient's mood has improved dramatically. I do not think he is depressed any more. Oncological History [place] Shrestha II is a 33 year old male without any past medical or surgical history. Patient presented with ?massive? weight loss of about 20 lb over 2-3 months and progressive loss of energy, as well as early fullness after eating even though feeling hungry. He was initially evaluated by [facility] on January 26, 2018. On physical examination, lymphadenopathy was noted in the right neck and supraclavicular region. CT soft tissue neck without contrast was obtained on February 01, 2018 that showed malignant appearing adenopathy bilaterally within the upper mediastinum, and the right neck inferiorly and extending into the right supraclavicular fossa; these then extends into the right axilla to a mild degree. A small degree of adenopathy was present at the inferior aspect of the left supraclavicular fossa contiguous with the definite left-sided adenopathy present within the mediastinum. Note was made of significant compression of the lower margin of the trachea and the visualized portion of the right mainstream bronchus. February 08, 2018 CT scan of the chest abdomen and pelvis with contrast was performed. The results showed bilateral bulky neck base lymph nodes, right supraclavicular fossa, mediastinal and bilateral hilar lymphadenopathy concerning for lymphoma or metastatic disease, 1.1 cm retrocaval upper retroperitoneal lymphadenopathy concerning for lymphoma versus metastatic disease, 2 mm nonobstructing bilateral renal stones, 4 mm right middle lobe nodule and right sided trace pleural effusion chief. Patient thereafter was referred to Dr. Calvo for excisional biopsy. February 10, 2018, Dr. Calvo performed biopsy of right neck mass. The surgical pathology reported classic Hodgkin lymphoma. In the comment it says the architectural features of the lymphoma in these cervical lymph node biopsies favor a nodular sclerosis classical Hodgkin's lymphoma histologic subtype Patient underwent PET scan on March 03, 2018. The PET scan showed bilateral supraclavicular, bulky mediastinal, bilateral hilar, and right axillary lymphadenopathy consistent with lymphoma. No evidence of luis disease below the diaphragm, trace right pleural effusion and pericardial effusion, right maxillary sinusitis, and some non obstructive renal calculi bilaterally. Testing for hepatitis B, hepatitis C, and HIV were all nonreactive. Patient underwent port placement on February 24, [address] Calvo. He was started on ABVD cycle 1 day 1 on 03/11/2018. April 28, 2018 patient underwent nuclear medicine PET CT scan for restaging. Overall impression marked response to treatment with significant regression of disease throughout. From cycle 3 (05/06/2018), bleomycin was stopped. He continued on AVD. - Patient Self-Reported Symptoms SR Constitution: Weight loss/gain (weight gain.) SR ears, nose, mouth, throat issues: Swollen glands (shrinking right supraclavicular fossa) SR respiratory issues: Cough (resolved. ) SR Gastrointestinal issues: Poor or no appetite (Almost normal appetite now.) SR Hematologic issues: Swollen lymph nodes (becoming samller) - Additional ROS All systems PM: reviewed and no additional remarkable complaints except as stated Home Medications and Allergies Home Medications Medication Instructions Recorded Confirmed Type multivitamin tablet 1 tab PO DAILY 02/09/18 06/03/18 History lidocaine-prilocaine See Rx Instructions .ROUTE 02/24/18 06/03/18 Rx .COMPLEX #30 gram alprazolam 1 mg PO BID-TID PRN #60 tab 05/10/18 06/03/18 Rx levofloxacin 500 mg PO DAILY #10 tab 06/17/18 Rx lorazepam 1 mg PO BEDTIME PRN #30 tab 06/17/18 Rx allopurinol [Zyloprim] 300 mg PO BID #60 tab 07/01/18 Rx ondansetron HCl [Zofran] 4 mg PO Q6-8H PRN #30 tab 07/06/18 Rx levofloxacin [Levaquin] 500 mg PO DAILY #14 tab 07/15/18 Rx Allergies Allergy/AdvReac Type Severity Reaction Status Date / Time No Known Drug Allergies Allergy Verified 02/26/18 08:22 Exam Vital signs: Last Vital Signs Temp 97.7 F 07/15/18 08:37 Pulse 80 07/15/18 08:37 Resp 18 07/15/18 08:37 BP 124/62 07/15/18 08:37 Pulse Ox 100 07/15/18 08:37 ECOG 1 Narrative: Constitutional: WDWN, NAD, average body habitus, well groomed, pleasant and cooperative. HEENT: NCAT, EOMI, PERRLA, anicteric sclera, no hearing difficulty; Oral mucus membrane moist and without ulcers. Neck: Supple, symmetrical, and tracheal midline; No palpable thyromegaly. There is ONE 1 cm palpalbe lymph node in the right supraclavicular fossa. Respiratory: No use of accessory muscles. Clear to auscultation, and no wheezes or rales or rubs. Cardiovascular: Regular rate and rhythm, S1 and S2 normal, no murmurs gallops or rubs. No JVD. No pitting edema of lower extremities. Abdomen: Soft, nontender, non-distended, bowel sounds normal, no palpable organomegaly, no hernia, no palpable masses. Lower extremities: No palpable pedal edema. Lymphatic: no palpable lymph nodes in the neck, axillae, or groins. Musculoskeletal: normal gait and station, no clubbing, no cyanosis, no pitting edema. Skin: no rashes, no ulcers, no petechiae Neurological: Awake and alert and oriented x3. CN II-XII grossly intact. No focal motor or sensory deficit. Psychiatric: Good judgment, good insight, normal affect, normal thought process, cooperative, no depression, no anxiety. Results - Labs Laboratory Last Values WBC 1.9 X10^3/uL (4.5-11.0) L* 07/15/18 08:30 RBC 4.50 X10^6/uL (4.5-5.9) 07/15/18 08:30 Hgb 13.3 g/dL (13.5-17.5) L 07/15/18 08:30 Hct 39.7 % (41-53) L 07/15/18 08:30 MCV 88.3 fL (80-100) 07/15/18 08:30 MCH 29.5 PG (26-34) 07/15/18 08:30 MCHC 33.4 % (30-36) 07/15/18 08:30 RDW 18.3 % (11.6-14.8) H 07/15/18 08:30 Plt Count 215 X10^3/uL (150-400) 07/15/18 08:30 Neut % (Auto) Not Reportable 07/15/18 08:30 Lymph % (Auto) Not Reportable 07/15/18 08:30 [place] % (Auto) Not Reportable 07/15/18 08:30 Eos % (Auto) Not Reportable 07/15/18 08:30 Baso % (Auto) Not Reportable 07/15/18 08:30 Neut # (Auto) 1700 /uL (2842-7559) 07/08/18 11:25 Lymph # (Auto) Not Reportable 07/15/18 08:30 [place] # (Auto) Not Reportable 07/15/18 08:30 Eos # (Auto) 100 /uL (0-450) 07/08/18 11:25 Baso # (Auto) Not Reportable 07/15/18 08:30 Total Counted 50 07/15/18 08:30 Seg Neutrophils % 34.0 % (38-70) L 07/15/18 08:30 Band Neutrophils % 1.0 % (3-7) L 03/25/18 08:38 Lymphocytes % (Manual) 48.0 % (25-45) H 07/15/18 08:30 Atypical Lymphs % 2.0 % (-0) H 03/25/18 08:38 Monocytes % (Manual) 14.0 % (2-11) H 07/15/18 08:30 Eosinophils % (Manual) 2.0 % (2-4) 07/15/18 08:30 Basophils % (Manual) 2.0 % (0-1) H 07/15/18 08:30 Metamyelocytes % Cancelled 05/06/18 09:10 Myelocytes % Cancelled 05/06/18 09:10 Promyelocytes % Cancelled 05/06/18 09:10 Blast Cells % Cancelled 05/06/18 09:10 Neutrophils # (Manual) 646 /uL (0871-2484) L 07/15/18 08:30 Nucleated RBCs Cancelled 05/06/18 09:10 Differential Comment Cancelled 05/06/18 09:10 Hypersegmented Neuts Cancelled 05/06/18 09:10 Hypogranular Neuts Cancelled 05/06/18 09:10 Reactive Lymphocytes Cancelled 05/06/18 09:10 Plasma Cells Cancelled 05/06/18 09:10 Smudge Cells Cancelled 05/06/18 09:10 Other Cell Type Cancelled 05/06/18 09:10 Toxic Granulation Cancelled 05/06/18 09:10 Toxic Vacuolation Cancelled 05/06/18 09:10 Dohle Bodies Cancelled 05/06/18 09:10 Cyrus Rods Cancelled 05/06/18 09:10 WBC Morphology Comment Cancelled 05/06/18 09:10 Platelet Estimate Cancelled 05/06/18 09:10 Clumped Platelets Cancelled 05/06/18 09:10 Plt Morphology Comment Cancelled 05/06/18 09:10 RBC Morphology See below 07/15/18 08:30 Dimorphic RBCs Cancelled 05/06/18 09:10 Polychromasia Cancelled 05/06/18 09:10 Hypochromasia 1+ H 04/22/18 09:07 Poikilocytosis 2+ H 07/15/18 08:30 Basophilic Stippling Cancelled 05/06/18 09:10 Anisocytosis 2+ H 07/15/18 08:30 Microcytosis 1+ H 03/25/18 08:38 Macrocytosis Cancelled 05/06/18 09:10 Spherocytes Cancelled 05/06/18 09:10 Pappenheimer Bodies Cancelled 05/06/18 09:10 Sickle Cells Cancelled 05/06/18 09:10 Target Cells Cancelled 05/06/18 09:10 Tear Drop Cells Cancelled 05/06/18 09:10 Ovalocytes Cancelled 05/06/18 09:10 Stomatocytes Cancelled 05/06/18 09:10 Helmet Cells Cancelled 05/06/18 09:10 [place] Bodies Cancelled 05/06/18 09:10 [place] Rings Cancelled 05/06/18 09:10 [place] Cells Cancelled 05/06/18 09:10 Acanthocytes (Spur) Cancelled 05/06/18 09:10 Rouleaux Cancelled 05/06/18 09:10 Schistocytes Cancelled 05/06/18 09:10 ESR 102 MM/HR (0-15) H 03/03/18 12:29 Sodium 139 mmol/L (137-145) 07/15/18 08:30 Potassium 3.9 mmol/L (3.4-5.1) 07/15/18 08:30 Chloride 102 mmol/L (98-107) 07/15/18 08:30 Carbon Dioxide 29 mmol/L (22-32) 07/15/18 08:30 BUN 15 mg/dL (9-20) 07/15/18 08:30 Creatinine 0.70 mg/dL (0.66-1.25) 07/15/18 08:30 Estimated GFR > 60.0 mL/min (>60) 07/15/18 08:30 BUN/Creatinine Ratio 21.4 (6-22) 07/15/18 08:30 Glucose 98 mg/dL (70-100) 07/15/18 08:30 Uric Acid 1.7 mg/dL (3.5-8.5) L 07/15/18 08:30 Calcium 9.2 mg/dL (8.4-10.2) 07/15/18 08:30 Total Bilirubin 0.3 mg/dL (0.2-1.3) 07/15/18 08:30 AST 20 IU/L (17-59) 07/15/18 08:30 ALT 24 IU/L (21-72) 07/15/18 08:30 Alkaline Phosphatase 62 U/L (38-126) 07/15/18 08:30 Lactate Dehydrogenase 265 U/L (313-618) L 07/15/18 08:30 Total Protein 6.9 g/dL (6.3-8.2) 07/15/18 08:30 Albumin 4.2 g/dL (3.5-5.0) 07/15/18 08:30 Globulin 2.7 g/dL (1.7-4.1) 07/15/18 08:30 Albumin/Globulin Ratio 1.6 (1.0-2.8) 07/15/18 08:30 Jklt-4-Iigepunhsotue 1.54 mg/L (< 2.52) 05/20/18 09:16 Hep Bs Antigen Negative s/c (NEGATIVE) 03/03/18 12:29 Hep Bs Antibody Reactive (Nonreactive) A 03/03/18 12:29 Hep B Core Total Ab Nonreactive (Nonreactive) 03/03/18 12:29 Hep B Core IgM Ab Nonreactive (Nonreactive) 03/03/18 12:29 Hepatitis C Antibody Negative s/c (NEGATIVE) 03/03/18 12:29 HIV 1&2 Antibody Negative (NEGATIVE) 03/03/18 12:29 Assessment and Plan (1) Hodgkin lymphoma, nodular sclerosis Problem details: Presented with weight loss, weakness, and right neck and supraclavicular region enlarging masses. Biopsy of right neck mass 02/10/2018: nodular sclerosis classical Hodgkin's lymphoma. CT (02/01/2018, 02/08/2018) and PET/CT (03/03/2018) showed the disease confined to neck, chest above the diaphragm. Thus stage IIB with unfavorable risk factors (NCCN guideline: bulky >10cm, ESR >=50, #luis sites >3, B symptoms). MUGA 03/10/2018: EF 62.6% Assessment: Patient has a stage IIB Hodgkin's lymphoma with unfavorable risk factors. ABVD treatment initiated March 11, 2018. PET-CT scan 04/28/2018 showed negative scan indicative of excellent response. Therefore, bleomycin has been discontinued starting since cycle 3. He presents here for cycle 5 day 15 AVD. I reviewed the laboratory tests with the patient. Patient has an ANC of 0.646. Plan: 1. Ok to proceed to cycle 5 day 15 2. Continue Allopurinol 300 mg bid 3. RTC in 1 week for eval, CBC, CMP, wait until labs are available for review 4. Radiation Oncology referal for evaluation of the role of XRT. 5. Return to clinic in 2 weeks for C6D1, provider visit, cbc, cmp, uric acid, LDH 6. Instructed him to call for any concerns or questions. 7. Standing order given for NS 1000 cc iv over one hour prn once a week. (2) Depression Depression also generalized anxiety disorder: Clinically, patient has improved for the last couple of weeks. Certainly will have him continue follow-up with our social organization professor Carlee. Plan: Cont with therapist every week Continue Xanax PRN, pt has been instructed to slowly wean off and he has been compliant with this request. Continue Ativan before going to bed, pt has been instructed to slowly wean off also compliant with this as well. (3) Insomnia Improved. Cont meeting with counselor, cont daily effexor and as needed xanax during the day, ativan as needed at night for sleep. Pt is weaning off both (4) Chemotherapy-induced neutropenia Today, his ANC is 646. It is anticipated to continue to decline. Will start levaquin 750 mg daily x 14 days. Instructed him to call any time for fever or chills, or go to ER.
[2018-07-15 08:37] VITALS: BP 124/62; PULSE 80; RESP 18; TEMP 36.5; O2SAT 100
[2018-07-15 08:43] LABS: Hematocrit 39.7 % (41-53); Hemoglobin 13.3 g/dL (13.5-17.5); Mean Corpuscular HGB Conc 33.4 % (30-36); Mean Corpuscular Hemoglobin 29.5 PG (26-34); Mean Corpuscular Volume 88.3 fL (80-100); Platelet Count 215 X10^3/uL (150-400); Red Cell Distribution Width 18.3 % (11.6-14.8)
[2018-07-15 08:44] LABS: Add Manual Diff / Slide Review YES; White Blood Cell Count 1.9 X10^3/uL (4.5-11.0)
[2018-07-15 08:50] LABS: Alanine Aminotransferase 24 IU/L (21-72); Albumin 4.2 g/dL (3.5-5.0); Albumin Globulin Ratio 1.6 (1.0-2.8); Alkaline Phosphatase 62 U/L (38-126); Aspartate Aminotransferase 20 IU/L (17-59); BUN Creatinine Ratio 21.4 (6-22); Bilirubin Total 0.3 mg/dL (0.2-1.3); Blood Urea Nitrogen 15 mg/dL (9-20); Calcium 9.2 mg/dL (8.4-10.2); Carbon Dioxide 29 mmol/L (22-32); Chloride 102 mmol/L (98-107); Estimated Glomerular Filt Rate > 60.0 mL/min (>60); Globulin 2.7 g/dL (1.7-4.1); Glucose 98 mg/dL (70-100); HEMOLYSIS < 15 (0-50); Lactate Dehydrogenase 265 U/L (313-618); Potassium 3.9 mmol/L (3.4-5.1); Sodium 139 mmol/L (137-145); Total Protein 6.9 g/dL (6.3-8.2); Uric Acid 1.7 mg/dL (3.5-8.5)
[2018-07-15 09:07] LABS: Neutrophils Absolute Manual 646 /uL (3000-5900); Total Cells Counted 50
[2018-07-15 09:10] LABS: Anisocytosis 2+; Poikilocytosis 2+
[2018-07-15] MEDS: DEXAMETHASONE 12 MG in SODIUM CHLORIDE 0.9% 50 ML 212 ML IV (09:45)
[2018-07-15] MEDS: ONDANSETRON 16 MG in SODIUM CHLORIDE 0.9% 50 ML 232 ML IV (10:09)
[2018-07-15] MEDS: LORazepam 0.5 MG TABLET PO (10:49)
[2018-07-15] MEDS: FOSAPREPITANT 150 MG in SODIUM CHLORIDE 0.9% 150 ML 300 ML IV (10:51)
[2018-07-15] MEDS: diphenhydrAMINE 25 MG TABLET PO (10:51)
[2018-07-15] MEDS: ACETAMINOPHEN 325 MG TABLET 650 MG PO (10:51)
[2018-07-15] MEDS: SODIUM CHLORIDE 0.9% 100 ML 21 ML IV (10:52)
[2018-07-15] MEDS: SODIUM CHLORIDE 0.9% IV (11:46)
[2018-07-15] MEDS: DOXORUBICIN HCL IV (11:46)
[2018-07-15] MEDS: ISOOSMOTIC VEHICLE IV (12:41)
[2018-07-15] MEDS: VINBLASTINE IV (12:41)
[2018-07-15 13:07] VITALS: BP 126/65; RESP 18; TEMP 36.4; O2SAT 99
[2018-07-15] MEDS: DACARBAZINE IV (13:24)
[2018-07-15] MEDS: DEXTROSE 5% IV (13:24)
[2018-07-15 13:35] VITALS: BP 101/59; PULSE 65; RESP 16; TEMP 36.8; O2SAT 99
[2018-07-20 12:51] VITALS: BP 121/72; PULSE 112; RESP 16; TEMP 36.7; O2SAT 98
[2018-07-20] MEDS: SODIUM CHLORIDE 0.9% 1,000 ML 1000 ML IV (12:58)
[2018-07-22 13:38] LABS: Add Manual Diff / Slide Review NO; Basophils Absolute Auto 0 /uL (0-100); Basophils Percent Auto 1.5 % (0-2); Eosinophils Absolute Auto 100 /uL (0-450); Eosinophils Percent Auto 2.2 % (2-4); Hematocrit 36.8 % (41-53); Hemoglobin 12.7 g/dL (13.5-17.5); Lymphocytes Absolute Auto 900 /uL (1100-4500); Lymphocytes Percent Auto 29.6 % (25-40); Mean Corpuscular HGB Conc 34.6 % (30-36); Mean Corpuscular Hemoglobin 30.6 PG (26-34); Mean Corpuscular Volume 88.6 fL (80-100); Monocytes Absolute Auto 100 /uL (0-900); Monocytes Percent Auto 3.8 % (3-14); Neutrophils Absolute Auto 2000 /uL (1500-7000); Neutrophils Percent Auto 62.9 % (50-75); Platelet Count 236 X10^3/uL (150-400); Red Blood Cell Count 4.15 X10^6/uL (4.5-5.9); Red Cell Distribution Width 16.8 % (11.6-14.8); White Blood Cell Count 3.2 X10^3/uL (4.5-11.0)
[2018-07-22 13:49] LABS: Alanine Aminotransferase 25 IU/L (21-72); Albumin 4.3 g/dL (3.5-5.0); Albumin Globulin Ratio 1.6 (1.0-2.8); Alkaline Phosphatase 70 U/L (38-126); Aspartate Aminotransferase 18 IU/L (17-59); Bilirubin Total 0.2 mg/dL (0.2-1.3); Blood Urea Nitrogen 8 mg/dL (9-20); Calcium 8.9 mg/dL (8.4-10.2); Carbon Dioxide 28 mmol/L (22-32); Chloride 101 mmol/L (98-107); Estimated Glomerular Filt Rate > 60.0 mL/min (>60); Globulin 2.7 g/dL (1.7-4.1); Glucose 111 mg/dL (70-100); HEMOLYSIS < 15 (0-50); Potassium 3.9 mmol/L (3.4-5.1); Sodium 138 mmol/L (137-145)
--- NOTE | 2018-07-22 14:34 | ONC.SCHED ---
Levofloxacin-approved from 07/22/18-07/26/18. Aprroved for generic.
--- NOTE | 2018-07-26 13:49 | ONC.NAV ---
Description: Counseling Activity: Met with pt go over questions that he had re: what next steps are for treatment, coping with possible need for extended treatment plan, understanding what to expect with radiation, and coping with side-effects. Pt had been feeling very hopeful, and was looking forward to an end to his chemo treatment, however he is feeling discouraged now after being told that he has some remaining nodules that will necessitate further treatment. What kind of treatment and/or medication will be determined after pt's PET scan and return to clinic in a few weeks to discuss the results/recommendations with Dr. Conner. [employer] OPERATOR spent time also processing some of the emotional challenges that pt has been experiencing in a relationship that he just ended with his girlfriend. Pt does continue to go to his psychotherapist every week, which he states has been helping him a lot in coping with the ending of that relationship, coping with cancer, and coping with the difficult dynamics that he experiences in his relationships with his parents. Plan: SSN[employer]SSBN [employer] EQU[employer] OPERATOR will f/u with pt after doing some problem-solving re: getting his antibiotic authorized by his insurance in a timely manner. They continue to deny, then approve it, which has left him for days without it being available.
[2018-07-26] MEDS: SODIUM CHLORIDE 0.9% 1,000 ML 1000 ML IV (14:34)
--- NOTE | 2018-07-29 08:22 | P.PNONC_ITS ---
PN -Subjective Interval history: 33 year old male with nodular sclerosis classical Hodgkin's lymphoma, stage IIB. ABVD treatment initiated 03/11/2018. PET-CT (04/28/2018) demonstrated excellent response; therefore bleomycin was discontinued starting from cycle 3. The patient came here today for cycle 6 day 1 AVD. He has been doing very well for the past 1 cycle. No fever and no chills. He still is having the taste changes, that is, sensitive to taste and smell. No nausea and no vomiting. Patient is reporting mild light headedness not necessarily associated with sudden position changes. But he does mention it is worse when walking around or standing. No headache and no focal neurological signs or symptoms. In addition patient reported that he himself feels somewhat dehydrated. He said the mouth feels dry and the skin feels flaky. No shortness of breath, and no chest pain. No abdominal pain. No diarrhea and no constipation. Oncological History [place] Shrestha II is a 33 year old male without any past medical or surgical history. Patient presented with ?massive? weight loss of about 20 lb over 2-3 months and progressive loss of energy, as well as early fullness after eating even though feeling hungry. He was initially evaluated by [facility] on January 26, 2018. On physical examination, lymphadenopathy was noted in the right neck and supraclavicular region. CT soft tissue neck without contrast was obtained on February 01, 2018 that showed malignant appearing adenopathy bilate rally within the upper mediastinum, and the right neck inferiorly and extending into the right supraclavicular fossa; these then extends into the right axilla to a mild degree. A small degree of adenopathy was present at the inferior aspect of the left supraclavicular fossa contiguous with the definite left-sided adenopathy present within the mediastinum. Note was made of significant compression of the lower margin of the trachea and the visualized portion of the right mainstream bronchus. February 08, 2018 CT scan of the chest abdomen and pelvis with contrast was performed. The results showed bilateral bulky neck base lymph nodes, right supraclavicular fossa, mediastinal and bilateral hilar lymphadenopathy concerning for lymphoma or metastatic disease, 1.1 cm retrocaval upper retroperitoneal lymphadenopathy concerning for lymphoma versus metastatic disease, 2 mm nonobstructing bilateral renal stones, 4 mm right middle lobe nodule and right sided trace pleural effusion chief. Patient thereafter was referred to Dr. Calvo for excisional biopsy. February 10, 2018, Dr. Calvo performed biopsy of right neck mass. The surgical pathology reported classic Hodgkin lymphoma. In the comment it says the architectural features of the lymphoma in these cervical lymph node biopsies favor a nodular sclerosis classical Hodgkin's lymphoma histologic subtype Patient underwent PET scan on March 03, 2018. The PET scan showed bilateral supraclavicular, bulky mediastinal, bilateral hilar, and right axillary lymphadenopathy consistent with lymphoma. No evidence of luis disease below the diaphragm, trace right pleural effusion and pericardial effusion, right maxillary sinusitis, and some non obstructive renal calculi bilaterally. Testing for hepatitis B, hepatitis C, and HIV were all nonreactive. Patient underwent port placement on February 24, [address] Calvo. He was started on ABVD cycle 1 day 1 on 03/11/2018. April 28, 2018 patient underwent nuclear medicine PET CT scan for restaging. Overall impression marked response to treatment with significant regression of disease throughout. From cycle 3 (05/06/2018), bleomycin was stopped. He continued on AVD. - Patient Self-Reported Symptoms SR Constitution: Weight loss/gain (weight gain.) SR ears, nose, mouth, throat issues: Swollen glands (shrinking right supraclav icular fossa) SR respiratory issues: Cough (resolved. ) SR Gastrointestinal issues: Poor or no appetite (Almost normal appetite now.) SR Hematologic issues: Swollen lymph nodes (becoming samller) - Additional ROS All systems PM: reviewed and no additional remarkable complaints except as stated Home Medications and Allergies Home Medications Medication Instructions Recorded Confirmed Type multivitamin tablet 1 tab PO DAILY 02/09/18 07/29/18 History lidocaine-prilocaine See Rx Instructions .ROUTE 02/24/18 07/29/18 Rx .COMPLEX #30 gram alprazolam 1 mg PO BID-TID PRN #60 tab 05/10/18 07/29/18 Rx levofloxacin 500 mg PO DAILY #10 tab 06/17/18 07/29/18 Rx ondansetron HCl [Zofran] 4 mg PO Q6-8H PRN #30 tab 07/06/18 07/29/18 Rx allopurinol [Zyloprim] 300 mg PO BID #60 tab 07/29/18 Rx levofloxacin [Levaquin] 500 mg PO DAILY #14 tab 07/29/18 Rx lorazepam 1 mg PO BEDTIME PRN #30 tab 07/29/18 Rx Allergies Allergy/AdvReac Type Severity Reaction Status Date / Time No Known Drug Allergies Allergy Verified 02/26/18 08:22 Exam Vital signs: Last Vital Signs Temp 97.5 F L 07/29/18 08:31 Pulse 81 07/29/18 08:31 Resp 18 07/29/18 08:31 BP 105/67 07/29/18 08:31 Pulse Ox 99 07/29/18 08:31 ECOG 1 Narrative: Constitutional: WDWN, NAD, average body habitus, well groomed, pleasant and co operative. HEENT: NCAT, EOMI, PERRLA, anicteric sclera; Oral mucus membrane moist and without ulcers. Neck: Supple; No palpable thyromegaly. There is 1 cm palpalbe lymph node, soft, in the right supraclavicular fossa. Respiratory: CTAB, no wheezes. Cardiovascular: RRR, S1 and S2 normal, no murmurs gallops or rubs. No JVD. Abdomen: Soft, NTND, no palpable organomegaly, no hernia, no palpable masses. Lower extremities: No palpable pedal edema. Musculoskeletal: normal gait and station, no clubbing, no cyanosis, no pitting edema. Skin: no rashes, no ulcers, no petechiae Neurological: Awake and alert and oriented x3. CN II-XII grossly intact. No focal motor or sensory deficit. Psychiatric: Good judgment, good insight, normal affect, normal thought process, cooperative Results - Labs Laboratory Last Values WBC 1.8 X10^3/uL (4.5-11.0) L* 07/29/18 08:38 RBC 4.44 X10^6/uL (4.5-5.9) L 07/29/18 08:38 Hgb 13.4 g/dL (13.5-17.5) L 07/29/18 08:38 Hct 39.8 % (41-53) L 07/29/18 08:38 MCV 89.8 fL (80-100) 07/29/18 08:38 MCH 30.2 PG (26-34) 07/29/18 08:38 MCHC 33.6 % (30-36) 07/29/18 08:38 RDW 17.2 % (11.6-14.8) H 07/29/18 08:38 Plt Count 219 X10^3/uL (150-400) 07/29/18 08:38 Neut % (Auto) Not Reportable 07/29/18 08:38 Lymph % (Auto) Not Reportable 07/29/18 08:38 Vermilion % (Auto) Not Reportable 07/29/18 08:38 Eos % (Auto) Not Reportable 07/29/18 08:38 Baso % (Auto) Not Reportable 07/29/18 08:38 Neut # (Auto) 2000 /uL (3634-0568) 07/22/18 13:10 Lymph # (Auto) Not Reportable 07/29/18 08:38 [place] # (Auto) Not Reportable 07/29/18 08:38 Eos # (Auto) 100 /uL (0-450) 07/22/18 13:10 Baso # (Auto) Not Reportable 07/29/18 08:38 Total Counted 50 07/29/18 08:38 Seg Neutrophils % 26.0 % (38-70) L 07/29/18 08:38 Band Neutrophils % 2.0 % (3-7) L 07/29/18 08:38 Lymphocytes % (Manual) 36.0 % (25-45) 07/29/18 08:38 Atypical Lymphs % 12.0 % (-0) H 07/29/18 08:38 Monocytes % (Manual) 16.0 % (2-11) H 07/29/18 08:38 Eosinophils % (Manual) 6.0 % (2-4) H 07/29/18 08:38 Basophils % (Manual) 2.0 % (0-1) H 07/29/18 08:38 Metamyelocytes % Cancelled 05/06/18 09:10 Myelocytes % Cancelled 05/06/18 09:10 Promyelocytes % Cancelled 05/06/18 09:10 Blast Cells % Cancelled 05/06/18 09:10 Neutrophils # (Manual) 504 /uL (9964-2918) L 07/29/18 08:38 Differential Comment Cancelled 05/06/18 09:10 Hypersegmented Neuts Cancelled 05/06/18 09:10 Hypogranular Neuts Cancelled 05/06/18 09:10 Reactive Lymphocytes Cancelled 05/06/18 09:10 Plasma Cells Cancelled 05/06/18 09:10 Smudge Cells Cancelled 05/06/18 09:10 Other Cell Type Cancelled 05/06/18 09:10 Toxic Granulation Cancelled 05/06/18 09:10 Toxic Vacuolation Cancelled 05/06/18 09:10 Dohle Bodies Cancelled 05/06/18 09:10 Cyrus Rods Cancelled 05/06/18 09:10 WBC Morphology Comment Cancelled 05/06/18 09:10 Platelet Estimate Cancelled 05/06/18 09:10 Clumped Platelets Cancelled 05/06/18 09:10 Plt Morphology Comment Cancelled 05/06/18 09:10 RBC Morphology Not Reportable 07/29/18 08:38 Dimorphic RBCs Cancelled 05/06/18 09:10 Polychromasia Cancelled 05/06/18 09:10 Hypochromasia 1+ H 04/22/18 09:07 Poikilocytosis 2+ H 07/15/18 08:30 Basophilic Stippling Cancelled 05/06/18 09:10 Anisocytosis 2+ H 07/29/18 08:38 Microcytosis 1+ H 03/25/18 08:38 Macrocytosis Cancelled 05/06/18 09:10 Spherocytes Cancelled 05/06/18 09:10 Pappenheimer Bodies Cancelled 05/06/18 09:10 Sickle Cells Cancelled 05/06/18 09:10 Target Cells Cancelled 05/06/18 09:10 Tear Drop Cells Cancelled 05/06/18 09:10 Ovalocytes Cancelled 05/06/18 09:10 Stomatocytes Cancelled 05/06/18 09:10 Helmet Cells Cancelled 05/06/18 09:10 [place] Bodies Cancelled 05/06/18 09:10 Sullivan Rings Cancelled 05/06/18 09:10 Ramone Cells Cancelled 05/06/18 09:10 Acanthocytes (Spur) Cancelled 05/06/18 09:10 Rouleaux Cancelled 05/06/18 09:10 Schistocytes Cancelled 05/06/18 09:10 ESR 102 MM/HR (0-15) H 03/03/18 12:29 Sodium 138 mmol/L (137-145) 07/29/18 08:38 Potassium 4.1 mmol/L (3.4-5.1) 07/29/18 08:38 Chloride 101 mmol/L (98-107) 07/29/18 08:38 Carbon Dioxide 28 mmol/L (22-32) 07/29/18 08:38 BUN 15 mg/dL (9-20) 07/29/18 08:38 Creatinine 0.70 mg/dL (0.66-1.25) 07/29/18 08:38 Estimated GFR > 60.0 mL/min (>60) 07/29/18 08:38 BUN/Creatinine Ratio 21.4 (6-22) 07/29/18 08:38 Glucose 88 mg/dL (70-100) 07/29/18 08:38 Uric Acid 1.7 mg/dL (3.5-8.5) L 07/15/18 08:30 Calcium 9.1 mg/dL (8.4-10.2) 07/29/18 08:38 Total Bilirubin 0.3 mg/dL (0.2-1.3) 07/29/18 08:38 AST 20 IU/L (17-59) 07/29/18 08:38 ALT 25 IU/L (21-72) 07/29/18 08:38 Alkaline Phosphatase 58 U/L (38-126) 07/29/18 08:38 Lactate Dehydrogenase 274 U/L (313-618) L 07/29/18 08:38 Total Protein 7.0 g/dL (6.3-8.2) 07/29/18 08:38 Albumin 4.3 g/dL (3.5-5.0) 07/29/18 08:38 Globulin 2.7 g/dL (1.7-4.1) 07/29/18 08:38 Albumin/Globulin Ratio 1.6 (1.0-2.8) 07/29/18 08:38 Ameu-8-Ggurenoavehlb 1.54 mg/L (< 2.52) 05/20/18 09:16 Hep Bs Antigen Negative s/c (NEGATIVE) 03/03/18 12:29 Hep Bs Antibody Reactive (Nonreactive) A 03/03/18 12:29 Hep B Core Total Ab Nonreactive (Nonreactive) 03/03/18 12:29 Hep B Core IgM Ab Nonreactive (Nonreactive) 03/03/18 12:29 Hepatitis C Antibody Negative s/c (NEGATIVE) 03/03/18 12:29 HIV 1&2 Antibody Negative (NEGATIVE) 03/03/18 12:29 Assessment and Plan (1) Hodgkin lymphoma, nodular sclerosis Problem details: Presented with weight loss, weakness, and right neck and supraclavicular region enlarging masses. Biopsy of right neck mass 02/10/2018: nodular sclerosis classical Hodgkin's lymphoma. CT (02/01/2018, 02/08/2018) and PET/CT (03/03/2018) showed the disease confined to neck, chest above the diaphragm. Thus stage IIB with unfavorable risk factors (NCCN guideline: bulky >10cm, ESR >=50, #luis sites >3, B symptoms). MUGA 03/10/2018: EF 62.6%. ABVD initiated 03/11/2018. PET-CT (04/28/2018) negative after 2 cycles. Therefore, bleomycin has been discontinued starting cycle 3. Assessment: Patient has a stage IIB Hodgkin's lymphoma with unfavorable risk factors. ABVD treatment initiated 03/11/2018. PET-CT scan 04/28/2018 showed negative scan indicative of excellent response. Therefore, bleomycin has been discontinued starting since cycle 3. He presents here for cycle 6 day 1 AVD. I reviewed the laboratory tests with the patient. Patient has an ANC of 0.504. Plan: 1. Ok to proceed to cycle 6 day 1 2. Continue Allopurinol 300 mg bid, refilled today 3. Pending Radiation Oncology referral for evaluation of the role of XRT. 5. RTC in 2 weeks for C6D15, provider visit, cbc, cmp, uric acid, LDH 6. PET CT after C6D15 (not yet ordered) 6. Instructed him to call for any concerns or questions. 7. Standing order given for NS 1000 cc iv over one hour prn once a week. (2) Depression Depression, also generalized anxiety disorder, improving. Plan: Cont with therapist every week Continue Xanax PRN, pt has been instructed to slowly wean off and he has been compliant with this request. Continue Ativan before going to bed, pt has been instructed to slowly wean off also compliant with this as well. (3) Insomnia Improved. Cont meeting with counselor, cont daily effexor and as needed xanax during the day, ativan as needed at night for sleep. Pt is weaning off both (4) Chemotherapy-induced neutropenia Today, his ANC is 504. I will continue levaquin 750 mg daily x 14 days. Instructed him to call any time for fever or chills, or go to ER.
[2018-07-29 08:31] VITALS: BP 105/67; PULSE 81; RESP 18; TEMP 36.4; O2SAT 99
--- NOTE | 2018-07-29 09:18 | ONC.NAV ---
Description: T/C pharmacy re: authorizing Levofloxacin Activity: Called [facility] to determine why pt continues to have problems getting this med filled. Pharmacist was able to override the insurance company and get the full 14-days approved, and pt can now go and pick it up later today.
[2018-07-29 09:36] LABS: Hematocrit 39.8 % (41-53); Hemoglobin 13.4 g/dL (13.5-17.5); Mean Corpuscular HGB Conc 33.6 % (30-36); Mean Corpuscular Hemoglobin 30.2 PG (26-34); Mean Corpuscular Volume 89.8 fL (80-100); Platelet Count 219 X10^3/uL (150-400); Red Blood Cell Count 4.44 X10^6/uL (4.5-5.9); Red Cell Distribution Width 17.2 % (11.6-14.8)
[2018-07-29 09:38] LABS: Add Manual Diff / Slide Review YES; White Blood Cell Count 1.8 X10^3/uL (4.5-11.0)
[2018-07-29 10:14] LABS: Alanine Aminotransferase 25 IU/L (21-72); Albumin 4.3 g/dL (3.5-5.0); Albumin Globulin Ratio 1.6 (1.0-2.8); Alkaline Phosphatase 58 U/L (38-126); Aspartate Aminotransferase 20 IU/L (17-59); BUN Creatinine Ratio 21.4 (6-22); Bilirubin Total 0.3 mg/dL (0.2-1.3); Blood Urea Nitrogen 15 mg/dL (9-20); Calcium 9.1 mg/dL (8.4-10.2); Carbon Dioxide 28 mmol/L (22-32); Chloride 101 mmol/L (98-107); Estimated Glomerular Filt Rate > 60.0 mL/min (>60); Globulin 2.7 g/dL (1.7-4.1); Glucose 88 mg/dL (70-100); HEMOLYSIS < 15 (0-50); Lactate Dehydrogenase 274 U/L (313-618); Potassium 4.1 mmol/L (3.4-5.1); Sodium 138 mmol/L (137-145)
[2018-07-29] MEDS: SODIUM CHLORIDE 0.9% 1,000 ML 500 ML IV (10:16)
[2018-07-29 10:37] LABS: Neutrophils Absolute Manual 504 /uL (3000-5900); Total Cells Counted 50
[2018-07-29 10:39] LABS: Anisocytosis 2+
[2018-07-29] MEDS: DEXAMETHASONE 12 MG in SODIUM CHLORIDE 0.9% 50 ML 212 ML IV (10:42)
[2018-07-29] MEDS: diphenhydrAMINE 25 MG TABLET PO (10:46)
[2018-07-29] MEDS: ACETAMINOPHEN 325 MG TABLET 650 MG PO (10:46)
[2018-07-29] MEDS: LORazepam 0.5 MG TABLET PO (10:46)
[2018-07-29] MEDS: FOSAPREPITANT 150 MG in SODIUM CHLORIDE 0.9% 150 ML 300 ML IV (11:06)
[2018-07-29] MEDS: ONDANSETRON 16 MG in SODIUM CHLORIDE 0.9% 50 ML 232 ML IV (11:39)
[2018-07-29] MEDS: SODIUM CHLORIDE 0.9% IV (12:11)
[2018-07-29] MEDS: DOXORUBICIN HCL IV (12:11)
[2018-07-29] MEDS: ISOOSMOTIC VEHICLE IV (13:08)
[2018-07-29] MEDS: VINBLASTINE IV (13:08)
[2018-07-29] MEDS: SODIUM CHLORIDE 0.9% 100 ML 21 ML IV (13:09)
[2018-07-29] MEDS: DACARBAZINE IV (13:18)
[2018-07-29] MEDS: DEXTROSE 5% IV (13:18)
[2018-08-02] MEDS: SODIUM CHLORIDE 0.9% 1,000 ML 1000 ML IV (14:55)
[2018-08-02 15:15] VITALS: BP 112/77; PULSE 89; RESP 16; TEMP 36.8; O2SAT 99
[2018-08-05 13:46] VITALS: BP 123/69; PULSE 82; RESP 16; TEMP 36.4
[2018-08-05] MEDS: SODIUM CHLORIDE 0.9% 1,000 ML 999 ML IV (13:47)
[2018-08-05 13:49] LABS: Add Manual Diff / Slide Review NO; Basophils Absolute Auto 0 /uL (0-100); Basophils Percent Auto 1.1 % (0-2); Eosinophils Absolute Auto 100 /uL (0-450); Eosinophils Percent Auto 2.3 % (2-4); Hematocrit 37.6 % (41-53); Hemoglobin 12.9 g/dL (13.5-17.5); Lymphocytes Absolute Auto 900 /uL (1100-4500); Lymphocytes Percent Auto 35.4 % (25-40); Mean Corpuscular HGB Conc 34.3 % (30-36); Mean Corpuscular Hemoglobin 30.7 PG (26-34); Mean Corpuscular Volume 89.3 fL (80-100); Monocytes Absolute Auto 100 /uL (0-900); Monocytes Percent Auto 3.7 % (3-14); Neutrophils Absolute Auto 1500 /uL (1500-7000); Neutrophils Percent Auto 57.5 % (50-75); Platelet Count 234 X10^3/uL (150-400); Red Blood Cell Count 4.21 X10^6/uL (4.5-5.9); Red Cell Distribution Width 16.1 % (11.6-14.8); White Blood Cell Count 2.5 X10^3/uL (4.5-11.0)
[2018-08-09 14:03] VITALS: BP 116/72; PULSE 92; RESP 16; TEMP 36.5; O2SAT 99
[2018-08-09] MEDS: SODIUM CHLORIDE 0.9% 1,000 ML 999 ML IV (14:09)
--- NOTE | 2018-08-12 09:11 | ONC.NAV ---
*Provided Last Chemo Card.
[2018-08-12 10:12] VITALS: BP 100/62; PULSE 77; RESP 16; TEMP 36.3; O2SAT 100
--- NOTE | 2018-08-12 10:16 | P.PNONC_ITS ---
PN -Subjective Interval history: 33 year old male with nodular sclerosis classical Hodgkin's lymphoma, stage IIB. ABVD treatment initiated 03/11/2018. PET-CT (04/28/2018) demonstrated excellent response; therefore bleomycin was discontinued starting from cycle 3. The patient came here today for cycle 6 day 15 AVD. He has been doing very we ll. No fever and no chills. No nausea and no vomiting. No diarrhea and no constipation. Oncological History [place] Shrestha II is a 33 year old male without any past medical or surgical history. Patient presented with ?massive? weight loss of about 20 lb over 2-3 months and progressive loss of energy, as well as early fullness after eating even though feeling hungry. He was initially evaluated by [facility] on January 26, 2018. On physical examination, lymphadenopathy was noted in the right neck and supraclavicular region. CT soft tissue neck without contrast was obtained on February 01, 2018 that showed malignant appearing adenopathy bilaterally within the upper mediastinum, and the right neck inferiorly and extending into the right supraclavicular fossa; these then extends into the right axilla to a mild degree. A small degree of adenopathy was present at the inferior aspect of the left supraclavicular fossa contiguous with the definite left-sided adenopathy present within the mediastinum. Note was made of significant compression of the lower margin of the trachea and the visualized portion of the right mainstream bronchus. February 08, 2018 CT scan of the chest abdomen and pelvis with contrast was performed. The results showed bilateral bulky neck base lymph nodes, right supraclavicular fossa, mediastinal and bilateral hilar lymphadenopathy c oncerning for lymphoma or metastatic disease, 1.1 cm retrocaval upper retroperitoneal lymphadenopathy concerning for lymphoma versus metastatic disease, 2 mm nonobstructing bilateral renal stones, 4 mm right middle lobe nodule and right sided trace pleural effusion chief. Patient thereafter was referred to Dr. Calvo for excisional biopsy. February 10, 2018, Dr. Calvo performed biopsy of right neck mass. The surgical pathology reported classic Hodgkin lymphoma. In the comment it says the architectural features of the lymphoma in these cervical lymph node biopsies favor a nodular sclerosis classical Hodgkin's lymphoma histologic subtype Patient underwent PET scan on March 03, 2018. The PET scan showed bilateral supraclavicular, bulky mediastinal, bilateral hilar, and right axillary lympha denopathy consistent with lymphoma. No evidence of luis disease below the diaphragm, trace right pleural effusion and pericardial effusion, right maxillary sinusitis, and some non obstructive renal calculi bilaterally. Testing for hepatitis B, hepatitis C, and HIV were all nonreactive. Patient underwent port placement on February 24, [address] Calvo. He was started on ABVD cycle 1 day 1 on 03/11/2018. April 28, 2018 patient underwent nuclear medicine PET CT scan for restaging. Overall impression marked response to treatment with significant regression of disease throughout. From cycle 3 (05/06/2018), bleomycin was stopped. He continued on AVD. - Patient Self-Reported Symptoms SR Constitution: Weight loss/gain (weight gain.) SR ears, nose, mouth, throat issues: Swollen glands (shrinking right supraclavicular fossa) SR respiratory issues: Cough (resolved. ) SR Gastrointestinal issues: Poor or no appetite (Almost normal appetite now.) SR Neuro issues: Lightheaded/dizzy SR Hematologic issues: Swollen lymph nodes (becoming samller) - Additional ROS All systems PM: reviewed and no additional remarkable complaints except as stated Home Medications and Allergies Home Medications Medication Instructions Recorded Confirmed Type multivitamin tablet 1 tab PO DAILY 02/09/18 08/12/18 History lidocaine-prilocaine See Rx Instructions .ROUTE 02/24/18 08/12/18 Rx .COMPLEX #30 gram alprazolam 1 mg PO BID-TID PRN #60 tab 05/10/18 08/12/18 Rx levofloxacin 500 mg PO DAILY #10 tab 06/17/18 08/12/18 Rx ondansetron HCl [Zofran] 4 mg PO Q6-8H PRN #30 tab 07/06/18 08/12/18 Rx allopurinol [Zyloprim] 300 mg PO BID #60 tab 07/29/18 08/12/18 Rx levofloxacin [Levaquin] 500 mg PO DAILY #14 tab 07/29/18 08/12/18 Rx lorazepam 1 mg PO BEDTIME PRN #30 tab 07/29/18 08/12/18 Rx Allergies Allergy/AdvReac Type Severity Reaction Status Date / Time No Known Drug Allergies Allergy Verified 02/26/18 08:22 Exam Vital signs: Last Vital Signs Temp 97.3 F L 08/12/18 10:12 Pulse 77 08/12/18 10:12 Resp 16 08/12/18 10:12 BP 100/62 08/12/18 10:12 Pulse Ox 100 08/12/18 10:12 ECOG 1 Narrative: Constitutional: WDWN, NAD, average body habitus, well groomed, pleasant and cooperative. HEENT: NCAT, EOMI, PERRLA, anicteric sclera; Oral mucus membrane moist and without ulcers. Neck: Supple; No palpable thyromegaly. There is 1 cm palpalbe lymph node, soft, in the right supraclavicular fossa. Respiratory: CTAB, no wheezes. Cardiovascular: RRR, S1 and S2 normal, no murmurs gallops or rubs. No JVD. Abdomen: Soft, NTND, no palpable organomegaly, no hernia, no palpable masses. Lower extremities: No palpable pedal edema. Musculoskeletal: normal gait and station, no clubbing, no cyanosis, no pitting edema. Skin: no rashes, no ulcers, no petechiae Neurological: Awake and alert and oriented x3. CN II-XII grossly intact. No focal motor or sensory deficit. Psychiatric: Good judgment, good insight, normal affect, normal thought process, cooperative Results - Labs Laboratory Last Values WBC 1.8 X10^3/uL (4.5-11.0) L* 08/12/18 10:05 RBC 4.28 X10^6/uL (4.5-5.9) L 08/12/18 10:05 Hgb 13.3 g/dL (13.5-17.5) L 08/12/18 10:05 Hct 38.8 % (41-53) L 08/12/18 10:05 MCV 90.7 fL (80-100) 08/12/18 10:05 MCH 31.0 PG (26-34) 08/12/18 10:05 MCHC 34.1 % (30-36) 08/12/18 10:05 RDW 16.0 % (11.6-14.8) H 08/12/18 10:05 Plt Count 237 X10^3/uL (150-400) 08/12/18 10:05 Neut % (Auto) Not Reportable 08/12/18 10:05 Lymph % (Auto) Not Reportable 08/12/18 10:05 Traill % (Auto) Not Reportable 08/12/18 10:05 Eos % (Auto) Not Reportable 08/12/18 10:05 Baso % (Auto) Not Reportable 08/12/18 10:05 Neut # (Auto) 1500 /uL (2189-7902) 08/05/18 08:30 Lymph # (Auto) Not Reportable 08/12/18 10:05 Traill # (Auto) Not Reportable 08/12/18 10:05 Eos # (Auto) 100 /uL (0-450) 08/05/18 08:30 Baso # (Auto) Not Reportable 08/12/18 10:05 Total Counted 50 07/29/18 08:38 Seg Neutrophils % 26.0 % (38-70) L 07/29/18 08:38 Band Neutrophils % 2.0 % (3-7) L 07/29/18 08:38 Lymphocytes % (Manual) 36.0 % (25-45) 07/29/18 08:38 Atypical Lymphs % 12.0 % (-0) H 07/29/18 08:38 Monocytes % (Manual) 16.0 % (2-11) H 07/29/18 08:38 Eosinophils % (Manual) 6.0 % (2-4) H 07/29/18 08:38 Basophils % (Manual) 2.0 % (0-1) H 07/29/18 08:38 Metamyelocytes % Cancelled 05/06/18 09:10 Myelocytes % Cancelled 05/06/18 09:10 Promyelocytes % Cancelled 05/06/18 09:10 Blast Cells % Cancelled 05/06/18 09:10 Neutrophils # (Manual) 504 /uL (8558-3503) L 07/29/18 08:38 Nucleated RBCs Cancelled 05/06/18 09:10 Differential Comment Cancelled 05/06/18 09:10 Hypersegmented Neuts Cancelled 05/06/18 09:10 Hypogranular Neuts Cancelled 05/06/18 09:10 Reactive Lymphocytes Cancelled 05/06/18 09:10 Plasma Cells Cancelled 05/06/18 09:10 Smudge Cells Cancelled 05/06/18 09:10 Other Cell Type Cancelled 05/06/18 09:10 Toxic Granulation Cancelled 05/06/18 09:10 Toxic Vacuolation Cancelled 05/06/18 09:10 Dohle Bodies Cancelled 05/06/18 09:10 Cyrus Rods Cancelled 05/06/18 09:10 WBC Morphology Comment Cancelled 05/06/18 09:10 Platelet Estimate Cancelled 05/06/18 09:10 Clumped Platelets Cancelled 05/06/18 09:10 Plt Morphology Comment Cancelled 05/06/18 09:10 RBC Morphology Not Reportable 07/29/18 08:38 Dimorphic RBCs Cancelled 05/06/18 09:10 Polychromasia Cancelled 05/06/18 09:10 Hypochromasia 1+ H 04/22/18 09:07 Poikilocytosis 2+ H 07/15/18 08:30 Basophilic Stippling Cancelled 05/06/18 09:10 Anisocytosis 2+ H 07/29/18 08:38 Microcytosis 1+ H 03/25/18 08:38 Macrocytosis Cancelled 05/06/18 09:10 Spherocytes Cancelled 05/06/18 09:10 Pappenheimer Bodies Cancelled 05/06/18 09:10 Sickle Cells Cancelled 05/06/18 09:10 Target Cells Cancelled 05/06/18 09:10 Tear Drop Cells Cancelled 05/06/18 09:10 Ovalocytes Cancelled 05/06/18 09:10 Stomatocytes Cancelled 05/06/18 09:10 Helmet Cells Cancelled 05/06/18 09:10 [place]-Athelstan Bodies Cancelled 05/06/18 09:10 [place] Rings Cancelled 05/06/18 09:10 Ramone Cells Cancelled 05/06/18 09:10 Acanthocytes (Spur) Cancelled 05/06/18 09:10 Rouleaux Cancelled 05/06/18 09:10 Schistocytes Cancelled 05/06/18 09:10 ESR 102 MM/HR (0-15) H 03/03/18 12:29 Sodium 138 mmol/L (137-145) 08/12/18 10:05 Potassium 4.2 mmol/L (3.4-5.1) 08/12/18 10:05 Chloride 101 mmol/L (98-107) 08/12/18 10:05 Carbon Dioxide 28 mmol/L (22-32) 08/12/18 10:05 BUN 11 mg/dL (9-20) 08/12/18 10:05 Creatinine 0.70 mg/dL (0.66-1.25) 08/12/18 10:05 Estimated GFR > 60.0 mL/min (>60) 08/12/18 10:05 BUN/Creatinine Ratio 15.7 (6-22) 08/12/18 10:05 Glucose 88 mg/dL (70-100) 08/12/18 10:05 Uric Acid 1.7 mg/dL (3.5-8.5) L 08/12/18 10:05 Calcium 9.0 mg/dL (8.4-10.2) 08/12/18 10:05 Total Bilirubin 0.3 mg/dL (0.2-1.3) 08/12/18 10:05 AST 21 IU/L (17-59) 08/12/18 10:05 ALT 17 IU/L (21-72) L 08/12/18 10:05 Alkaline Phosphatase 54 U/L (38-126) 08/12/18 10:05 Lactate Dehydrogenase 274 U/L (313-618) L 07/29/18 08:38 Total Protein 7.0 g/dL (6.3-8.2) 08/12/18 10:05 Albumin 4.5 g/dL (3.5-5.0) 08/12/18 10:05 Globulin 2.5 g/dL (1.7-4.1) 08/12/18 10:05 Albumin/Globulin Ratio 1.8 (1.0-2.8) 08/12/18 10:05 Vgxi-6-[id number] 1.54 mg/L (< 2.52) 05/20/18 09:16 Hep Bs Antigen Negative s/c (NEGATIVE) 03/03/18 12:29 Hep Bs Antibody Reactive (Nonreactive) A 03/03/18 12:29 Hep B Core Total Ab Nonreactive (Nonreactive) 03/03/18 12:29 Hep B Core IgM Ab Nonreactive (Nonreactive) 03/03/18 12:29 Hepatitis C Antibody Negative s/c (NEGATIVE) 03/03/18 12:29 HIV 1&2 Antibody Negative (NEGATIVE) 03/03/18 12:29 Assessment and Plan (1) Hodgkin lymphoma, nodular sclerosis Problem details: Presented with weight loss, weakness, and right neck and larios praclavicular region enlarging masses. Biopsy of right neck mass 02/10/2018: nodular sclerosis classical Hodgkin's lymphoma. CT (02/01/2018, 02/08/2018) and PET/CT (03/03/2018) showed the disease confined to neck, chest above the diaphragm. Thus stage IIB with unfavorable risk factors (NCCN guideline: bulky >10cm, ESR >=50, #luis sites >3, B symptoms). MUGA 03/10/2018: EF 62.6%. ABVD initiated 03/11/2018. PET-CT (04/28/2018) negative after 2 cycles. Therefore, bleomycin has been discontinued starting cycle 3. Assessment: Patient has a stage IIB Hodgkin's lymphoma with unfavorable risk factors. ABVD treatment initiated 03/11/2018. PET-CT scan 04/28/2018 showed negative scan indicative of excellent response. Therefore, bleomycin has been discontinued starting since cycle 3. He presents here for cycle 6 day 15 AVD. I reviewed the laboratory tests with the patient. Plan: 1. Ok to proceed to cycle 6 day 15 2. Continue Allopurinol 300 mg bid 3. Pending Radiation Oncology referral for evaluation of the role of XRT. 4. PET CT 5. RTC 08/19/2018 for lab only cbc, cmp, uric acid, LDH 6. RTC in 2 weeks to review the scan results 7. Instructed him to call for any concerns or questions. 8. Standing order given for NS 1000 cc iv over one hour prn once a week. (2) Depression Depression, also generalized anxiety disorder, improving. Plan: Cont with therapist every week Continue Xanax PRN, pt has been instructed to slowly wean off and he has been compliant with this request. Continue Ativan before going to bed, pt has been instructed to slowly wean off also compliant with this as well. (3) Insomnia Improved. Cont meeting with counselor, cont daily effexor and as needed xanax during the day, ativan as needed at night for sleep. Pt is weaning off both (4) Chemotherapy-induced neutropenia Today, I will continue levaquin 750 mg daily x 14 days. Instructed him to call any time for fever or chills, or go to ER.
[2018-08-12 10:20] LABS: Hematocrit 38.8 % (41-53); Hemoglobin 13.3 g/dL (13.5-17.5); Mean Corpuscular HGB Conc 34.1 % (30-36); Mean Corpuscular Volume 90.7 fL (80-100); Platelet Count 237 X10^3/uL (150-400); Red Blood Cell Count 4.28 X10^6/uL (4.5-5.9)
[2018-08-12 10:23] LABS: Add Manual Diff / Slide Review YES
[2018-08-12 10:24] LABS: White Blood Cell Count 1.8 X10^3/uL (4.5-11.0)
[2018-08-12 10:27] LABS: Alanine Aminotransferase 17 IU/L (21-72); Albumin 4.5 g/dL (3.5-5.0); Albumin Globulin Ratio 1.8 (1.0-2.8); Alkaline Phosphatase 54 U/L (38-126); Aspartate Aminotransferase 21 IU/L (17-59); BUN Creatinine Ratio 15.7 (6-22); Bilirubin Total 0.3 mg/dL (0.2-1.3); Blood Urea Nitrogen 11 mg/dL (9-20); Carbon Dioxide 28 mmol/L (22-32); Chloride 101 mmol/L (98-107); Estimated Glomerular Filt Rate > 60.0 mL/min (>60); Globulin 2.5 g/dL (1.7-4.1); Glucose 88 mg/dL (70-100); HEMOLYSIS < 15 (0-50); Potassium 4.2 mmol/L (3.4-5.1); Sodium 138 mmol/L (137-145); Uric Acid 1.7 mg/dL (3.5-8.5)
--- NOTE | 2018-08-12 10:27 | PC.NURSE ---
received critical lab result from lab, WBC 1.8, catechist aware.
[2018-08-12 10:50] LABS: Neutrophils Absolute Manual 504 /uL (3000-5900); Total Cells Counted 50
[2018-08-12 10:53] LABS: Anisocytosis 2+; Poikilocytosis 1+
[2018-08-12] MEDS: SODIUM CHLORIDE 0.9% 1,000 ML 999 ML IV (11:41)
[2018-08-12] MEDS: ACETAMINOPHEN 325 MG TABLET 650 MG PO (11:44)
[2018-08-12] MEDS: DEXAMETHASONE 12 MG in SODIUM CHLORIDE 0.9% 50 ML 212 ML IV (11:44)
[2018-08-12] MEDS: diphenhydrAMINE 25 MG TABLET PO (11:44)
[2018-08-12] MEDS: LORazepam 0.5 MG TABLET PO (11:45)
[2018-08-12] MEDS: ONDANSETRON 16 MG in SODIUM CHLORIDE 0.9% 50 ML 232 ML IV (12:32)
[2018-08-12] MEDS: FOSAPREPITANT 150 MG in SODIUM CHLORIDE 0.9% 150 ML 300 ML IV (13:05)
[2018-08-12] MEDS: DOXORUBICIN HCL IV (13:54)
[2018-08-12] MEDS: SODIUM CHLORIDE 0.9% IV (13:54)
[2018-08-12] MEDS: ISOOSMOTIC VEHICLE IV (14:40)
[2018-08-12] MEDS: VINBLASTINE IV (14:40)
[2018-08-12] MEDS: DACARBAZINE IV (15:20)
[2018-08-12] MEDS: DEXTROSE 5% IV (15:20)
--- NOTE | 2018-08-12 16:04 | ONC.SCHED ---
faxed medical records to Radiation Oncology with a request for a referral
--- NOTE | 2018-08-12 16:06 | ONC.SCHED ---
PET Scan form in Dr. Tona cason
[2018-08-19 13:45] LABS: Add Manual Diff / Slide Review NO; Basophils Absolute Auto 100 /uL (0-100); Basophils Percent Auto 2.4 % (0-2); Eosinophils Absolute Auto 100 /uL (0-450); Eosinophils Percent Auto 1.8 % (2-4); Hematocrit 38.8 % (41-53); Hemoglobin 13.3 g/dL (13.5-17.5); Lymphocytes Absolute Auto 800 /uL (1100-4500); Lymphocytes Percent Auto 25.6 % (25-40); Mean Corpuscular HGB Conc 34.4 % (30-36); Mean Corpuscular Hemoglobin 30.9 PG (26-34); Mean Corpuscular Volume 89.7 fL (80-100); Monocytes Absolute Auto 100 /uL (0-900); Neutrophils Absolute Auto 1900 /uL (1500-7000); Neutrophils Percent Auto 65.2 % (50-75); Platelet Count 229 X10^3/uL (150-400); Red Blood Cell Count 4.32 X10^6/uL (4.5-5.9); Red Cell Distribution Width 15.3 % (11.6-14.8); White Blood Cell Count 2.9 X10^3/uL (4.5-11.0)
[2018-08-19] MEDS: SODIUM CHLORIDE 0.9% 1,000 ML 999 ML IV (13:45)
[2018-08-19 14:26] LABS: HEMOLYSIS 18 (0-50); Potassium 4.3 mmol/L (3.4-5.1); Sodium 138 mmol/L (137-145)
[2018-08-19 14:28] LABS: Albumin 4.4 g/dL (3.5-5.0); Albumin Globulin Ratio 1.8 (1.0-2.8); Alkaline Phosphatase 66 U/L (38-126); Aspartate Aminotransferase 19 IU/L (17-59); Bilirubin Total 0.2 mg/dL (0.2-1.3); Blood Urea Nitrogen 16 mg/dL (9-20); Calcium 9.1 mg/dL (8.4-10.2); Carbon Dioxide 27 mmol/L (22-32); Chloride 99 mmol/L (98-107); Estimated Glomerular Filt Rate > 60.0 mL/min (>60); Globulin 2.5 g/dL (1.7-4.1); Glucose 88 mg/dL (70-100); Total Protein 6.9 g/dL (6.3-8.2)
[2018-08-19 14:45] LABS: Alanine Aminotransferase 24 IU/L (21-72)
== END ==
PROVIDERS: Nurse Practitioner Gerontology; PCP Nurse Practitioner Family; Visit Provider Internal Medicine Hematology & Oncology
DX: C81.12 Nodular sclerosis Hodgkin lymphoma, intrathoracic lymph nodes (principal)
CPT/HCPCS: 36592; 80053; 82232; 83615; 84550; 85025; 85651; 86703; 86704; 86705; 86706; 86803; 87340; 93005; 96360; 96361; 96365; 96367; 96374; 96375; 96409; 96411; 96413; 96417; 96523; 99205; 99214; 99215; J1100; J1453; J2405; J9000; J9040; J9130; J9360

== ENCOUNTER → 2020-08-27 15:53 | Outpatient (CLI) | payer OTHER, MEDICAID, SELFPAY ==
--- NOTE | 2020-08-27 15:55 | DI.RAD.S_ITS ---
PROCEDURE: XR LUMBAR SPINE MIN 4V INDICATIONS: back pain, lift injury TECHNIQUE: 5 views of the lumbar spine were acquired, including bilateral oblique views. COMPARISON: None. FINDINGS: Bones: No fracture. Minimal levocurvature. Scattered endplate Schmorl's nodes. Straightening of the normal lordotic curvature. Multilevel spondylosis/endplate changes. Diffuse facet arthropathy. Moderate narrowing of the L3-L4 in the L1-L2 disc spaces. There is also moderate narrowing of the T12-L1 disc space. Soft tissues: Overlying bowel gas pattern is normal. No suspicious soft tissue calcifications. Oblique images: No pars defects. IMPRESSION: Multilevel lumbar spondylosis and diffuse facet arthropathy as above. Straightening of the normal lordotic curvature. Dictated by: Jeffry Crews M.D. on 08/27/2020 at 16:29 Approved by: Jeffry Crews M.D. on 08/27/2020 at 16:32
== END ==
PROVIDERS: PCP Family Medicine; Referring Provider Student in an Organized Health Care Education/Training Program; Visit Provider Student in an Organized Health Care Education/Training Program
DX: S39.012A Strain of muscle, fascia and tendon of lower back, initial encounter (principal); M47.816 Spondylosis without myelopathy or radiculopathy, lumbar region; X50.0XXA Overexertion from strenuous movement or load, initial encounter
CPT/HCPCS: 72110

== ENCOUNTER → 2020-10-19 08:45 | Outpatient (CLI) | payer OTHER, MEDICAID, SELFPAY ==
--- NOTE | 2020-10-19 08:46 | DI.RAD.S_ITS ---
PROCEDURE: XR SINUS MIN 3V INDICATIONS: chronic sinusitis TECHNIQUE: 3 views of the sinuses were acquired. COMPARISON: None. FINDINGS: Sinuses: The visualized sinuses demonstrate no air-fluid levels or mucosal thickening. The visualized mastoids also appear clear. Non aerated right frontal sinus. Unclear if this is due to complete opacification versus developmental. There is also asymmetric partial opacification of the left maxillary sinus. Bones: No suspicious bony lesions. Nasal septum is midline. IMPRESSION: Non aerated right frontal sinus. Partial opacification of the left maxillary sinus. Further evaluation with sinus CT could be performed as clinically warranted. Dictated by: Jeffry Crews M.D. on 10/19/2020 at 10:14 Approved by: Jeffry Crews M.D. on 10/19/2020 at 10:17
== END ==
PROVIDERS: PCP Family Medicine; Referring Provider Registered Nurse; Visit Provider Registered Nurse
DX: J32.9 Chronic sinusitis, unspecified (principal)
CPT/HCPCS: 70220

== ENCOUNTER → 2020-11-22 07:56 | Outpatient (CLI) | payer OTHER, MEDICAID, SELFPAY ==
--- NOTE | 2020-11-22 08:24 | DI.CT.S_ITS ---
PROCEDURE: CT SINUS SCREEN WO CON INDICATIONS: opacification left max. sinus; frequent sinusitis TECHNIQUE: Noncontrast 3.0 mm axial images acquired from the frontal sinuses to the mid-sella, with coronal and sagittal reformats. For radiation dose reduction, the following was used: automated exposure control, adjustment of mA and/or kV according to patient size. COMPARISON: [facility], , XR SINUS MIN 3V, 10/19/2020, 8:47. FINDINGS: Image quality: Excellent. Mucosal thickening causes near complete opacification of the left maxillary sinus. Small mucous retention cyst versus polyp noted in the right maxillary sinus. The left ostiomeatal unit is opacified. Right ostiomeatal unit is patent. 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 Nasal septum is deviated to the right. No blanca bullosa or paradoxical turbinates. Mild, diffuse bony thickening involving the left maxillary sinus walsh. No osseous remodeling or osseous erosive changes. IMPRESSION: 1. Severe left maxillary sinusitis. 2. Right maxillary sinus mucous retention cyst versus polyp. Dictated by: Kasey Peck MD, PhD on 11/22/2020 at 10:51 Approved by: Kasey Peck MD, PhD on 11/22/2020 at 10:55
== END ==
PROVIDERS: PCP Family Medicine; Referring Provider Registered Nurse; Visit Provider Registered Nurse
DX: J32.0 Chronic maxillary sinusitis (principal); R09.81 Nasal congestion; R93.0 Abnormal findings on diagnostic imaging of skull and head, not elsewhere classified
CPT/HCPCS: 70486

== ENCOUNTER → 2021-01-30 09:10 | Outpatient (CLI) | payer OTHER, MEDICAID, SELFPAY ==
[2021-01-30 14:05] LABS: COVID19 -Nasal RAPID Negative (Negative)
== END ==
PROVIDERS: PCP Family Medicine; Visit Provider Nurse Practitioner Family
DX: Z20.822 Contact with and (suspected) exposure to COVID-19 (principal)
CPT/HCPCS: 87635; C9803

== ENCOUNTER 2021-01-31 08:25 | Day surgery (SDC) | payer OTHER, MEDICAID, SELFPAY ==
[2021-01-23 10:38] VITALS: BMI 21.1
[2021-01-31] VITALS (10 sets, daily range): BP systolic 89–119; BP diastolic 43–76; PULSE 70–87; RESP 12–18; TEMP 36.6–37.6; O2SAT 92–98; BMI 21.1
--- NOTE | 2021-01-31 | PATH_ITS ---
[facility] Accession Number: [id number] . 01 Material submitted: . nose - LEFT NASAL POLYP . 01 Diagnosis: Left Nasal Polyp, Excision: Sinonasal inflammatory polyp with old hemorrhage. [facility] 02/04/2021 1730 Local . 01 Electronically signed: . Olivia Jaimes MD, Pathologist NPI- [id number] . 01 Gross description: . The specimen is received in formalin, labeled left nasal polyp and consists of multiple soriano fragments of soft tissue measuring 5.5 x 3.5 x 2.5 cm in aggregate. The largest fragment is serially sectioned and the specimen is entirely submitted in cassettes A1-A6. ([id number]) /MRV 02/01/2021 1107 Local . 01 Pathologist provided ICD-10: J34.89, J33.0 . 01 CPT . 527220 Performed at: 01 [facility] [address] [place] [address] [address], [place], [place] [id number] MD Avelino Sandoval MD Phone: [phone]
[2021-01-31] MEDS: LACTATED RINGERS 1,000 ML 42 ML IV ×2 (09:05→11:42)
--- NOTE | 2021-01-31 09:06 | PM.PREOP ---
Pre-operative Note COVID-19 COVID-19 status: Negative Result date/Date tested (Pos, Neg/Pending): 01/30/21 Interval Note History & Physical reviewed/Exam performed by Physician: Yes Changes to H&P: No
--- NOTE | 2021-01-31 09:08 | PM.OP.1 ---
Operative Date/Time/Diagnoses Date of procedure: 01/31/21 Time of procedure: 12:40 Pre-op diagnosis: Nasal airway obstruction, left antrochoanal polyp, chronic rhinosinusitis, septal deviation, inferior turbinate hypertrophy, possible internal nasal valve restriction Post-op diagnosis: other (Patent INV's at completion) Procedure & Clinicians Procedure: Septoplasty, bilateralinferior turbinate reduction via intramural cautery, left endoscopic maxillary antrostomy with tissue removal, right endoscopic maxillary antrostomy, bilateral endoscopic anterior ethmoidectomies Same procedure as scheduled: Yes Indications: 35-year-old male with the above diagnoses incompletely managed with medical therapy presents for the above procedures. Following discussion of the material risks benefits complications and alternatives, he elected to proceed. Surgeon: León Johnson Click Yes if Unassisted: Yes Anesthesia Type: General and Local Operative Notes Findings: 2+ right septal deviation, left greater than right inferior turbinate hypertrophy. Large greater than 4 cm pedunculated polyp originating from a long stalk within the left maxillary sinus, attached to the lateral inferior maxillary sinus, stalk extendinginto the nasopharynx. There was a large patent ostomy of the fontanelle on the left side, presumably as a result of the polyp. Other sinus mucosa without obvious inflammation, no other polyps seen. Specimen(s): other (Left maxillary sinus polyp) Estimated Blood Loss (mL): 80 Procedure in detail: Following identification and confirmation of consent the patient was brought to the operating room suite and placed in the supine position. General endotracheal anesthesia was administered. I infiltrated the septum widely bilaterally with 1% lidocaine 1 100,000 epinephrine followed by temporary packing with cotton with Afrin and 4% lidocaine only anteriorly. Following sterile prep and drape, the packing was removed and I performed a right naveed-transfixion incision, elevated the right mucoperichondrial and mucoperiosteal flap. I disarticulated near the bony/cartilaginous junction and elevated the left mucoperiosteal flap. Deviated portions of the perpendicular plate of the ethmoid and vomer were resected. The residual quadrilateral cartilage was further straightened by trimming it inferiorly as well as reducing the maxillary crest. A 2 mm strip of cartilage paralleling the residual 1 cm dorsal strut was resected to further straighten the quadrilateral cartilage. The hemitransfixion incision was closed with interrupted 5 0 chromic followed by a running 4 0 plain gut mattress suture to reapproximate the septal flaps. At case completion, 20/1000th of an inch silastic splints were placed bilaterally, their posterior ends deliberately within the middle meatus, sutured anteriorly with a single 4 0 nylon. Each inferior turbinate had been previously infiltrated anteriorly with local anesthetic. A spinal needle was used to impale the length of the turbinate from anterior to posterior, and cautery on a setting of 15 was applied to the needle on slow withdrawal over 2 passes, then each inferior turbinate was outfractured. Under endoscopic guidance I infiltrated the posterior and anterior superior insertion of the left middle turbinate. 1:1000 topical epinephrine on small pledgets were placed within the middle meatus for 10 minutes prior. The middle turbinate was slightly medialized and the backbiting forceps performed uncinectomy along with the microdebrider. The stalk of the polyp was traced to the inferior lateral wall of the maxillary sinus. After the maxillary antrostomy was widened to include the large [place] fontanelle opening, curved giraffe forceps and the 30 and 70 degree endoscopes were utilized over multiple passes to eventually resect the majority of the stalk and abnormal tissue along the floor of the sinus although a small amount remained. The polyp itself was eventually resected completely through the nose although an attempt at 1 point was made to removed trans orally through the nasopharynx due to its size. The left ethmoid bulla was resected with the micro debrider to complete the anterior ethmoidectomy. On the right side I performed similar injections as well as topical treatment with epinephrine. The middle turbinate was medialized, uncinectomy was performed with backbiting forceps and the microdebrider, with care to include the natural os in continuity with the antrostomy. Anterior ethmoidectomy included resection of the ethmoid bulla. sponge counts were correct and he was extubated in the operating room and taken to recovery room in stable condition without no complication. Post-operative Condition: stable Disposition: same day surgery Plan for aftercare: Nasal saline every hour while awake, begin irrigations t.i.d. tomorrow. Polysporin to the nostrils at all times, Tylenol alternating with Advil for pain control, oxycodone for breakthrough pain. Elevate head of bed, no nose blowing, no straining for 2 weeks. Follow-up in 1 week for nasal splint removal. Afrin for bleeding only.
--- NOTE | 2021-01-31 10:06 | SUR.OPER ---
Supine on padded OR bed, head on pillow, arms padded and tucked at sides, legs uncrossed, safety belt at thigh, tape over blanket over lower legs .
[2021-01-31] MEDS: LIDOCAINE 4% SOLN 50 ML 20 ML TOP (10:15)
[2021-01-31] MEDS: LIDOCAINE 1% W/EPI 20 ML INJ (10:15)
[2021-01-31] MEDS: OXYMETAZOLINE NASAL SPRAY 15 ML 2 SPRAYS NASAL (10:16)
[2021-01-31] MEDS: BACITRACIN OINT 0.9 GM PCKT 1 APPLIC TOP (10:18)
[2021-01-31] MEDS: EPINEPHrine 1 MG/ML SUBCUT (10:20)
[2021-01-31] MEDS: OXYCODONE/ACETAMINOPHEN 5/325 TABLET 1 TAB PO (13:38)
--- NOTE | 2021-01-31 14:47 | SUR.PHASEII ---
Pt up and ambulating gait steady, all dc instructions given and pt verbalizes understanding and also states he will have his mom fill his pain rx at local pharmacy. Pt states he has all other items needed at home to recover but sent home with extra gauze and paper tape for dressing changes. Pt getting dressed now and pt states pain tolerable at 3/10 and sitting up drinking water without problems, denies nausea
--- NOTE | 2021-01-31 15:44 | SUR.PHASEII ---
1445-Pt dressed now and ready to go home, VSS, has all belongings, A&O, pain tolerable at 07/04, pt dcd in stable condition via wc dc instructions given to pts mother at [facility] and she verbalizes understanding as well. Will supervisor picking crew pain med at pharmacy
== END 2021-01-31 14:45 | disposition home or self-care (01) ==
PROVIDERS: PCP Family Medicine; Referring Provider Otolaryngology; Visit Provider Otolaryngology
PROC: (CPT 30520; principal; 2021-01-31 09:45)
PROC: (CPT 31231; 2021-01-31 09:45)
DX: J34.2 Deviated nasal septum (principal); J32.4 Chronic pansinusitis; J34.89 Other specified disorders of nose and nasal sinuses; J33.0 Polyp of nasal cavity; J34.3 Hypertrophy of nasal turbinates; C81.90 Hodgkin lymphoma, unspecified, unspecified site
CPT/HCPCS: 31267; 30520; 31254; 30802; J0171; J0330; J1100; J2405; J2704; J3010